=== PATIENT | male | born 1965 | race Caucasian/White ===

== ENCOUNTER 2018-03-10 12:16 | Emergency (ER) | payer BC ==
[2018-03-10 12:34] VITALS: RESP 18
[2018-03-10] MEDS ORDERED: SODIUM CHLORIDE 0.9% 1,000 ML IV STA (12:38)
[2018-03-10] MEDS ORDERED: MORPHINE SULFATE 2 MG/ML SYRINGE IVP STA ×2 (12:54→14:47)
[2018-03-10] MEDS ORDERED: BISOPROLOL-HCTZ 10-6.25 MG 1 EACH TAB PO STA (12:55)
[2018-03-10 13:14] LABS: Basophils % (A) 1 %; Eosinophils # (A) 0.2 k/uL (0-0.7); Eosinophils % (A) 3 %; HCT 45.8 % (39.0-53.0); HGB 15.9 gm/dL (13.0-17.5); Lymphocytes # (A) 1.4 k/uL (1.0-4.8); Lymphocytes % (A) 22 %; MCH 32.7 pg (25.0-35.0); MCHC 34.6 g/dL (31.0-37.0); MCV 94.3 fL (80.0-100.0); Mean Platelet Volume 6.5; Monocytes # (A) 0.3 k/uL (0-1.0); Monocytes % (A) 5 %; Neutrophils # (A) 4.3 k/uL (1.3-7.7); Neutrophils % (A) 68 %; Platelet Count 156 k/uL (150-450); RBC 4.86 m/uL (4.30-5.90); RDW 13.9 % (11.5-15.5); WBC 6.3 k/uL (3.8-10.6)
--- NOTE | 2018-03-10 13:14 | ED ---
Abdominal Pain HPI - General Chief Complaint: Abdominal Pain Stated Complaint: Back/Side Pain Time Seen by Provider: 03/10/18 12:36 Source: patient Mode of arrival: ambulatory Limitations: no limitations - History of Present Illness Initial Comments: 53-year-old male with past medical history of significant atherosclerotic disease including left-sided carotid endarterectomy status post CVA with no residual deficits, HTN and HLD presenting today for cc of left sided back pain. Pt states that 4 days ago while at work he noticed left sided back pain that felt deep and was not painful to touch, pt denied trauma/injury. Pain has constantly been increasing since that day and currently 8/10 deep aching pain. Pt denies any associated symptoms including abdominal pain, groin pain, hematuria, dysuria, urgency, frequency, chest pain, shortness of breath, dizziness, lightheadedness, dyspnea upon exertion. Pt presented for evaluation after 4 days of constant pain. Upon arrival pt hypertensive, pt states that he has not taken his Ziac in 4 days, he states he usually takes 10-6.5mg daily. Remainder of VS stable. - Related Data Home Medications Medication Instructions Recorded Confirmed Bisoprolol-Hctz 2.5-6.25 mg [Ziac 1 tab PO DAILY 12/22/13 04/11/16 2.5-6.25 MG] Previous Rx's Medication Instructions Recorded Aspirin 325 mg PO DAILY #30 tab 04/17/16 Atorvastatin [Lipitor] 40 mg PO HS #30 tab 04/17/16 HYDROcodone/APAP 5-325MG [[place] 1 each PO Q6HR PRN #30 tab 04/17/16 5-325] Nicotine 14Mg/24Hr Patch [Habitrol] 1 patch TRANSDERM DAILY #30 patch 04/17/16 Bisoprol/Hydrochlorothiazide [Ziac 1 each PO DAILY 30 Days #30 tab 03/10/18 10-6.25 MG] Ibuprofen [Motrin] 800 mg PO Q8H 7 Days #21 tab 03/10/18 Allergies Allergy/AdvReac Type Severity Reaction Status Date / Time shellfish derived [Shellfish] Allergy Severe Rash/Hives Verified 03/10/18 12:34 sulfamethoxazole AdvReac Severe Blistering Verified 03/10/18 12:34 [From Bactrim] all over body (not hives) trimethoprim [From Bactrim] AdvReac Severe Blistering Verified 03/10/18 12:34 all over body (not hives) monosodium glutamate [MSG] AdvReac Nausea & Verified 03/10/18 12:34 Vomiting Review of Systems ROS Statement: Those systems with pertinent positive or pertinent negative responses have been documented in the HPI. ROS Other: All systems not noted in ROS Statement are negative. Constitutional: Denies: fever, chills, night sweats ENT: Denies: ear pain, throat pain Respiratory: Denies: cough, dyspnea, wheezes, hemoptysis, stridor Cardiovascular: Denies: chest pain, palpitations, dyspnea on exertion, orthopnea , edema Gastrointestinal: Denies: abdominal pain, nausea, vomiting Genitourinary: Denies: urgency, dysuria, frequency, hematuria, testicular pain Musculoskeletal: Reports: back pain (left sided back/flank pain) Skin: Denies: rash, lesions Neurological: Denies: headache, weakness, numbness, paresthesias, confusion, abnormal gait Past Medical History Past Medical History: Hypertension Additional Past Medical History / Comment(s): psoriasis History of Any Multi-Drug Resistant Organisms: None Reported Past Surgical History: No Surgical Hx Reported Past Anesthesia/Blood Transfusion Reactions: No Reported Reaction Past Psychological History: No Psychological Hx Reported Smoking Status: Current every day smoker Past Alcohol Use History: Rare Past Drug Use History: None Reported - Past Family History Mother Family Medical History: Diabetes Mellitus General Exam - General Exam Comments Initial Comments: General: The patient is awake and alert, in no distress, and does not appear acutely ill. Pt appears well, pleasant. Eye: Pupils are equal, round and reactive to light, extra-ocular movements are intact. No nystagmus. There is normal conjunctiva bilaterally. No signs of icterus. Ears, nose, mouth and throat: There are moist mucous membranes and no oral lesions. Neck: The neck is supple, there is no tenderness or JVD.Right sided carotid artery bruit. Scarr left side of neck vertical. Cardiovascular: There is a regular rate and rhythm. No murmur, rub or gallop is appreciated. Respiratory: Lungs are clear to auscultation, respirations are non-labored, breath sounds are equal. No wheezes, stridor, rales, or rhonchi. Gastrointestinal: Soft, non-distended, non-tender abdomen without masses or organomegaly noted. No pulsating masses noted. There is no rebound or guarding present. No CVA tenderness. Bowel sounds are unremarkable. Musculoskeletal: Normal ROM at the lumbar spine, no tenderness. Strength 5/5 of the LE equally b/l. Sensation intact. DP pulses equal bilaterally 2+. No pain to palpation midline or paravertebral of the thoracic or lumbar spine. Neurological: A&O x 3. CN II-XII intact, There are no obvious motor or sensory deficits. Coordination appears grossly intact. Speech is normal. Skin: Skin is warm and dry and no rashes or lesions are noted. Psychiatric: Cooperative, appropriate mood & affect, normal judgment. Limitations: no limitations Course Vital Signs 03/10/18 03/10/18 03/10/18 12:32 13:25 15:22 Temperature 98.2 F Pulse Rate 72 73 Respiratory 18 18 Rate Blood Pressure 215/103 173/89 172/78 O2 Sat by Pulse 97 96 Oximetry 03/10/18 16:27 Temperature 97 F L Pulse Rate 88 Respiratory 18 Rate Blood Pressure 160/79 O2 Sat by Pulse 98 Oximetry Medical Decision Making - Medical Decision Making Pt with left sided constant flank/back pain with history of significant atherosclerotic and uncontrolled HTN concerning disease of the aorta vs renal calculi. CT prior to contrast revealed no kidney stone. CTA revealed borderline mildly enlarged upper abdominal, mesenteric, pelvic and left inguinal lymphadenopathy these are suspicious for early lymphoma. There are no evidence or findings suggestive of abdominal aneurysm. There is splenomegaly and hepatomegaly with hepatic proptosis. All findings were discussed with patient, including the fact the findings are concerning for lymphoma. CBC within normal limits. Patient stated that pain was relieved with morphine. It is unclear the exact etiology of patient's left-sided low back pain, pain may be due to compression of nerve due to lymphadenopathy. There are no lab findings , imaging or physical exam findings and concerning for acute process. Patient overall appears well, there is no signs of acute distress. Patient states that he is ready for discharge. Case discussed with Dr. Sheppard, who at this time feel pt is stable for d/c. Chest the importance of follow-up with primary care provider for possible lymph node biopsy to rule out lymphoma with patient. Patient verbalized understanding. Stating that he will make an appointment with his primary care provider on Monday. Patient blood pressure elevated upon arrival he was given his home dose of Ziac. Pt is out of Ziac and was discharged with prescription for 30 days. Repeat BP improved since admission and within acceptable limits. Pt discharged in stable condition, return parameters discussed in detail. - Lab Data Result diagrams: 03/10/18 13:04 03/10/18 13:04 Lab Results 03/10/18 03/10/18 03/10/18 Range/Units 13:04 13:04 13:30 WBC 6.3 (3.8-10.6) k/uL RBC 4.86 (4.30-5.90) m/uL Hgb 15.9 (13.0-17.5) gm/dL Hct 45.8 (39.0-53.0) % MCV 94.3 (80.0-100.0) fL MCH 32.7 (25.0-35.0) pg MCHC 34.6 (31.0-37.0) g/dL RDW 13.9 (11.5-15.5) % Plt Count 156 (150-450) k/uL Neutrophils % 68 % Lymphocytes % 22 % Monocytes % 5 % Eosinophils % 3 % Basophils % 1 % Neutrophils # 4.3 (1.3-7.7) k/uL Lymphocytes # 1.4 (1.0-4.8) k/uL Monocytes # 0.3 (0-1.0) k/uL Eosinophils # 0.2 (0-0.7) k/uL Basophils # 0.0 (0-0.2) k/uL Sodium 144 (137-145) mmol/L Potassium 4.3 (3.5-5.1) mmol/L Chloride 108 H (98-107) mmol/L Carbon Dioxide 29 (22-30) mmol/L Anion Gap 7 mmol/L BUN 21 H (9-20) mg/dL Creatinine 1.04 (0.66-1.25) mg/dL Est GFR (CKD-EPI)AfAm >90 (>60 ml/min/1.73 sqM) Est GFR (CKD-EPI)NonAf 83 (>60 ml/min/1.73 sqM) Glucose 124 H (74-99) mg/dL Calcium 9.3 (8.4-10.2) mg/dL Total Bilirubin 0.4 (0.2-1.3) mg/dL AST 28 (17-59) U/L ALT 51 (21-72) U/L Alkaline Phosphatase 38 (38-126) U/L Total Protein 6.6 (6.3-8.2) g/dL Albumin 4.3 (3.5-5.0) g/dL Amylase 62 (30-110) U/L Lipase 143 (23-300) U/L Urine Color Yellow Urine Appearance Clear (Clear) Urine pH 6.0 (5.0-8.0) Ur Specific [place] 1.021 (1.001-1.035) Urine Protein Trace H (Negative) Urine Glucose (UA) Negative (Negative) Urine Ketones Negative (Negative) Urine Blood Negative (Negative) Urine Nitrite Negative (Negative) Urine Bilirubin Negative (Negative) Urine Urobilinogen <2.0 (<2.0) mg/dL Ur Leukocyte Esterase Negative (Negative) Disposition Clinical Impression: Lymphadenopathy, Low back pain Disposition: HOME SELF-CARE Condition: Good Instructions: Lymphadenopathy (ED) Additional Instructions: Please use medication as discussed. Please follow-up with family doctor in the next 2 days for enlarged lymph nodes and BP medication, we recommend lymph node biopsy. Please return to emergency room if the symptoms increase or worsen or for any other concerns. Prescriptions: Bisoprol/Hydrochlorothiazide [Ziac 10-6.25 MG] 1 each PO DAILY 30 Days #30 tab Ibuprofen [Motrin] 800 mg PO Q8H 7 Days #21 tab Is patient prescribed a controlled substance at d/c from ED?: No Referrals: Hung Hwang MD [Primary Care Provider] - 1-2 days Time of Disposition: 16:11
[2018-03-10 13:23] LABS: ALT 51 U/L (21-72); AST 28 U/L (17-59); Albumin 4.3 g/dL (3.5-5.0); Alkaline Phosphatase 38 U/L (38-126); Amylase 62 U/L (30-110); Anion Gap 7 mmol/L; Blood Urea Nitrogen 21 mg/dL (9-20); Calcium 9.3 mg/dL (8.4-10.2); Carbon Dioxide 29 mmol/L (22-30); Chloride 108 mmol/L (98-107); Glucose 124 mg/dL (74-99); Lipase 143 U/L (23-300); Potassium 4.3 mmol/L (3.5-5.1); Sodium 144 mmol/L (137-145); Total Bilirubin 0.4 mg/dL (0.2-1.3); Total Protein 6.6 g/dL (6.3-8.2)
--- NOTE | 2018-03-10 14:18 | XR ---
EXAMINATION TYPE: XR KUB , 3 VIEWS DATE OF EXAM ORDERED: 03/10/2018 HISTORY: abdominal pain. COMPARISON: None. FINDINGS: The lung bases are clear. Within the abdomen, the abdominal gas pattern is normal. There is no evidence of obstruction or free air. No unusual calcifications are seen. IMPRESSION: NO ACUTE INTRA-ABDOMINAL ABNORMALITY.
[2018-03-10 14:38] LABS: Appearance,Urine Clear (Clear); Bilirubin,Urine Negative (Negative); Blood,Urine Negative (Negative); Color,Urine Yellow; Glucose,Urine (UA) Negative (Negative); Ketones,Urine Negative (Negative); Leukocyte Esterase,Urine Negative (Negative); Nitrite,Urine Negative (Negative); Protein,Urine Trace (Negative); Specific Gravity,Urine 1.021 (1.001-1.035); Urobilinogen,Urine <2.0 mg/dL (<2.0)
--- NOTE | 2018-03-10 15:21 | CT ---
EXAMINATION TYPE: CT angio abdomen pelvis DATE OF EXAM: 03/10/2018 COMPARISON: NONE HISTORY: 53-year-old male left flank pain TECHNIQUE: Contiguous axial scanning of the abdomen and pelvis before and after administration of 100 ml Isovue-370 IV contrast. Coronal/sagittal reconstructions performed. 3-D reconstructions generate d on a dedicated independent workstation. CT DLP: 2184.7 mGycm Automated exposure control for dose reduction was used. FINDINGS: Heart normal size without pericardial effusion. There is a tiny hiatal hernia noted. Strandy areas of atelectasis in the lower lungs and mild emphysematous change. No pleural effusion. Liver enlarged at 21.1 cm with diffuse low-attenuation. Subcentimeter hypodensity anterior mid liver to small for accurate CT characterization, probable cyst. Gallbladder, adrenal glands, kidneys, pancreas show no gross abnormality on noncontrast and early art erial phase imaging. Spleen enlarged measuring 18.0 cm. Scattered borderline to mildly enlarged upper abdominal lymph nodes. These measure up to 9 mm in the gastrohepatic ligament region, 1.3 cm jesus hepatis, and 1.7 cm aortocaval. Additional scattered prom inent right lower quadrant mesenteric lymph nodes measure up to 7 mm. Scattered nonenlarged mesenteri c lymph nodes are present elsewhere. No dilated small bowel, free fluid, or free air. Some prominent fluid. Small bowel loops in the lower abdomen, especially in the right lower quadrant. Appendix not visualized. Mild stool burden. No pericolonic inflammatory change. Tiny fatty umbilical hernia. Bladder urine distended. Enlarged 2.0 cm left inguinal lymph node and 1.2 cm left external iliac vandana n lymph node. Also, additional lymph nodes near the left pelvic sidewall also along the left external iliac chain measuring 8 mm and 7 mm. Mild atherosclerotic calcifications throughout the abdominal aorta and iliac arteries. Mild emphysema tous carotid calcifications at the origin of the celiac axis is also noted. No evidence for AAA. Bones: Mild degenerative changes of the hips. Additional facet arthropathy mid to lower lumbar spine. Focal disc herniation L5-S1 without spinal canal stenosis. Endplate spondylosis lower thoracic spine . IMPRESSION: 1. SCATTERED BORDERLINE AND MILDLY ENLARGED UPPER ABDOMINAL (1.3 CM JESUS HEPATIS), MESENTERIC (7 MM RIGHT LOWER QUADRANT), PELVIC (1.2 CM LEFT EXTERNAL ILIAC CHAIN), AND LEFT INGUINAL LYMPHADENOPATHY ( 2.0 CM). FINDINGS ARE NONSPECIFIC AND MAY BE REACTIVE/POST INFLAMMATORY. CORRELATE WITH PHYSICAL EXAM FINDINGS OF THE LEFT INGUINAL LYMPH NODE TO ASSESS FOR ANY SUSPICIOUS FEATURES. CLOSE CLINICAL SURVE ILLANCE IS RECOMMENDED. BIOPSY CAN BE PERFORMED IF THERE IS CONCERN FOR A MORE AGGRESSIVE ETIOLOGY NYE CH EARLY LYMPHOMA. OTHERWISE, THREE-MONTH FOLLOW-UP CT RECOMMENDED. 2. SPLENOMEGALY (18.0 CM). 3. HEPATOMEGALY (21.1 CM) WITH HEPATIC STEATOSIS. 4. NO EVIDENCE FOR AAA OR VISCERAL ARTERIAL OCCLUSION.
[2018-03-10 16:28] VITALS: BP 160/79; PULSE 88; TEMP 97
== END 2018-03-10 16:27 | disposition home or self-care (01) ==
LOC: EC 12:16
DX: M54.5 Low back pain (principal); R59.1 Generalized enlarged lymph nodes; R10.9 Unspecified abdominal pain; I10 Essential (primary) hypertension; F17.200 Nicotine dependence, unspecified, uncomplicated; Z79.899 Other long term (current) drug therapy; Z88.8 Allergy status to other drugs, medicaments and biological substances; Z88.2 Allergy status to sulfonamides; Z88.1 Allergy status to other antibiotic agents; Z91.013 Allergy to seafood; Z86.73 Personal history of transient ischemic attack (TIA), and cerebral infarction without residual deficits
CPT/HCPCS: 36415; 80053; 82150; 83690; 85025; 81003; 74018; 74174; 99284; 96374; 96376; 96361 ×3; J2270; Q9967

== ENCOUNTER 2018-03-22 09:22 | Emergency (ER) | payer BC ==
[2018-03-22 10:02] VITALS: RESP 18
[2018-03-22] MEDS ORDERED: MORPHINE SULFATE 2 MG/ML SYRINGE IM STA (10:12)
--- NOTE | 2018-03-22 10:54 | ED ---
Abdominal Pain HPI - General Chief Complaint: Abdominal Pain Stated Complaint: Side Abd Pain Time Seen by Provider: 03/22/18 09:59 Source: patient Mode of arrival: ambulatory Limitations: no limitations - History of Present Illness Initial Comments: 53-year-old male past medical history of hypertension, coronary artery atherosclerosis present today for chief complaint of left-sided abdominal mass painful to palpation. Patient states that he has been experiencing left flank pain for months he was seen here on February 28 as placed on antibiotics and given referral to general surgery. Patient was referred to Dr. Smyth. Patient attended an appointment on 03/19 where she was going to perform an ultrasound of the left abdomen on 03/29/2018. Pt states that his primary provider prescribed norco for the pain, however he states this makes his skin itch at night and he does not like to take it. Pt states that the pain persists and presents today for evaluation for persist pain/ultrasound. Patient denies any associated symptoms he denies nausea, vomiting, diarrhea, abdominal pain, back pain, urgency, frequency, dysuria, fever, chills, night sweats, chest pain , shortness of breath, dyspnea on exertion, headache, dizziness, visual changes , remainder of ROS (-). Upon arrival pt appears well, vital signs are stable there are no signs of acute distress. Pt ambulating without difficulty. - Related Data Home Medications Medication Instructions Recorded Confirmed Acetaminophen [Tylenol Extra 500 mg PO Q6H PRN 03/22/18 03/22/18 Strength] HYDROcodone/APAP 7.5-325MG [[place] 1 tab PO Q6HR PRN 03/22/18 03/22/18 7.5-325] Levofloxacin [Levaquin] 500 mg PO DAILY 03/22/18 03/22/18 Levothyroxine Sodium [Synthroid] 50 mcg PO DAILY 03/22/18 03/22/18 Testosterone Cypionate 50 mg IM QMONTH 03/22/18 03/22/18 [Depo-Testosterone] metroNIDAZOLE [Flagyl] 500 mg PO Q8H 03/22/18 03/22/18 Previous Rx's Medication Instructions Recorded Bisoprol/Hydrochlorothiazide [Ziac 1 each PO DAILY 30 Days #30 tab 03/10/18 10-6.25 MG] Allergies Allergy/AdvReac Type Severity Reaction Status Date / Time shellfish derived [Shellfish] Allergy Severe Rash/Hives Verified 03/22/18 10:02 sulfamethoxazole AdvReac Severe Blistering Verified 03/22/18 10:02 [From Bactrim] all over body (not hives) trimethoprim [From Bactrim] AdvReac Severe Blistering Verified 03/22/18 10:02 all over body (not hives) monosodium glutamate [MSG] AdvReac Nausea & Verified 03/22/18 10:02 Vomiting Review of Systems ROS Statement: Those systems with pertinent positive or pertinent negative responses have been documented in the HPI. ROS Other: All systems not noted in ROS Statement are negative. Constitutional: Denies: fever, chills, night sweats Eyes: Denies: vision change Respiratory: Denies: cough, dyspnea, wheezes, hemoptysis, stridor Cardiovascular: Denies: chest pain, palpitations, dyspnea on exertion Endocrine: Denies: fatigue Gastrointestinal: Reports: as per HPI (left flank pain/mass). Denies: abdominal pain, nausea, vomiting, diarrhea, constipation, hematemesis, melena Genitourinary: Denies: urgency, dysuria, frequency, hematuria Musculoskeletal: Denies: back pain Skin: Denies: rash, lesions Neurological: Denies: headache, weakness, numbness, paresthesias, confusion, abnormal gait Past Medical History Past Medical History: Hypertension Additional Past Medical History / Comment(s): carotid artery atherosclerosis. psoriasis History of Any Multi-Drug Resistant Organisms: None Reported Past Surgical History: No Surgical Hx Reported Past Anesthesia/Blood Transfusion Reactions: No Reported Reaction Past Psychological History: No Psychological Hx Reported Smoking Status: Current every day smoker Past Alcohol Use History: Rare Past Drug Use History: None Reported - Past Family History Mother Family Medical History: Diabetes Mellitus General Exam - General Exam Comments Initial Comments: General: The patient is awake and alert, in no distress, and does not appear acutely ill. Eye: Pupils are equal, round and reactive to light, extra-ocular movements are intact. No nystagmus. There is normal conjunctiva bilaterally. No signs of icterus. Ears, nose, mouth and throat: There are moist mucous membranes and no oral lesions. Neck: The neck is supple, there is no tenderness or JVD. Cardiovascular: There is a regular rate and rhythm. No murmur, rub or gallop is appreciated. Respiratory: Lungs are clear to auscultation, respirations are non-labored, breath sounds are equal. No wheezes, stridor, rales, or rhonchi. Gastrointestinal: No noted diaphoresis, jaundice, pallor, protecting postures or squirming. Symmetrical pigmentation of abdomen without signs of inflammation, scars, or striae. Umbilicus mildline, inverted without swelling. No dilated veins. Abdomen contour obese, no noted abdominal distention. No visible masses or palpable. No peristalsis, aortic pulsations, or ventral hernia. Bowel sounds audible in all 4 quadrants, unremarkable. No tenderness to light or deep palpation of the abdominal quadrants/regions or pelvic region. Pt does complain of pain to palpation of the questionable mass of the left flank. CVA testing negative. Liver edge, not palpable. Palpable spleen appears enlarged. right and left kidney not palpable. Superior bladder margin non-tender. Special Testing: Negative Stout, Rovsing, McBurney, Adryan, cutaneous hyperesthesia. Negative Heel Jar test. Digital rectal exam deferred. Negative penaloza turners or cullens sign Musculoskeletal: Normal ROM, no tenderness. Strength 5/5. Sensation intact. Pulses equal bilaterally 2+. Neurological: A&O x 3. CN II-XII intact, There are no obvious motor or sensory deficits. Coordination appears grossly intact. Speech is normal. Skin: Skin is warm and dry and no rashes or lesions are noted. Psychiatric: Cooperative, appropriate mood & affect, normal judgment. Limitations: no limitations Course Vital Signs 03/22/18 03/22/18 09:57 13:00 Temperature 98.6 F 98.3 F Pulse Rate 59 L 57 L Respiratory 18 18 Rate Blood Pressure 169/75 141/86 O2 Sat by Pulse 97 98 Oximetry Medical Decision Making - Medical Decision Making Physical exam unremarkable, benign abdominal exam. Laboratory studies unremarkable, no significant changes from 03/10/2018. Ultrasound was contacted to obtain copy of order for abdominal ultrasound as prescribed by general surgeon Dr. Smyth. Ultrasound revealed splenomegaly, other findings were non specific and have been discussed on 03/10/2018 after CTA was obtained. Patient was given Ultram for pain management upon discharge as he was having a reaction to the [place]. At this time feel patient is stable for discharge with follow-up with general surgery and his primary care provider. Patient verbalized understanding. Risks associated with use of Ultram discussed at length the patient who verbalized understanding. Case discussed in detail Dr. Ruelas at this time we feel patient has nonspecific left flank pain most likely due to his lymphadenopathy/splenomegaly. Pt is agreeable with plan, verbalized he is ready to go home. Pt discharged in stable condition, after return parameters discussed in detail. - Lab Data Result diagrams: 03/22/18 11:55 03/22/18 11:55 Lab Results 03/22/18 03/22/18 Range/Units 11:55 11:55 WBC 7.4 (3.8-10.6) k/uL RBC 5.15 (4.30-5.90) m/uL Hgb 15.8 (13.0-17.5) gm/dL Hct 48.5 (39.0-53.0) % MCV 94.1 (80.0-100.0) fL MCH 30.6 (25.0-35.0) pg MCHC 32.5 (31.0-37.0) g/dL RDW 14.2 (11.5-15.5) % Plt Count 139 L (150-450) k/uL Neutrophils % 70 % Lymphocytes % 18 % Monocytes % 7 % Eosinophils % 3 % Basophils % 1 % Neutrophils # 5.2 (1.3-7.7) k/uL Lymphocytes # 1.4 (1.0-4.8) k/uL Monocytes # 0.5 (0-1.0) k/uL Eosinophils # 0.2 (0-0.7) k/uL Basophils # 0.1 (0-0.2) k/uL Sodium 142 (137-145) mmol/L Potassium 4.4 (3.5-5.1) mmol/L Chloride 106 (98-107) mmol/L Carbon Dioxide 29 (22-30) mmol/L Anion Gap 7 mmol/L BUN 17 (9-20) mg/dL Creatinine 0.86 (0.66-1.25) mg/dL Est GFR (CKD-EPI)AfAm >90 (>60 ml/min/1.73 sqM) Est GFR (CKD-EPI)NonAf >90 (>60 ml/min/1.73 sqM) Glucose 117 H (74-99) mg/dL Calcium 9.3 (8.4-10.2) mg/dL Total Bilirubin 0.4 (0.2-1.3) mg/dL AST 29 (17-59) U/L ALT 58 (21-72) U/L Alkaline Phosphatase 34 L (38-126) U/L Total Protein 6.6 (6.3-8.2) g/dL Albumin 4.2 (3.5-5.0) g/dL Disposition Clinical Impression: Lymphadenopathy, Splenomegaly Disposition: HOME SELF-CARE Condition: Good Instructions: Lymphadenopathy (ED) Additional Instructions: Please use medication as discussed, these do not drive, operate machinery, or work under the influence of Ultram- no use of alcohol with this medication.. Please follow-up with general surgeon and primary care provider in next 1-2 days. Please return to emergency room if the symptoms increase or worsen or for any other concerns. Is patient prescribed a controlled substance at d/c from ED?: No Referrals: Hung Hwang MD [Primary Care Provider] - 1-2 days Maria Antonia Smyth MD [STAFF PHYSICIAN] - 1-2 days Time of Disposition: 13:21
[2018-03-22 12:10] LABS: Basophils # (A) 0.1 k/uL (0-0.2); Basophils % (A) 1 %; Eosinophils # (A) 0.2 k/uL (0-0.7); Eosinophils % (A) 3 %; HCT 48.5 % (39.0-53.0); HGB 15.8 gm/dL (13.0-17.5); Lymphocytes # (A) 1.4 k/uL (1.0-4.8); Lymphocytes % (A) 18 %; MCH 30.6 pg (25.0-35.0); MCHC 32.5 g/dL (31.0-37.0); MCV 94.1 fL (80.0-100.0); Monocytes # (A) 0.5 k/uL (0-1.0); Monocytes % (A) 7 %; Neutrophils # (A) 5.2 k/uL (1.3-7.7); Neutrophils % (A) 70 %; Platelet Count 139 k/uL (150-450); RBC 5.15 m/uL (4.30-5.90); RDW 14.2 % (11.5-15.5); WBC 7.4 k/uL (3.8-10.6)
[2018-03-22 12:20] LABS: ALT 58 U/L (21-72); AST 29 U/L (17-59); Albumin 4.2 g/dL (3.5-5.0); Alkaline Phosphatase 34 U/L (38-126); Anion Gap 7 mmol/L; Blood Urea Nitrogen 17 mg/dL (9-20); Calcium 9.3 mg/dL (8.4-10.2); Carbon Dioxide 29 mmol/L (22-30); Chloride 106 mmol/L (98-107); Glucose 117 mg/dL (74-99); Potassium 4.4 mmol/L (3.5-5.1); Sodium 142 mmol/L (137-145); Total Bilirubin 0.4 mg/dL (0.2-1.3); Total Protein 6.6 g/dL (6.3-8.2)
[2018-03-22 13:03] VITALS: BP 141/86; PULSE 57; TEMP 98.3
--- NOTE | 2018-03-22 13:05 | US ---
EXAMINATION TYPE: US abdomen complete DATE OF EXAM: 03/22/2018 COMPARISON:CT CLINICAL HISTORY: focus left flank. EXAM MEASUREMENTS: Liver Length: 22.9 cm Gallbladder Wall: 0.3 cm CBD: 0.4 cm Spleen: 17.1 cm Right Kidney: 9.8 x 4.8 x 4.7 cm Left Kidney: 11.8 x 5.8 x 5.7 cm Large body habitus, patient carrying most of his weight in his stomach. Extensive overlying bowel gas . Pancreas: Obscured by bowel gas Liver: decreased visualization of vessels suggestive of fatty infiltrate, increased attenuation, en larged, small cyst seen Gallbladder: No stones seen Evidence for sonographic Garibay's sign: no CBD: wnl Spleen: enlarged Right Kidney: wnl Left Kidney: wnl Upper IVC: wnl Abd Aorta: Obscured by overlying bowel gas LUQ scanned where patient feels large lump, no soft tissue mass seen. IMPRESSION: 1. The liver is increased in size and attenuation correlate for fatty infiltration or hepatitis. Simp le appearing left lobe hepatic cyst. 2. Correlate for splenomegaly.
[2018-03-22] MEDS ORDERED: traMADol 50 MG STARTER PACK 3 TAB BTL PO STA (13:19)
== END 2018-03-22 13:40 | disposition home or self-care (01) ==
LOC: EC 09:22
DX: R59.0 Localized enlarged lymph nodes (principal); R16.1 Splenomegaly, not elsewhere classified; R10.9 Unspecified abdominal pain; L40.9 Psoriasis, unspecified; F17.200 Nicotine dependence, unspecified, uncomplicated; Z88.2 Allergy status to sulfonamides; Z91.02 Food additives allergy status; Z91.013 Allergy to seafood; Z79.899 Other long term (current) drug therapy
CPT/HCPCS: 36415; 80053; 85025; 76700; 99284; 96372; J2270

== ENCOUNTER → 2018-05-01 | Outpatient (CLI) | payer BC ==
--- NOTE | 2018-05-01 14:44 | CT ---
EXAMINATION TYPE: CT chest w con DATE OF EXAM: 05/01/2018 COMPARISON: None HISTORY: Lymphadenopathy CT DLP: 936 mGycm, Automated exposure control for dose reduction was used. CONTRAST: Performed injected with 100 ml mL of Isovue 300. TECHNIQUE: Axial images were obtained at 5 mm thick sections. Reconstructed images are reviewed on [employer] computer in the coronal plane. FINDINGS: Portion of the thyroid visualized is normal. There is a 0.7 cm nodule within the lingula. Series 4 image 29. A low-density nodules in the anterior right middle lobe measuring 0.5 cm. Series 4 image 28. There is a 1.3 cm pretracheal lymph node present. The ascending aorta diameter at the level of the m ain pulmonary artery is 3.4 cm. The main pulmonary artery diameter at the bifurcation is 2.8 cm. Mil d coronary artery calcification is present. Limited CT sections are obtained through the upper abdomen. Some mild fatty infiltration is within th e liver. There may be a small cyst in the periphery of the right midlung measuring 1.0 cm. Series 3 i mage 48. IMPRESSIONS: 1. There is a 1.3 cm pretracheal lymph node. 2. Lung nodules within the bilateral lungs discussed above. One nodule is in each lung.
== END ==
LOC: RADCTMAIN 07:06
PROVIDERS: ATTEND Internal Medicine Hematology & Oncology
DX: R59.0 Localized enlarged lymph nodes (principal); R91.8 Other nonspecific abnormal finding of lung field; Z88.2 Allergy status to sulfonamides; Z91.013 Allergy to seafood
CPT/HCPCS: 82565; 84520; 71260; 36415; Q9967

== ENCOUNTER → 2018-06-27 | Outpatient (CLI) | payer BC ==
[2018-06-27 11:31] LABS: Blood Urea Nitrogen 12 mg/dL (9-20)
--- NOTE | 2018-06-27 16:10 | CT ---
EXAMINATION TYPE: CT ChestAbdPelvis w con DATE OF EXAM: 06/27/2018 INDICATION: Lymphadenopathy COMPARISON: 05/01/2018 CT DLP: 2607 mGycm CONTRAST: Performed with Oral Contrast and with IV Contrast, patient injected with 100 ml mL of Isovue 300. TECHNIQUE: Axial images at 5 mm thick sections. Reconstructed images in the coronal plane. Delayed images through the kidneys. FINDINGS: CT CHEST: Portion of the thyroid visualized is normal. There is a 0.5 cm density within the periphery of the anterior right middle lobe. Series 4 image 29 T his was present previously. A 0.9 cm nodules within the lingula. This was previously measured 0.[address] is recommended for reevaluation. Series 4 image 30 Previous 1.3 cm lymph node measures 1.4 cm which may be within measurement error. This has a fatty hi lum and appears stable in appearance. Shotty lymph nodes are present. The ascending aorta diameter at the level of the main pulmonary artery is 3.5 cm. The main pulmonary artery diameter at the bifurcation is 2.[address] ABDOMEN: Liver: There is a 0.8 cm hypodense area within the anterior right lobe of the liver. This was present previously. Fatty infiltration appears to be to the liver. Spleen: Normal Pancreas: Normal Adrenal glands: The adrenal glands are normal. Gallbladder: Normal Kidneys: No masses are evident. No hydronephrosis is present. No cysts are present. Delayed images were obtained through the kidneys, which remain unremarkable. Aorta: Vascular calcification is within the aorta. Inferior vena cava: Normal. CT PELVIS: Loops of bowel within the abdomen and pelvis are normal. There are loops of bowel which are incom pletely distended or lack oral contrast limiting their evaluation. Appendix: Not identified. Urinary bladder: Normal. Genitourinary structures: Prostate has mild prominence. Osseous structures: No suspicious lytic or sclerotic lesions. Sacroiliac joint degenerative changes a re present. Facet degenerative change with vacuum phenomenon is in the lower lumbar spine. Couple of sclerotic areas are within the lower thoracic spine vertebral bodies. IMPRESSIONS: 1. There may be some slight enlargement of a lingular nodule with possible enlargement of a right par atracheal lymph node. PET CT is recommended for additional workup.
== END | disposition home or self-care (01) ==
LOC: RADCTMAIN 10:30
PROVIDERS: ATTEND Internal Medicine Hematology & Oncology
DX: R59.0 Localized enlarged lymph nodes (principal); Z88.2 Allergy status to sulfonamides; Z91.013 Allergy to seafood
CPT/HCPCS: 82565; 84520; 71260; 74177; 36415; Q9967

== ENCOUNTER → 2018-11-07 | Outpatient (CLI) | payer BC ==
--- NOTE | 2018-11-07 09:32 | CT ---
EXAMINATION TYPE: CT chest w con DATE OF EXAM: 11/07/2018 COMPARISON: 06/27/2018 and 05/01/2018 HISTORY: 53-year-old male Localized enlarged lymph nodes TECHNIQUE: Contiguous axial scanning of the chest after the administration of 100 mL of Isovue 300. Coronal/sagittal reconstructions performed. CT DLP: 817.2mGycm. Automatic exposure control utilized for a dose reduction. FINDINGS: Heart normal size without pericardial effusion. Coronary vascular calcifications are present. Aorta normal caliber with conventional arch vessel branching anatomy. Right paratracheal lymph node measures up to 1.1 cm, unchanged from 05/01/2018. High right paratracheal lymph node measures 8 mm, unchanged. Bilateral axillary lymph nodes measure up to 2.1 cm, coronal image 57, unchanged and demonstrate larg e fatty hilum. No progressive lymphadenopathy from prior exam. Punctate 2 mm subpleural pulmonary nodule posterior left base, axial image 49 is unchanged. Strandy inferior lingular atelectasis. 7 mm lingular pulmonary nodule, axial image 34 unchanged from 05/01/2018 and a couple adjacent anterior right midlung pulmonary nodules measuring up to 5 mm, also unchanged from 05/01/2018. No consolidation or pleural effusion. Visualized upper abdomen shows splenomegaly at 18.7 cm, unchanged from 05/01/2018. Stable subcentimeter hypodensity anterior mid liver, probable cyst. Bones: Moderate degenerative disc disease mid thoracic spine. There is a large right paracentral disc protrusion redemonstrated possibly causing moderate spinal canal stenosis at T7-T8. IMPRESSION: 1. Scattered nonenlarged and a few mildly enlarged mediastinal (measuring up to 1.1 cm) and axillary lymph nodes (measuring up to 2.1 cm) are unchanged from 05/01/2018. Stability for 6 months is reassur ing. Consider additional one-year follow-up. 2. A few scattered pulmonary nodules measuring up to 7 mm are also unchanged from 05/01/2018. These c an also be reassessed at the one-year follow-up. 3. Splenomegaly (18.7 cm). 4. Degenerative disc disease with a right paracentral disc herniation redemonstrated at T7-T8.
== END | disposition home or self-care (01) ==
LOC: RADCTMAIN 07:04
PROVIDERS: ATTEND Internal Medicine Hematology & Oncology
DX: R59.0 Localized enlarged lymph nodes (principal); R91.8 Other nonspecific abnormal finding of lung field; Z88.2 Allergy status to sulfonamides; Z91.013 Allergy to seafood
CPT/HCPCS: 71260; Q9967

== ENCOUNTER 2020-03-01 12:20 | Emergency (ER) | payer BC ==
[2020-03-01] MEDS ORDERED: IPRATROPIUM-ALBUTEROL 3 ML NEB INHALATION STA (12:58)
--- NOTE | 2020-03-01 13:03 | ED ---
SOB HPI - General Chief Complaint: Shortness of Breath Stated Complaint: SOB Time Seen by Provider: 03/01/20 12:49 Source: patient, RN notes reviewed Mode of arrival: wheelchair Limitations: no limitations - History of Present Illness Initial Comments: This is a 55-year-old male with a history of sleep apnea and uses a CPAP machine who states that shortness breath or past couple weeks he did get somewhat better he did use meticulously was seen with yesterday started developing shortness of breath with chest tightness he states at its worse and tightness in 8-910 severity now it's 5-6/10. He has exertional dyspnea they've have of exertion. No fevers chills nausea vomiting sweats no cough or phlegm production no other modifying factors. He is a smoker one pack a day he just started smoking cessation 2 days ago. He states she's never been diagnosed with a lung disorder. MD Complaint: shortness of breath, chest pain - Related Data Home Medications Medication Instructions Recorded Confirmed Acetaminophen [Tylenol Extra 500 mg PO Q6H PRN 03/22/18 01/30/19 Strength] HYDROcodone/APAP 7.5-325MG [[place] 1 tab PO Q6HR PRN 03/22/18 01/30/19 7.5-325] Levofloxacin [Levaquin] 500 mg PO DAILY 03/22/18 01/30/19 Levothyroxine Sodium [Synthroid] 50 mcg PO DAILY 03/22/18 01/30/19 metFORMIN HCL [Glucophage] 500 mg PO BID 01/30/19 01/30/19 Previous Rx's Medication Instructions Recorded Bisoprol/Hydrochlorothiazide [Ziac 1 each PO DAILY 30 Days #30 tab 03/10/18 10-6.25 MG] Acetaminophen [Tylenol] 500 mg PO Q4-6H PRN 5 Days #21 tab 03/22/18 Ipratropium/Albuter 20-100Mcg 1 puff INHALATION QID PRN 30 Days 03/01/20 [Combivent Respimat 20-100Mcg #1 puff Inhaler] predniSONE [Deltasone] 20 mg PO BID #10 tab 03/01/20 Allergies Allergy/AdvReac Type Severity Reaction Status Date / Time shellfish derived [Shellfish] Allergy Severe Rash/Hives Verified 03/01/20 12:45 sulfamethoxazole AdvReac Severe Blistering Verified 03/01/20 12:45 [From Bactrim] all over body (not hives) trimethoprim [From Bactrim] AdvReac Severe Blistering Verified 03/01/20 12:45 all over body (not hives) monosodium glutamate [MSG] AdvReac Nausea & Verified 03/01/20 12:45 Vomiting Review of Systems ROS Statement: Those systems with pertinent positive or pertinent negative responses have been documented in the HPI. ROS Other: All systems not noted in ROS Statement are negative. Past Medical History Past Medical History: Diabetes Mellitus, Hyperlipidemia, Hypertension Additional Past Medical History / Comment(s): carotid artery atherosclerosis. psoriasis History of Any Multi-Drug Resistant Organisms: None Reported Past Surgical History: No Surgical Hx Reported Additional Past Surgical History / Comment(s): carotid artery plaque clean out Past Anesthesia/Blood Transfusion Reactions: No Reported Reaction Past Psychological History: No Psychological Hx Reported Smoking Status: Current every day smoker Past Alcohol Use History: Rare Past Drug Use History: None Reported - Past Family History Mother Family Medical History: Diabetes Mellitus General Exam - General Exam Comments Initial Comments: This a well-developed well-nourished awake alert oriented 3 male Limitations: no limitations General appearance: alert, in no apparent distress Head exam: Present: atraumatic, normocephalic, normal inspection Eye exam: Present: normal appearance, PERRL, EOMI. Absent: scleral icterus, conjunctival injection, periorbital swelling ENT exam: Present: normal exam, mucous membranes moist Neck exam: Present: normal inspection, full ROM, other. Absent: tenderness, meningismus, lymphadenopathy Respiratory exam: Present: wheezes, decreased breath sounds (No stridor JVD or bruits). Absent: respiratory distress, rales, rhonchi, stridor Cardiovascular Exam: Present: regular rate, normal rhythm, normal heart sounds. Absent: systolic murmur, diastolic murmur, rubs, gallop, clicks GI/Abdominal exam: Present: soft, normal bowel sounds. Absent: distended, tenderness, guarding, rebound, rigid Extremities exam: Present: normal inspection, full ROM, normal capillary refill. Absent: tenderness, pedal edema, joint swelling, calf tenderness Back exam: Present: normal inspection Neurological exam: Present: alert, oriented X3, CN II-XII intact Psychiatric exam: Present: normal affect, normal mood Skin exam: Present: warm, dry, intact, normal color. Absent: rash Course Vital Signs 03/01/20 03/01/20 03/01/20 12:43 13:10 13:14 Temperature 99 F Pulse Rate 73 71 70 Respiratory 16 29 H Rate Blood Pressure 163/93 193/84 O2 Sat by Pulse 94 L 93 L Oximetry 03/01/20 03/01/20 13:22 13:50 Temperature Pulse Rate 66 66 Respiratory 22 Rate Blood Pressure 161/68 O2 Sat by Pulse 98 Oximetry Medical Decision Making - Medical Decision Making I did review the imaging and report no acute findings. Patient is feeling markedly improved after the treatment rendered. Lung sounds are clear. Aeration good pulse oximetry. The presentation is consistent with acute bronchospasm. Patient be discharged on appropriate medication he will follow-up with his doctor. He was encouraged to continue with smoking cessation. - Lab Data Result diagrams: 03/01/20 13:05 03/01/20 13:05 Lab Results 03/01/20 03/01/20 03/01/20 Range/Units 13:05 13:05 13:05 WBC 8.7 (3.8-10.6) k/uL RBC 4.75 (4.30-5.90) m/uL Hgb 15.5 (13.0-17.5) gm/dL Hct 45.7 (39.0-53.0) % MCV 96.2 (80.0-100.0) fL MCH 32.7 (25.0-35.0) pg MCHC 34.0 (31.0-37.0) g/dL RDW 14.1 (11.5-15.5) % Plt Count 119 L (150-450) k/uL Neutrophils % 86 % Lymphocytes % 7 % Monocytes % 4 % Eosinophils % 1 % Basophils % 1 % Neutrophils # 7.5 (1.3-7.7) k/uL Lymphocytes # 0.6 L (1.0-4.8) k/uL Monocytes # 0.4 (0-1.0) k/uL Eosinophils # 0.1 (0-0.7) k/uL Basophils # 0.1 (0-0.2) k/uL PT 9.7 (9.0-12.0) sec INR 0.9 (<1.2) APTT 22.4 (22.0-30.0) sec D-Dimer 0.30 (<0.60) mg/L FEU Sodium 141 (137-145) mmol/L Potassium 4.5 (3.5-5.1) mmol/L Chloride 107 (98-107) mmol/L Carbon Dioxide 28 (22-30) mmol/L Anion Gap 6 mmol/L BUN 21 H (9-20) mg/dL Creatinine 0.98 (0.66-1.25) mg/dL Est GFR (CKD-EPI)AfAm >90 (>60 ml/min/1.73 sqM) Est GFR (CKD-EPI)NonAf 88 (>60 ml/min/1.73 sqM) Glucose 249 H (74-99) mg/dL Plasma Lactic Acid Denis (0.7-2.0) mmol/L Calcium 9.3 (8.4-10.2) mg/dL Magnesium 1.9 (1.6-2.3) mg/dL Total Bilirubin 0.5 (0.2-1.3) mg/dL AST 32 (17-59) U/L ALT 67 H (4-49) U/L Alkaline Phosphatase 40 (38-126) U/L Creatine Kinase 79 (55-170) U/L Troponin I (0.000-0.034) ng/mL NT-Pro-B Natriuret Pep pg/mL Total Protein 6.0 L (6.3-8.2) g/dL Albumin 4.1 (3.5-5.0) g/dL 03/01/20 03/01/20 03/01/20 Range/Units 13:05 13:05 13:05 WBC (3.8-10.6) k/uL RBC (4.30-5.90) m/uL Hgb (13.0-17.5) gm/dL Hct (39.0-53.0) % MCV (80.0-100.0) fL MCH (25.0-35.0) pg MCHC (31.0-37.0) g/dL RDW (11.5-15.5) % Plt Count (150-450) k/uL Neutrophils % % Lymphocytes % % Monocytes % % Eosinophils % % Basophils % % Neutrophils # (1.3-7.7) k/uL Lymphocytes # (1.0-4.8) k/uL Monocytes # (0-1.0) k/uL Eosinophils # (0-0.7) k/uL Basophils # (0-0.2) k/uL PT (9.0-12.0) sec INR (<1.2) APTT (22.0-30.0) sec D-Dimer (<0.60) mg/L FEU Sodium (137-145) mmol/L Potassium (3.5-5.1) mmol/L Chloride (98-107) mmol/L Carbon Dioxide (22-30) mmol/L Anion Gap mmol/L BUN (9-20) mg/dL Creatinine (0.66-1.25) mg/dL Est GFR (CKD-EPI)AfAm (>60 ml/min/1.73 sqM) Est GFR (CKD-EPI)NonAf (>60 ml/min/1.73 sqM) Glucose (74-99) mg/dL Plasma Lactic Acid Denis 1.8 (0.7-2.0) mmol/L Calcium (8.4-10.2) mg/dL Magnesium (1.6-2.3) mg/dL Total Bilirubin (0.2-1.3) mg/dL AST (17-59) U/L ALT (4-49) U/L Alkaline Phosphatase (38-126) U/L Creatine Kinase (55-170) U/L Troponin I 0.022 (0.000-0.034) ng/mL NT-Pro-B Natriuret Pep 811 pg/mL Total Protein (6.3-8.2) g/dL Albumin (3.5-5.0) g/dL - EKG Data -: EKG Interpreted by Me EKG shows normal: sinus rhythm EKG Comments: Sinus rhythm at 74. Interval 124 QRS duration 104 QT since QTC 374/413 LVH nonspecific inferior configuration - Radiology Data Radiology results: report reviewed (I did review the imaging and report no acute findings.), image reviewed Disposition Clinical Impression: Acute bronchospasm, Smoking Disposition: HOME SELF-CARE Condition: Good Instructions (If sedation given, give patient instructions): Bronchospasm (ED) Prescriptions: Ipratropium/Albuter 20-100Mcg [Combivent Respimat 20-100Mcg Inhaler] 1 puff INHALATION QID PRN 30 Days #1 puff PRN Reason: Dyspnea predniSONE [Deltasone] 20 mg PO BID #10 tab Is patient prescribed a controlled substance at d/c from ED?: No Referrals: Hung Hwang MD [Primary Care Provider] - 1-2 days
[2020-03-01 13:16] LABS: Basophils # (A) 0.1 k/uL (0-0.2); Basophils % (A) 1 %; Eosinophils # (A) 0.1 k/uL (0-0.7); Eosinophils % (A) 1 %; HCT 45.7 % (39.0-53.0); HGB 15.5 gm/dL (13.0-17.5); Lymphocytes # (A) 0.6 k/uL (1.0-4.8); Lymphocytes % (A) 7 %; MCH 32.7 pg (25.0-35.0); MCV 96.2 fL (80.0-100.0); Mean Platelet Volume 7.4; Monocytes # (A) 0.4 k/uL (0-1.0); Monocytes % (A) 4 %; Neutrophils # (A) 7.5 k/uL (1.3-7.7); Neutrophils % (A) 86 %; Platelet Count 119 k/uL (150-450); RBC 4.75 m/uL (4.30-5.90); RDW 14.1 % (11.5-15.5); WBC 8.7 k/uL (3.8-10.6)
[2020-03-01 13:26] LABS: ALT 67 U/L (4-49); AST 32 U/L (17-59); African American GFR (CKD) >90 (>60 ml/min/1.73 sqM); Albumin 4.1 g/dL (3.5-5.0); Alkaline Phosphatase 40 U/L (38-126); Anion Gap 6 mmol/L; Blood Urea Nitrogen 21 mg/dL (9-20); Calcium 9.3 mg/dL (8.4-10.2); Carbon Dioxide 28 mmol/L (22-30); Chloride 107 mmol/L (98-107); Creatine Kinase 79 U/L (55-170); Glucose 249 mg/dL (74-99); Magnesium 1.9 mg/dL (1.6-2.3); Non-African American GFR(CKD) 88 (>60 ml/min/1.73 sqM); Potassium 4.5 mmol/L (3.5-5.1); Sodium 141 mmol/L (137-145); Total Bilirubin 0.5 mg/dL (0.2-1.3)
[2020-03-01 13:31] LABS: D-Dimer 0.3 mg/L FEU (<0.60); INR 0.9 (<1.2); Partial Thromboplastin Time 22.4 sec (22.0-30.0); Prothrombin Time 9.7 sec (9.0-12.0)
--- NOTE | 2020-03-01 14:05 | XR ---
EXAMINATION TYPE: XR chest 2V DATE OF EXAM: 03/01/2020 COMPARISON: CT 11/07/2018. HISTORY: Shortness of breath and chest tightness. TECHNIQUE: Frontal and lateral views of the chest are obtained. FINDINGS: There is no focal air space opacity, pleural effusion, or pneumothorax seen. The cardiac silhouette size is borderline enlarged. The osseous structures are intact. IMPRESSION: No acute cardiopulmonary process.
[2020-03-01] MEDS ORDERED: methylPREDNISolone SOD SUCCI 125 MG/2 ML VIAL IV STA (14:29)
[2020-03-01 14:55] VITALS: BP 147/78; PULSE 74; RESP 16; TEMP 98
== END 2020-03-01 14:54 | disposition home or self-care (01) ==
LOC: EC 12:20
DX: J98.01 Acute bronchospasm (principal); F17.200 Nicotine dependence, unspecified, uncomplicated; E11.9 Type 2 diabetes mellitus without complications; Z79.84 Long term (current) use of oral hypoglycemic drugs; Z88.2 Allergy status to sulfonamides; Z88.8 Allergy status to other drugs, medicaments and biological substances; Z91.013 Allergy to seafood
CPT/HCPCS: 36415; 94640; 93005; 85379; 83880; 80053; 82550; 83605; 83735; 84484; 85025; 85610; 85730; 71046; 99285; 96374; J2930

== ENCOUNTER → 2020-03-17 | Outpatient (CLI) | payer BC ==
--- NOTE | 2020-03-17 18:44 | US ---
EXAMINATION TYPE: US carotid duplex BILAT DATE OF EXAM: 03/17/2020 COMPARISON: Ultrasound carotids 04/12/2016. CTA head and neck 04/12/2016. CLINICAL HISTORY: R07.9 Chest pain, I10 Hypertension. History of left endarterectomy EXAM MEASUREMENTS: RIGHT: Peak Systolic Velocity (PSV) cm/sec ----- Right CCA: 45.4 ----- Right ICA: 180. ----- Right ECA: 544. ICA/CCA ratio: 4 RIGHT: End Diastole cm/sec ----- Right CCA: 19.9 ----- Right ICA: 85.0 ----- Right ECA: 150 LEFT: Peak Systolic Velocity (PSV) cm/sec ----- Left CCA: 80.4 ----- Left ICA: 103.0 ----- Left ECA: 111.0 ICA/CCA ratio: 1.28 LEFT: End Diastole cm/sec ----- Left CCA: 21.5 ----- Left ICA: 32.5 ----- Left ECA: 24.6 VERTEBRALS (direction of flow): Right Vertebral: Antegrade Left Vertebral: Antegrade Marked atherosclerotic plaque of the right carotid bulb. IMPRESSION: 1. 50-69% stenosis of the right proximal internal carotid artery. 2. No hemodynamically significant stenosis on the left. Criteria for Assigning % of Stenosis / Diameter reduction (Estimation based on the indirect measurements of the internal carotid artery velocities (ICA PSV). 1. Normal (no stenosis)=ICA PSV < 125 cm/s: ratio < 2.0: ICA EDV<40 cm/s. 2. Less than 50% stenosis=ICA PSV < 125 cm/s: ratio < 2.0: ICA EDV<40 cm/s. 3. 50 to 69% stenosis=ICA PSV of 125 to 230 cm/s: ration 2.0 ? 4.0: ICA EDV 40-100 cm/s. 4. Greater than 70% stenosis to near occlusion= ICA PSV > 230 cm/s: ratio > 4.0: ICA EDV > 100 cm/s. 5. Near occlusion= ICA PSV velocities may be low or undetectable: variable ratio and ICA EDV. 6. Total occlusion=unable to detect flow.
== END | disposition home or self-care (01) ==
LOC: RADNMMAIN 11:17
PROVIDERS: ATTEND Family Medicine
DX: I65.21 Occlusion and stenosis of right carotid artery (principal)
CPT/HCPCS: 93880

== ENCOUNTER → 2020-03-23 | Outpatient (CLI) | payer BC ==
[~2020-03-23] MED LIST: ATROPINE SULFATE 0.1 MG/ML 10ML SYRINGE ONE; DOBUTamine DRIP for NUC MED 500 MG in DEXTROSE/WATER 1 250ML.BAG IV ONE
--- NOTE | 2020-03-23 12:50 | ECHOS ---
STRESS ECHOCARDIOGRAM INDICATIONS: Shortness of breath/palpitations. MEDICATIONS: Ziac, Metformin. BASELINE HEART RATE: 61 BASELINE BLOOD PRESSURE: 183/99 MAXIMUM HEART RATE: 92 MMODL / IJN: [id number] /
== END | disposition home or self-care (01) ==
LOC: RADNMMAIN 09:43
PROVIDERS: ATTEND Family Medicine
DX: R07.9 Chest pain, unspecified (principal)
CPT/HCPCS: 93351; J1250; J0461; Q9950

== ENCOUNTER 2020-04-13 10:26 | Observation (INO) | payer BC ==
--- NOTE | 2020-04-13 11:30 | CT ---
EXAMINATION TYPE: CT brain wo con DATE OF EXAM: 04/11/2016 COMPARISON: None HISTORY: Coordination and Balance issues CT DLP: 1099.[address] of the brain was performed. The ventricles, basal cisterns and sulci overlying the cerebral convexities demonstrate mild enlargem ent. There is no evidence for intracranial hemorrhage or sulcal effacement. There is decreased attenuation about the periventricular white matter and deep white matter of both c erebral hemispheres, compatible with chronic small vessel ischemia. Differential diagnosis does inclu de demyelination. No mass effects are seen.No midline shift. Osseous calvarium is intact. If symptoms persist consider MRI. IMPRESSION: 1. Age related atrophic and chronic small vessel ischemic change without acute intracranial process s een at this time.
--- NOTE | 2020-04-13 11:40 | XR ---
EXAMINATION TYPE: XR chest 2V DATE OF EXAM: 04/13/2020 COMPARISON: 03/01/2020 HISTORY: Shortness of breath TECHNIQUE: Frontal and lateral views of the chest are obtained. FINDINGS: Scattered senescent parenchymal changes noted. Hyperinflation compatible with COPD. No evidence for infiltrate. No evidence for atelectasis. Heart size is stable. Mediastinal structures are stable and grossly unremarkable. No evidence for hilar prominence. Degenerative changes dorsal spine. IMPRESSION: 1. No evidence for acute pulmonary disease.
[2020-04-13 11:43] LABS: INR 0.9 (<1.2); Partial Thromboplastin Time 22.8 sec (22.0-30.0); Prothrombin Time 9.6 sec (9.0-12.0)
[2020-04-13 12:02] LABS: Basophils % (A) 0 %; Eosinophils % (A) 0 %; HCT 47.3 % (39.0-53.0); HGB 15.9 gm/dL (13.0-17.5); Lymphocytes # (A) 0.5 k/uL (1.0-4.8); Lymphocytes % (A) 5 %; MCH 32.5 pg (25.0-35.0); MCHC 33.7 g/dL (31.0-37.0); MCV 96.5 fL (80.0-100.0); Mean Platelet Volume 7.6; Monocytes # (A) 0.3 k/uL (0-1.0); Monocytes % (A) 3 %; Neutrophils # (A) 7.9 k/uL (1.3-7.7); Neutrophils % (A) 91 %; Platelet Count 120 k/uL (150-450); RDW 13.3 % (11.5-15.5); WBC 8.7 k/uL (3.8-10.6)
[2020-04-13 12:03] LABS: ALT 33 U/L (4-49); AST 18 U/L (17-59); African American GFR (CKD) >90 (>60 ml/min/1.73 sqM); Albumin 4.1 g/dL (3.5-5.0); Alkaline Phosphatase 37 U/L (38-126); Anion Gap 5 mmol/L; Blood Urea Nitrogen 22 mg/dL (9-20); Calcium 9.1 mg/dL (8.4-10.2); Carbon Dioxide 26 mmol/L (22-30); Chloride 105 mmol/L (98-107); Glucose 345 mg/dL (74-99); Non-African American GFR(CKD) >90 (>60 ml/min/1.73 sqM); Potassium 4.6 mmol/L (3.5-5.1); Sodium 136 mmol/L (137-145); Total Bilirubin 0.5 mg/dL (0.2-1.3)
[2020-04-13] MEDS ORDERED: INSULIN REGULAR 100 UNIT/ML VIAL SQ ONE (12:19)
[2020-04-13] MEDS ORDERED: SODIUM CHLORIDE 0.9% 500 ML 500 ML IV ONE (12:19)
--- NOTE | 2020-04-13 13:23 | ED ---
Neuro HPI - General Chief Complaint: Neuro Symptoms/Deficit Stated Complaint: Cornation Diff/Eye sight issues Time Seen by Provider: 04/13/20 10:50 Source: patient Mode of arrival: wheelchair Limitations: no limitations - History of Present Illness Is the patient presenting with stroke symptoms?: No Onset/Timin -: hour(s) Initial Comments: 55-year-old male with uncontrolled diabetes presenting to the emergency department today for chief complaint of vision changes x 16 hours began 7PM while watching TV. Patient states this vision appears pixelated, slightly blurred, he denies double vision/vision loss. He states that he also has felt slightly dizzy, like the room spins at time. patient denies headaches, nausea, vomiting, fevers, neck pain, SOB, weakness of extremities. He admits to both legs feeling heavy. He denies weakness. Denies sensation deficits. Denies facial asymmetry. Pateitn has had previous CVA without deficits. Patient has no additional complaints. Pt is supposed to have eye exam due to his DM in May. Pt very pleasant on arrival no distress. - Related Data Home Medications: Home Medications Medication Instructions Recorded Confirmed metFORMIN HCL [Glucophage] 500 mg PO BID 01/30/19 04/13/20 Albuterol Sulfate [Albuterol 1 - 2 puff PO RT-Q4H PRN 04/13/20 04/13/20 Sulfate Hfa] Atorvastatin Calcium [Lipitor] 40 mg PO HS 04/13/20 04/13/20 amLODIPine [Norvasc] 5 mg PO DAILY 04/13/20 04/13/20 lisinopriL [Zestril] 10 mg PO DAILY 04/13/20 04/13/20 Allergies/Adverse Reactions: Allergies Allergy/AdvReac Type Severity Reaction Status Date / Time shellfish derived [Shellfish] Allergy Severe Rash/Hives Verified 04/13/20 12:31 sulfamethoxazole AdvReac Severe Blistering Verified 04/13/20 12:31 [From Bactrim] all over body (not hives) trimethoprim [From Bactrim] AdvReac Severe Blistering Verified 04/13/20 12:31 all over body (not hives) monosodium glutamate [MSG] AdvReac Nausea & Verified 04/13/20 12:31 Vomiting Review of Systems ROS Statement: Those systems with pertinent positive or pertinent negative responses have been documented in the HPI. ROS Other: All systems not noted in ROS Statement are negative. General Exam - General Exam Comments Initial Comments: General: The patient is awake and alert, in no distress Eye: +3mm pupils are equal, round and reactive to light, extra-ocular movements are intact. No nystagmus. VF intact to confrontation b/l There is normal conjunctiva bilaterally. No signs of icterus. Ears, nose, mouth and throat: There are moist mucous membranes and no oral lesi ons. Neck: The neck is supple, there is no tenderness or JVD. Cardiovascular: There is a regular rate and rhythm. No murmur, rub or gallop is appreciated. Respiratory: Lungs are clear to auscultation, respirations are non-labored, breath sounds are equal. No wheezes, stridor, rales, or rhonchi. Gastrointestinal: Soft, non-distended, non-tender abdomen without masses or organomegaly noted. There is no rebound or guarding present. Musculoskeletal: Normal ROM, no tenderness. Strength 5/5. Sensation intact. radial and DP pulses equal bilaterally 2+. Neurological: A&O x 3. CN II-XII intact,memory intact to immediately, intermediate and oil heaterman recall. Able to follow simple verbal. Able to name a common object (pen). High quality, labial (pa) and lingual (la) speech. Low quality posterior pharynx/larynx (ga) voice sounds. Able to express general knowledge. No hemineglect or inattention noted. Finger agnosia (-) and spatially oriented (identified L index finger touched R shoulder with L index finger).Light touch sensation present over the face, chest, abdomen, back, UE bilaterally, and LE bilaterally. Able to localize point during point localization b/l and extinction. No visible bulk atrophy, hypertrophy, fasciculations, or myoclonus of the UE or LE b/l. Full PROM in UE and LE b/l. Bilateral muscle strength 5/5 for the following muscles: deltoid, biceps, triceps, brachioradialis, wrist extensors/flexor, hip flexor, hip abductors/adductors, hamstrings, quadriceps, feet dorsiflexors/plantar flexors. Finger to nose, finger to the examiners finger, and heel to moore coordinated and accurate b/l. Coordinated and even demonstration of hand flip, finger to thumb, and toe tap b/l. Gait is coordinated and even in stride.(-) pronator drift. No nuchal rigidity. Skin: Skin is warm and dry and no rashes or lesions are noted. No leg swelling Psychiatric: Cooperative, appropriate mood & affect, normal judgment. Limitations: no limitations Stroke MDM - Lab Data Result diagrams: 04/13/20 11:04/13/20 11: Lab Results 04/13/20 04/13/20 04/13/20 Range/Units 11: 11: 11: WBC 8.7 (3.8-10.6) k/uL RBC 4.90 (4.30-5.90) m/uL Hgb 15.9 (13.0-17.5) gm/dL Hct 47.3 (39.0-53.0) % MCV 96.5 (80.0-100.0) fL MCH 32.5 (25.0-35.0) pg MCHC 33.7 (31.0-37.0) g/dL RDW 13.3 (11.5-15.5) % Plt Count 120 L (150-450) k/uL MPV 7.6 Neutrophils % 91 % Lymphocytes % 5 % Monocytes % 3 % Eosinophils % 0 % Basophils % 0 % Neutrophils # 7.9 H (1.3-7.7) k/uL Lymphocytes # 0.5 L (1.0-4.8) k/uL Monocytes # 0.3 (0-1.0) k/uL Eosinophils # 0.0 (0-0.7) k/uL Basophils # 0.0 (0-0.2) k/uL PT 9.6 (9.0-12.0) sec INR 0.9 (<1.2) APTT 22.8 (22.0-30.0) sec Sodium 136 L (137-145) mmol/L Potassium 4.6 (3.5-5.1) mmol/L Chloride 105 (98-107) mmol/L Carbon Dioxide 26 (22-30) mmol/L Anion Gap 5 mmol/L BUN 22 H (9-20) mg/dL Creatinine 0.88 (0.66-1.25) mg/dL Est GFR (CKD-EPI)AfAm >90 (>60 ml/min/1.73 sqM) Est GFR (CKD-EPI)NonAf >90 (>60 ml/min/1.73 sqM) Glucose 345 H (74-99) mg/dL Calcium 9.1 (8.4-10.2) mg/dL Total Bilirubin 0.5 (0.2-1.3) mg/dL AST 18 (17-59) U/L ALT 33 (4-49) U/L Alkaline Phosphatase 37 L (38-126) U/L Troponin I (0.000-0.034) ng/mL Total Protein 6.0 L (6.3-8.2) g/dL Albumin 4.1 (3.5-5.0) g/dL 04/13/20 Range/Units 11:05 WBC (3.8-10.6) k/uL RBC (4.30-5.90) m/uL Hgb (13.0-17.5) gm/dL Hct (39.0-53.0) % MCV (80.0-100.0) fL MCH (25.0-35.0) pg MCHC (31.0-37.0) g/dL RDW (11.5-15.5) % Plt Count (150-450) k/uL MPV Neutrophils % % Lymphocytes % % Monocytes % % Eosinophils % % Basophils % % Neutrophils # (1.3-7.7) k/uL Lymphocytes # (1.0-4.8) k/uL Monocytes # (0-1.0) k/uL Eosinophils # (0-0.7) k/uL Basophils # (0-0.2) k/uL PT (9.0-12.0) sec INR (<1.2) APTT (22.0-30.0) sec Sodium (137-145) mmol/L Potassium (3.5-5.1) mmol/L Chloride (98-107) mmol/L Carbon Dioxide (22-30) mmol/L Anion Gap mmol/L BUN (9-20) mg/dL Creatinine (0.66-1.25) mg/dL Est GFR (CKD-EPI)AfAm (>60 ml/min/1.73 sqM) Est GFR (CKD-EPI)NonAf (>60 ml/min/1.73 sqM) Glucose (74-99) mg/dL Calcium (8.4-10.2) mg/dL Total Bilirubin (0.2-1.3) mg/dL AST (17-59) U/L ALT (4-49) U/L Alkaline Phosphatase (38-126) U/L Troponin I 0.021 (0.000-0.034) ng/mL Total Protein (6.3-8.2) g/dL Albumin (3.5-5.0) g/dL - NIH Stroke Scale 1a. Level of Consciousness: (0) alert 1b. LOC Questions: (0) answers correctly 1c. LOC Commands: (0) performs tasks correctly 2. Best Gaze: (0) normal 3. Visual: (0) no visual loss 4. Facial Palsy: (0) normal symmetrical movement 5a. Motor Arm Left: (0) no drift 5b. Motor Arm Right: (0) no drift 6a. Motor Leg Left: (0) no drift 6b. Motor Leg Right: (0) no drift 7. Limb Ataxia: (0) absent 8. Sensory: (0) normal 9. Best Language: (0) no aphasia 10. Dysarthria: (0) normal 11. Extinction/Inattention: (0) no abnormality - Thrombolytic Inclusion/Exclusion Thrombolytic Exclusion Criteria: Symptom Onset > 4.5 Hours - Medical Decision Making No focal deficits. Patient NIH 0. VF intact. Vision intact grossly IOP 22 OD, OS OU. Patient has normal pupil responses. CT (-). EKG no acute changes. CXR clear. pt will be admitted for MRI/ophthalmology consultation. Dr Calhoun is agreeable to care plan and admission. Past Medical History Past Medical History: CVA/TIA, Diabetes Mellitus, Hyperlipidemia, Hypertension Additional Past Medical History / Comment(s): carotid artery atherosclerosis. psoriasis History of Any Multi-Drug Resistant Organisms: None Reported Past Surgical History: No Surgical Hx Reported Additional Past Surgical History / Comment(s): carotid artery plaque clean out Past Anesthesia/Blood Transfusion Reactions: No Reported Reaction Past Psychological History: No Psychological Hx Reported Smoking Status: Current every day smoker Past Alcohol Use History: Rare Past Drug Use History: None Reported - Past Family History Mother Family Medical History: Diabetes Mellitus Course Vital Signs 04/13/20 04/13/20 04/13/20 10:30 12:41 13:35 Temperature 99.5 F 97.9 F 97.4 F L Pulse Rate 89 70 67 Respiratory 18 14 18 Rate Blood Pressure 156/72 147/64 159/74 O2 Sat by Pulse 97 95 94 L Oximetry Disposition Clinical Impression: Vision changes, Dizziness Disposition: ADMITTED IP TO THIS HOSP Condition: Stable Additional Instructions: s. Is patient prescribed a controlled substance at d/c from ED?: No Referrals: Hung Hwang MD [Primary Care Provider] - 1-2 days Time of Disposition: 13:26 Decision to Admit Reason: Admit from EC Decision Date: 04/13/20 Decision Time: 13:26
[2020-04-13] MEDS ORDERED: NALOXONE 0.4 MG/ML 1 ML VIAL IV PRN (13:26)
[2020-04-13] MEDS: SODIUM CHLORIDE 0.9% 1,000 ML IV SCH (13:58)
[2020-04-13] MEDS ORDERED: ALBUTEROL NEBULIZED 2.5 MG/3 ML INHALATION PRN (14:55)
[2020-04-13] MEDS ORDERED: ASPIRIN 81 MG PO STA (14:57)
[2020-04-13 17:47] VITALS: RESP 16
[2020-04-13] MEDS: INSULIN ASPART (NovoLOG) 100 UNIT/ML VIAL SQ SCH (18:03)
[2020-04-13] MEDS: metFORMIN 500 MG TAB PO SCH (18:08)
--- NOTE | 2020-04-13 18:27 | P.HPIM ---
History of Present Illness this is a pleasant 55 years old male with past medical history of diabetes mellitus, hypertension, hyperlipidemia.He is a patient of Dr. Hwang. He presents because of dizziness and blurred vision of one-day duration. Patient describes his dizziness as disequilibrium and nonspecific. However he denies double vision, normocephalic this patient, no weakness or numbness. No diarrhea, no change in urine or bowel habits. No fever or vomiting. Patient was recently diagnosed with diabetes mellitus by his PCP and was started on metformin 500 mg twice daily, he has a glucometer checks his sugar at home. He smokes 5-6 cigarettes a day, patient is counseled and he agrees to quit however he declines nicotine patch. He denies alcohol or illicit drugs. vitals are unremarkable and looks stable. labs including CBC, INR, BMP, liver e nzymes are unremarkable except for elevated glucose of 345, troponin is negative with 0.021 carotid duplex on 03/17/20 showing 50-69% stenosis of the right internal carotid artery with no stenosis on the left also CT of the brain showing no acute process. EKG showing normal sinus rhythm at [address]-T changes and QTC 444 chest x-ray: No acute process per Radiologist in the emergency room he received 500 mL of normal sling bolus and continued on normal sinus 75 mL/h Neurology and ophthalmology consult were placed and emergency room Review of Systems CONSTITUTIONAL: No fever, no malaise, no fatigue. HEENT: No recent visual problems or hearing problems. Denied any sore throat. CARDIOVASCULAR: No orthopnea, PND, no palpitations, no syncope. PULMONARY: No shortness of breath, no cough, no hemoptysis. GASTROINTESTINAL: No diarrhea, no nausea, no vomiting, no abdominal pain. Normoactive bowel sounds. NEUROLOGICAL: No headaches, no weakness, no numbness. HEMATOLOGICAL: Denies any bleeding or petechiae. GENITOURINARY: Denies any burning micturition, frequency, or urgency. MUSCULOSKELETAL/RHEUMATOLOGICAL: Denies any joint pain, swelling, or any muscle pain. ENDOCRINE: Denies any polyuria or polydipsia. Past Medical History Past Medical History: CVA/TIA, Diabetes Mellitus, Hyperlipidemia, Hypertension Additional Past Medical History / Comment(s): carotid artery atherosclerosis. psoriasis History of Any Multi-Drug Resistant Organisms: None Reported Past Surgical History: No Surgical Hx Reported Additional Past Surgical History / Comment(s): carotid artery plaque clean out Past Anesthesia/Blood Transfusion Reactions: No Reported Reaction Past Psychological History: No Psychological Hx Reported Smoking Status: Current every day smoker Past Alcohol Use History: Rare Past Drug Use History: None Reported - Past Family History Mother Family Medical History: Diabetes Mellitus Medications and Allergies Home Medications Medication Instructions Recorded Confirmed Type metFORMIN HCL [Glucophage] 500 mg PO BID 01/30/19 04/13/20 History Albuterol Sulfate [Albuterol 1 - 2 puff PO RT-Q4H PRN 04/13/20 04/13/20 History Sulfate Hfa] Atorvastatin Calcium [Lipitor] 40 mg PO HS 04/13/20 04/13/20 History amLODIPine [Norvasc] 5 mg PO DAILY 04/13/20 04/13/20 History lisinopriL [Zestril] 10 mg PO DAILY 04/13/20 04/13/20 History Allergies Allergy/AdvReac Type Severity Reaction Status Date / Time shellfish derived [Shellfish] Allergy Severe Rash/Hives Verified 04/13/20 12:31 sulfamethoxazole AdvReac Severe Blistering Verified 04/13/20 12:31 [From Bactrim] all over body (not hives) trimethoprim [From Bactrim] AdvReac Severe Blistering Verified 04/13/20 12:31 all over body (not hives) monosodium glutamate [MSG] AdvReac Nausea & Verified 04/13/20 12:31 Vomiting Physical Exam Vitals: Vital Signs Temp Pulse Resp BP Pulse Ox 04/13/20 13:35 97.4 F L 67 18 159/74 94 L 04/13/20 12:41 97.9 F 70 14 147/64 95 04/13/20 10:30 99.5 F 89 18 156/72 97 Intake and Output 04/12/20 04/13/20 04/13/20 22:59 06:59 14:59 Other: Weight 117.934 kg -GENERAL: The patient is alert and oriented x3, not in any acute distress. Obese HEENT: Pupils are round and equally reacting to light. EOMI. No scleral icterus. No conjunctival pallor. Normocephalic, atraumatic. No pharyngeal erythema. No thyromegaly. CARDIOVASCULAR: S1 and S2 present. No murmurs, rubs, or gallops. PULMONARY: Chest is clear to auscultation, no wheezing or crackles. ABDOMEN: Soft, nontender, nondistended, normoactive bowel sounds. No palpable organomegaly. MUSCULOSKELETAL: No joint swelling or deformity. EXTREMITIES: No cyanosis, clubbing, or pedal edema. NEUROLOGICAL: Gross neurological examination did not reveal any focal deficits. SKIN: No rashes. No petechiae Results CBC & Chem 7: 04/13/20 11:05 04/13/20 11:05 Labs: Abnormal Lab Results - Last 24 Hours (Table) 04/13/20 04/13/20 Range/Units 11: 11:05 Plt Count 120 L (150-450) k/uL Neutrophils # 7.9 H (1.3-7.7) k/uL Lymphocytes # 0.5 L (1.0-4.8) k/uL Sodium 136 L (137-145) mmol/L BUN 22 H (9-20) mg/dL Glucose 345 H (74-99) mg/dL Alkaline Phosphatase 37 L (38-126) U/L Total Protein 6.0 L (6.3-8.2) g/dL Assessment and Plan Assessment: dizziness, most likely due to uncontrolled diabetes. rule out neurological disease, stroke felt less likely Blurred vision, most likely due to uncontrolled diabetes, rule out ophthalmological disease Right internal carotid artery stenosis of 50-69% diabetes mellitus with hyperglycemia Hypertension Hyperlipidemia Morbid obesity with BMI of 37.3 Plan: this is a pleasant 55 years old male who presents with dizziness and blurred vision, most likely secondary to uncontrolled diabetes.we will continue with his metformin and increased the dose to 1000 mg twice daily from home dose of 500 mg twice daily. Check hemoglobin A1c. Continue with antihypertensive. Continue withIV fluids. Also will give 1 dose of aspirin, and continue with insulin sliding scale Follow-up recommendation by neurologist, associate editor. Consult vascular surgery Labs and medication were reviewed.. Continue same treatment. Continue with symptomatic treatment. Resume home medication. Monitor lytes and vitals. DVT and GI prophylaxis. Further recommendations depends on the clinical course of the patient DVT prophylaxis: Subcutaneous heparin GI Prophylaxis: Pepcid
[2020-04-13] MEDS ORDERED: metFORMIN 500 MG TAB PO SCH (21:00)
[2020-04-13] MEDS ORDERED: ATORVASTATIN 40 MG TAB PO SCH (21:00)
[2020-04-14] MEDS: SODIUM CHLORIDE 0.9% 1,000 ML IV SCH (03:12)
[2020-04-14 06:34] LABS: Glucose,Whole Blood 118 mg/dL (75-99)
[2020-04-14] MEDS: INSULIN ASPART (NovoLOG) 100 UNIT/ML VIAL SQ SCH ×2 (06:34→12:28)
[2020-04-14 08:14] VITALS: BP 156/74; PULSE 156; TEMP 97.5
[2020-04-14] MEDS ORDERED: amLODIPine 5 MG TAB PO SCH (09:00)
[2020-04-14] MEDS ORDERED: lisinopriL 10 MG TAB PO SCH (09:00)
--- NOTE | 2020-04-14 10:30 | P.GSCN ---
History of Present Illness Consult date: 04/14/20 Reason for Consult: Carotid stenosis Requesting physician: Albert E Sheet History of present illness: This is a pleasant 55 years old male with past medical history of hypertension, hyperlipidemia, and a recent diagnosis of diabetes mellitus approximately 6 months ago, who is a patient of Dr. Hwang. He presented to the emergency department because of dizziness and blurred vision that started Monday around 7 PM. Patient describes his dizziness as feeling off balanced, he did not fall. He denies feeling any upper or lower extremity weakness, numbness, slurred speech, or difficulty swallowing. No diarrhea, no change in urine or bowel habits. No fever or vomiting. The patient is denying any current symptoms at this time. He denies feeling dizzy or off balance, visual changes, weakness, shortness of breath or chest pain. Patient was recently diagnosed with diabetes mellitus by his PCP approximately 6 months ago and was started on metformin 500 mg twice daily, he has a glucometer checks his sugar at home he states right around 170s. He is a current smoker and admits to smoking 5-6 cigarettes a day. He denies alcohol or illicit drugs. He is currently using Chantix to help with smoking cessation. His vitals are unremarkable and looks stable. Labs including CBC, INR, BMP, liver enzymes are unremarkable except for elevated glucose of 345, troponin is negative with 0.021 He had an outpatient carotid duplex on 03/17/20 showing 50-69% stenosis of the right internal carotid artery with no stenosis on the left as a regular screening. He has a history of a left carotid endarterectomy with patch angio plasty that was [place] [address] Nash. The patient states at that time he did suffer a stroke prior to the carotid endarterectomy. He underwent a CT of the brain showing no acute process. EKG showing normal sinus rhythm at [address]-T changes and QTC 444 chest x-ray: No acute process per Radiologist Neurology and ophthalmology consult were placed Review of Systems A 14 point review of systems was completed all pertinent positives and negatives as stated in the HPI Past Medical History Past Medical History: CVA/TIA, Diabetes Mellitus, Hyperlipidemia, Hypertension Additional Past Medical History / Comment(s): carotid artery atherosclerosis. psoriasis History of Any Multi-Drug Resistant Organisms: None Reported Past Surgical History: No Surgical Hx Reported Additional Past Surgical History / Comment(s): carotid artery plaque clean out Past Anesthesia/Blood Transfusion Reactions: No Reported Reaction Past Psychological History: No Psychological Hx Reported Smoking Status: Current every day smoker Past Alcohol Use History: Rare Past Drug Use History: None Reported - Past Family History Mother Family Medical History: Diabetes Mellitus Medications and Allergies Home Medications Medication Instructions Recorded Confirmed Type metFORMIN HCL [Glucophage] 500 mg PO BID 01/30/19 04/13/20 History Albuterol Sulfate [Albuterol 1 - 2 puff PO RT-Q4H PRN 04/13/20 04/13/20 History Sulfate Hfa] Atorvastatin Calcium [Lipitor] 40 mg PO HS 04/13/20 04/13/20 History amLODIPine [Norvasc] 5 mg PO DAILY 04/13/20 04/13/20 History lisinopriL [Zestril] 10 mg PO DAILY 04/13/20 04/13/20 History Allergies Allergy/AdvReac Type Severity Reaction Status Date / Time shellfish derived [Shellfish] Allergy Severe Rash/Hives Verified 04/13/20 12:31 sulfamethoxazole AdvReac Severe Blistering Verified 04/13/20 12:31 [From Bactrim] all over body (not hives) trimethoprim [From Bactrim] AdvReac Severe Blistering Verified 04/13/20 12:31 all over body (not hives) monosodium glutamate [MSG] AdvReac Nausea & Verified 04/13/20 12:31 Vomiting Surgical - Exam Vital Signs Temp Pulse Resp BP Pulse Ox 99.5 F 89 18 156/72 97 04/13/20 10:30 04/13/20 10:30 04/13/20 10:30 04/13/20 10:30 04/13/20 10:30 General appearance: The patient is alert, oriented, in no acute distress. Obese. HET: Head is normocephalic and atraumatic. Pupils are equal and reactive. EOM intact. Oropharynx is clear without lesions. Neck: Supple without lymphadenopathy. Trachea midline. Carotid bruit noted on the right, no bruit heard on the left side of neck. Heart: S1 S2. Regular rate and rhythm. Lungs: Equal air entry clear to auscultation with mild bilateral expiratory wheezes. Abdomen: Soft, obese, nontender, nondistended with bowel sounds. No peritoneal signs. No palpable organomegaly or masses. Extremities: Normal skin color and turgor. No cyanosis, rash, ulceration, clubbing, or edema. Radial and pedal pulses are 2/4 bilaterally. Neurological: No focal deficits. Strength and sensation are grossly intact. He is alert and oriented 3. Patient has facial symmetry, speech is fluent, and tongue protrudes midline. Results CAT scan of the brain shows age-related atrophic and small vessel ischemic changes without any acute process Carotid ultrasound done on 03/17/2020 shows 50-69% stenosis of the right internal carotid artery with no significant stenosis in the left internal carotid artery - Labs 04/13/20 11:05 04/13/20 11:05 Abnormal Lab Results - Last 24 Hours (Table) 04/13/20 04/13/20 04/14/20 Range/Units 11:05 11:05 06:33 Plt Count 120 L (150-450) k/uL Neutrophils # 7.9 H (1.3-7.7) k/uL Lymphocytes # 0.5 L (1.0-4.8) k/uL Sodium 136 L (137-145) mmol/L BUN 22 H (9-20) mg/dL Glucose 345 H (74-99) mg/dL POC Glucose (mg/dL) 118 H (75-99) mg/dL Alkaline Phosphatase 37 L (38-126) U/L Total Protein 6.0 L (6.3-8.2) g/dL Diabetes panel 04/13/20 Range/Units 11:05 Sodium 136 L (137-145) mmol/L Potassium 4.6 (3.5-5.1) mmol/L Chloride 105 (98-107) mmol/L Carbon Dioxide 26 (22-30) mmol/L BUN 22 H (9-20) mg/dL Creatinine 0.88 (0.66-1.25) mg/dL Glucose 345 H (74-99) mg/dL Calcium 9.1 (8.4-10.2) mg/dL AST 18 (17-59) U/L ALT 33 (4-49) U/L Alkaline Phosphatase 37 L (38-126) U/L Total Protein 6.0 L (6.3-8.2) g/dL Albumin 4.1 (3.5-5.0) g/dL Calcium panel 11/23/20 Range/Units 11:05 Calcium 9.1 (8.4-10.2) mg/dL Albumin 4.1 (3.5-5.0) g/dL Pituitary panel 04/13/20 Range/Units 11:05 Sodium 136 L (137-145) mmol/L Potassium 4.6 (3.5-5.1) mmol/L Chloride 105 (98-107) mmol/L Carbon Dioxide 26 (22-30) mmol/L BUN 22 H (9-20) mg/dL Creatinine 0.88 (0.66-1.25) mg/dL Glucose 345 H (74-99) mg/dL Calcium 9.1 (8.4-10.2) mg/dL Adrenal panel 04/13/20 Range/Units 11:05 Sodium 136 L (137-145) mmol/L Potassium 4.6 (3.5-5.1) mmol/L Chloride 105 (98-107) mmol/L Carbon Dioxide 26 (22-30) mmol/L BUN 22 H (9-20) mg/dL Creatinine 0.88 (0.66-1.25) mg/dL Glucose 345 H (74-99) mg/dL Calcium 9.1 (8.4-10.2) mg/dL Total Bilirubin 0.5 (0.2-1.3) mg/dL AST 18 (17-59) U/L ALT 33 (4-49) U/L Alkaline Phosphatase 37 L (38-126) U/L Total Protein 6.0 L (6.3-8.2) g/dL Albumin 4.1 (3.5-5.0) g/dL Assessment and Plan Assessment: 1. Carotid stenosis, 50-69% right ICA stenosis based on carotid ultrasound 2. Dizziness 3. Visual changes 4. Diabetes mellitus 5. Hypertension 6. Hyperlipidemia Plan: Agree with neurology and ophthalmology consult. At this time there is no indication for acute vascular surgical intervention. Continue with a atorvastatin 40 mg daily, will discuss adding aspirin and/or Plavix. Recommend follow-up as an outpatient with repeat carotid ultrasound. Further recommendations to follow. Thank you for this consultation allowing us take part in the plan of care of your patient during his hospital stay. The impression and plan of care has been dictated as directed. I performed a history and examination of this patient, discussed the same with the dictator. I agree with the dictator's note ,documented as a scribe. Any additional findings or plans will be noted.
[2020-04-14] MEDS: metFORMIN 500 MG TAB PO SCH (11:00)
[2020-04-14] MEDS ORDERED: ASPIRIN 81 MG PO SCH (11:15)
[2020-04-14 12:10] LABS: Glucose,Whole Blood 135 mg/dL (75-99)
--- NOTE | 2020-04-14 12:28 | P.CNNES ---
History of Present Illness Consult date: 04/14/20 Requesting physician: Vilma Hodge Reason for Consult: dizziness and vision change History of Present Illness: This is a 55-year-old gentleman with medical history of stroke (6 years ago per patient, which had right sided weakness that resolved about coupled day) without residual, symptomatic left carotid (80% in 2016 per CTA) s/p endarectomy by Dr. Nash 04/11/2016, asysmptomatic right carotid artery stenosis, psoriasis diabetes, hypertension, hyperlipidemia presented emergency department on 04/13/2020 for vision change at 7pm this past Monday (04/12/20) while watching TV. The vision appeared pixated and slightly blurred bilaterally. Denies any diplopia. Patient feels like she is dizzy. Patient denies nausea or vomiting. Denies any focal weakness. He also felt his gait was unsteady. He denies any sensory loss. On presentation to the hospital his blood sugar was 345 serum. He said after he received Insulin his symptoms resolved within 4 hours after being in the hospital. He denies any further episodes of his symptoms. At home he is on the Lipitor 40 mg daily and Aspirin 81mg daily. He does not follow-up with a neurologist. He smokes 1 pack per day for years but stated recently he has cut down to 5 cigarettes daily. He is on Chantix. Work-up in the hospital consisted of: CT of the head was reported as age-related atrophic and chronic small vessel ischemic change without acute intracranial process seen at this time. EKG is reported as normal sinus rhythm. Left ventricular hypertrophy with repolarization abnormality. Abnormal EKG. On presentation the patient's glucose was 345. Vascular surgery evaluated the patient and no intervention and follow-up as outpatient. Note: The patient had a carotid duplex on 03/17/2020 and is reported that 50-69% stenosis of the right proximal internal carotid artery. No hemodynamically significant stenosis on the left. Last lipid profile was in 2016 and it shows LDL of 129. Patient had MRI of the brain on 04/13/2016 and it was reported as there are scattered hyperintensity at the level of the left frontal and parietal gyri on inversion recovery and T2 weighted sequence, corresponding the restricted diffusion is noted that. There is a large amount of motion on that the exam. No hydrocephalus or hemorrhage is evident. There is no midline shift. And in the impression was reported as finding compatible with the patient history, may be due to embolic phenomena within the distribution of the left internal carotid artery. There is motion on the exam. Review of Systems Review of system: The 12 point system was reviewed and apparent positive and negative per HPI. Past Medical History Past Medical History: CVA/TIA, Diabetes Mellitus, Hyperlipidemia, Hypertension Additional Past Medical History / Comment(s): carotid artery atherosclerosis. psoriasis History of Any Multi-Drug Resistant Organisms: None Reported Past Surgical History: No Surgical Hx Reported Additional Past Surgical History / Comment(s): carotid artery plaque clean out Past Anesthesia/Blood Transfusion Reactions: No Reported Reaction Past Psychological History: No Psychological Hx Reported Smoking Status: Current every day smoker Past Alcohol Use History: Rare Past Drug Use History: None Reported - Past Family History Mother Family Medical History: Diabetes Mellitus Medications and Allergies Home Medications Medication Instructions Recorded Confirmed Type Albuterol Sulfate [Albuterol 1 - 2 puff PO RT-Q4H PRN 04/13/20 04/13/20 History Sulfate Hfa] amLODIPine [Norvasc] 5 mg PO DAILY 04/13/20 04/13/20 History lisinopriL [Zestril] 10 mg PO DAILY 04/13/20 04/13/20 History Aspirin 81 mg PO DAILY #30 chew 04/14/20 Rx Atorvastatin [Lipitor] 80 mg PO DAILY #30 tab 04/14/20 Rx Clopidogrel [Plavix] 75 mg PO DAILY #30 tab 04/14/20 Rx metFORMIN HCL [Glucophage] 850 mg PO BID #60 tab 04/14/20 Rx Allergies Allergy/AdvReac Type Severity Reaction Status Date / Time shellfish derived [Shellfish] Allergy Severe Rash/Hives Verified 04/13/20 12:31 sulfamethoxazole AdvReac Severe Blistering Verified 04/13/20 12:31 [From Bactrim] all over body (not hives) trimethoprim [From Bactrim] AdvReac Severe Blistering Verified 04/13/20 12:31 all over body (not hives) monosodium glutamate [MSG] AdvReac Nausea & Verified 04/13/20 12:31 Vomiting Physical Examination - Vital Signs Vital Signs: Vital Signs Temp Pulse Pulse Pulse Pulse Pulse Resp 04/14/20 08:00 97.5 F L 156 H 16 04/14/20 04:00 97.7 F 66 04/13/20 19:30 97.1 F L 69 04/13/20 18:42 70 75 65 04/13/20 17:35 98 F 69 16 04/13/20 17:26 97.4 F L 67 18 04/13/20 13:35 97.4 F L 67 18 04/13/20 12:41 97.9 F 70 14 BP BP BP BP BP Pulse Ox 04/14/20 08:00 156/74 96 04/14/20 04:00 181/103 94 L 04/13/20 19:30 170/80 94 L 04/13/20 18:42 183/77 191/81 181/72 04/13/20 17:35 165/76 95 04/13/20 17:26 159/74 94 L 04/13/20 13:35 159/74 94 L 04/13/20 12:41 147/64 95 Intake and Output 04/13/20 04/14/20 04/14/20 22:59 06:59 14:59 Output Total 300 600 Balance -300 -600 Output: Urine 300 600 Other: Voiding Method Toilet Toilet Toilet # Voids 1 0 Weight 117.934 kg 119.54 kg GENERAL: The patient is lying in bed and is not in acute distress. CHEST: The heart rate is regular rate rhythm. No murmurs to auscultation. Positive carotid bruit over the right otherwise no bruit over the left. LUNG: Clear to auscultation bilaterally no wheezing noted throughout. Not labored breathing. ABDOMEN/GI: Bowel sounds present in all 4 quadrants. No tenderness to palpation throughout. NEUROLOGICAL: Higher mental function: The patient is awake, alert, oriented to self, place and time. Patient is following commands. No aphasia and no neglect. Cranial nerves: The pupils are round, equal and reactive to light and accommodation. Visual barcenas are full to confrontation throughout. Extraocular movement is intact no nystagmus is noted. Facial sensation is normal to touch throughout. The facial strength is normal throughout. Hearing is normal bilaterally to hand rub. Tongue is midline and moved [id number] without any difficulty. No dysarthria is noted. Shoulder shrug is normal bilaterally. Motor: Gait is normal with normal arm swings. The strength is 5 over 5 th roughout. Normal tone and bulk. Cerebellum: Normal finger to nose bilaterally. Sensation: Sensation is normal to touch throughout. Reflexes (right/left): 2+ throughout. Plantars are downgoing bilaterally. Results Ablation study: PT of 9.6, INR 0.9, PTT of 22.8. Rotavirus PCR is nondetected. - Laboratory Findings CBC and BMP: 04/13/20 11:05 04/13/20 11:05 Abnormal Lab Findings: Abnormal Labs 04/13/20 04/13/20 04/14/20 11:05 11:05 06:33 Plt Count 120 L Neutrophils # 7.9 H Lymphocytes # 0.5 L Sodium 136 L BUN 22 H Glucose 345 H POC Glucose (mg/dL) 118 H Alkaline Phosphatase 37 L Total Protein 6.0 L Assessment and Plan Assessment: This is a 55-year-old gentleman with multiple medical problems resented emergency department on 04/13/2020 for vision change out of both eyes the last 1 6 hours prior to presentation. Her glucose serum on presentation was in 300's. Transient episode of Visual disturbance and feeling unsteady walking: Seems due to uncontrolled diabetes. Cannot rule out TIA. Hx of stroke of right sided weakness (6 years ago) without residual per patient. Hx of symptomatic left carotid stenosis s/p endarectomy s/p endarectomy by Dr. Nash 04/11/2016. Asymptomatic right carotid artery stenosis Uncontrolled Diabetes mellitus Hypertension Hyperlipidemia Tobacco use Plan: Ophthalmology was consulted. I notified the patient to add that the cannot exclude a transient ischemic attack in that I want to get the a stroke workup, he stated that he wanted to get the workup as an outpatient especially that he wanted to be with his family. I notified that I would like to get MRI of the brain, lipid profile, 2-D echo, TSH. I will restart the patient on his home dose of aspirin and I will place him also on Plavix in addition and firm to be on dual antiplatelets because of the carotid stenosis. Patient is on the home dose of Lipitor 40 mg all increase said that to 80 mg daily especially with the carotid stenosis. HbA1c is ordered by the primary team and it's pending. She was notified the that he is to follow-up with a neurologist as an outpatient within 1-2 weeks. He was notified if he has any further episodes he needs come back to the hospital emergently. He also needs to follow-up with the vascular surgery team regarding his right asymptomatic carotid stenosis. Thank you for the consultation. Jordan Rock M.D. Neuro-hospitalist Time with Patient: Greater than 30
[2020-04-14] MEDS ORDERED: CLOPIDOGREL 75 MG TAB PO SCH (12:45)
[2020-04-14] MEDS ORDERED: ATORVASTATIN 80 MG TAB PO SCH (12:45)
[2020-04-14 15:13] LABS: Hemoglobin A1C 7.2 % (4.0-6.0)
--- NOTE | 2020-04-14 23:26 | P.DS ---
Providers Date of admission: 04/13/20 14:36 Attending physician: Sun Kamara Consults: 04/13/20 13:26 Consult Physician Routine Consulting Provider: Peter Wallis Consult Reason/Comments: vision changes, diabetic Do you want consulting provider notified?: Yes 04/13/20 13:27 Consult Physician Routine Consulting Provider: Jordan Rock Consult Reason/Comments: vision changes, dizziness hx of CVA Do you want consulting provider notified?: Yes 04/13/20 14:50 Consult Physician Urgent Consulting Provider: Jordyn Cagle Consult Reason/Comments: right ICA stensis Do you want consulting provider notified?: Yes Primary care physician: Hung Hwang Hospital Course: Diagnoses: dizziness, most likely due to uncontrolled diabetes. Completely resolved upon discharge Blurred vision, most likely due to uncontrolled diabetes, completely resolved upon discharge Right internal carotid artery stenosis of 50-69%. Follow-up as an outpatient per vascular surgery diabetes mellitus with hyperglycemia Hypertension Hyperlipidemia Morbid obesity with BMI of 37.3 Hospital course: this is a pleasant 55 years old male with past medical history of diabetes mellitus, hypertension, hyperlipidemia.He is a patient of Dr. Hwang. He presents because of dizziness and blurred vision of one-day duration. Patient describes his dizziness as disequilibrium and nonspecific. However he denies double vision, but his vision was blurry. No weakness or numbness. On admission he had high glucose of 345. Labs were unremarkable. Orthostatic changes were negative. Patient was recently diagnosed with diabetes and he was started on metformin 500 mg twice daily. His hemoglobin A1c is elevated at 7.2%. Patient initially was admitted with IV fluids with normal saline and his metformin was increased to 1000 mg twice daily, his sugar this morning was 118, because of concerns for future hypoglycemia with lower the dose upon discharge to 850 mg twice daily and patient agrees, patient was counseled extensively about the signs and symptoms of hypoglycemia and how to manage it, also he was instructed to monitor his sugar 4 times a day before each meal and at bedtime and to call 911 on come to emergency room if he develops symptoms or if his sugar drops less than 90 or more than 400 and he verbalized understanding and acceptance. Patient has glucometer at home Because of concerns for stroke, neurology evaluation was obtained. CT of the brain was negative. MRI of the brain is recommended by the neurologist but since the patient's symptoms improved he declined to do MRI and he wants to follow up as an outpatient and distended. Because of that the neurologist started him on aspirin and Plavix and increase his Lipitor from 40 to 80 mg. Risks with bleeding is explained extensively to the patient with aspirin and Plavix and he verbalized understanding and acceptance and also patient declined to wait for perinatal tech to see him in house and he wants to follow up with him as an outpatient. At the same time the perinatal tech was hesitant to come and see the patient in the hospital because of covid pandemic and he wants to see him in the office and appointment is made for the patient in 1 week and he agrees Vascular surgeon evaluated the patient for right ICA stenosis with recommendation for outpatient follow-up. Patient informed and he agrees. On the day of discharge patient remains asymptomatic, no chest pain or dyspnea, no weakness or numbness. Dizziness and blurred vision or completely resolved and patient confirms that he can't read discussed on the TV easily as before. No other symptoms, no change in urine or bowel habits. No fever. Patient states that he is back to normal sounds and he wants to go home Patient was cleared for discharge by neurology and vascular surgery services team patient will be discharged on aspirin, Plavix, 80 mg of Lipitor Problems and management plan were discussed with the patient and he verbalized understanding and acceptance Patient was found stable and can be discharged home however he needs follow-up as an outpatient. Patient was instructed to follow up with PCP within one week and patient agrees Patient agrees with appointment made for him with Dr. Hwang on 04/17, neurologist Dr. Chu on 04/22, perinatal tech Dr. Wallis on 04/[address] kay on 05/26/2020 and states he will follow-up Gen: patient is a AAOx3, no distress CVS: S1-S2, RRR, no murmur Lungs: B/L CTA, no wheezing Abdomen: soft, no distention, no tenderness, positive bowel sounds Extremity: no leg edema or induration Neuro: Cranial nerves are grossly intact. Strength is 5/5 in all extremity. Sensation is intact Time spent more than 35 minutes Patient Condition at Discharge: Stable Plan - Discharge Summary Discharge Rx Participant: No New Discharge Prescriptions: New Aspirin 81 mg PO DAILY #30 chew metFORMIN HCL [Glucophage] 850 mg PO BID #60 tab Atorvastatin [Lipitor] 80 mg PO DAILY #30 tab Clopidogrel [Plavix] 75 mg PO DAILY #30 tab Continue lisinopriL [Zestril] 10 mg PO DAILY amLODIPine [Norvasc] 5 mg PO DAILY Albuterol Sulfate [Albuterol Sulfate Hfa] 1 - 2 puff PO RT-Q4H PRN PRN Reason: Shortness Of Breath Discontinued metFORMIN HCL [Glucophage] 500 mg PO BID Atorvastatin Calcium [Lipitor] 40 mg PO HS Discharge Medication List Albuterol Sulfate [Albuterol Sulfate Hfa] 1 - 2 puff PO RT-Q4H PRN 04/13/20 [History] amLODIPine [Norvasc] 5 mg PO DAILY 04/13/20 [History] lisinopriL [Zestril] 10 mg PO DAILY 04/13/20 [History] Aspirin 81 mg PO DAILY #30 chew 04/14/20 [Rx] Atorvastatin [Lipitor] 80 mg PO DAILY #30 tab 04/14/20 [Rx] Clopidogrel [Plavix] 75 mg PO DAILY #30 tab 04/14/20 [Rx] metFORMIN HCL [Glucophage] 850 mg PO BID #60 tab 04/14/20 [Rx] Follow up Appointment(s)/Referral(s): Hung Hwang MD [Primary Care Provider] - 04/17/20 2:00 pm (Appt with Berny JOHNSON) Mamta Chu MD [REFERRING] - 04/22/20 11:30 am (neurologist ) Peter Wallis MD [STAFF PHYSICIAN] - 04/20/20 10:30 am Sourav Kay DO [STAFF PHYSICIAN] - 05/26/20 2:00 pm Patient Instructions/Handouts: Transient Ischemic Attack (DC), Hypoglycemia in a Person with Diabetes (DC), How to Check your Blood Sugar (DC), Type 2 Diabetes Management for Adults (DC) Activity/Diet/Wound Care/Special Instructions: Low carbohydrate diet, 1800 kcal per day Activity is restricted till you see your doctor. Discharge Disposition: HOME SELF-CARE
== END 2020-04-14 13:49 | disposition home or self-care (01) ==
LOC: EC 10:26 → 3SCARD 14:36 → 1SOBS 16:58
PROVIDERS: ADMIT Hospitalist; ATTEND Hospitalist
DX: H53.8 Other visual disturbances (principal); R42 Dizziness and giddiness; E11.65 Type 2 diabetes mellitus with hyperglycemia; I65.21 Occlusion and stenosis of right carotid artery; E78.5 Hyperlipidemia, unspecified; E66.01 Morbid (severe) obesity due to excess calories; R26.81 Unsteadiness on feet; L40.9 Psoriasis, unspecified; G31.9 Degenerative disease of nervous system, unspecified; F02.80 Dementia in other diseases classified elsewhere, unspecified severity, without behavioral disturbance, psychotic disturbance, mood disturbance, and anxiety; I67.82 Cerebral ischemia; I11.9 Hypertensive heart disease without heart failure; R94.31 Abnormal electrocardiogram [ECG] [EKG]; F17.210 Nicotine dependence, cigarettes, uncomplicated; Z20.828 Contact with and (suspected) exposure to other viral communicable diseases; Z86.73 Personal history of transient ischemic attack (TIA), and cerebral infarction without residual deficits; Z79.84 Long term (current) use of oral hypoglycemic drugs; Z79.899 Other long term (current) drug therapy; Z91.013 Allergy to seafood; Z88.2 Allergy status to sulfonamides; Z98.62 Peripheral vascular angioplasty status; Z91.02 Food additives allergy status; Z68.37 Body mass index [BMI] 37.0-37.9, adult; Z71.6 Tobacco abuse counseling; Z83.3 Family history of diabetes mellitus
CPT/HCPCS: 96360; 96361; 99285; 36415; 93005; 80053; 84484; 85025; 85610; 85730; 83036; 87635; 71046; 70450; G0378 ×3

== ENCOUNTER 2020-04-15 15:37 | Inpatient (IN) | payer BC ==
[2020-04-15] MEDS ORDERED: SODIUM CHLORIDE 0.9% 1,000 ML IV STA (15:44)
[2020-04-15 15:48] LABS: Glucose,Whole Blood 181 mg/dL (75-99)
[2020-04-15] MEDS: SODIUM CHLORIDE 0.9% 1,000 ML IV STA ×2 (16:17→19:05)
--- NOTE | 2020-04-15 16:20 | ED ---
Neuro HPI - General Chief Complaint: Neuro Symptoms/Deficit Stated Complaint: poss stroke Time Seen by Provider: 04/15/20 15:43 Source: patient, RN notes reviewed, old records reviewed Mode of arrival: ambulatory Limitations: no limitations - History of Present Illness Is the patient presenting with stroke symptoms?: No -: hour(s) Initial Comments: This is a 55-year-old male who presents to the emergency department for evaluation of recurrent neurological complaints symptoms weakness and malaise recent diagnosis of TIA patient presents with left-sided weakness and numbness. And numbness patient does not feel well feels weak but no headaches Location: left arm, left leg Place: home Severity: mild Quality: weak, tingling Improves With: none Worsens With: none On Anticoagulants: No Associated Symptoms: malaise, weakness Treatments Prior to Arrival: none - Related Data Home Medications: Home Medications Medication Instructions Recorded Confirmed Albuterol Sulfate [Albuterol 1 - 2 puff PO RT-Q4H PRN 04/13/20 04/15/20 Sulfate Hfa] amLODIPine [Norvasc] 5 mg PO DAILY 04/13/20 04/15/20 lisinopriL [Zestril] 10 mg PO DAILY 04/13/20 04/15/20 predniSONE [Deltasone] 20 mg PO DAILY 04/15/20 04/15/20 Previous Rx's Medication Instructions Recorded Aspirin 81 mg PO DAILY #30 chew 04/14/20 Atorvastatin [Lipitor] 80 mg PO DAILY #30 tab 04/14/20 Clopidogrel [Plavix] 75 mg PO DAILY #30 tab 04/14/20 metFORMIN HCL [Glucophage] 850 mg PO BID #60 tab 04/14/20 Allergies/Adverse Reactions: Allergies Allergy/AdvReac Type Severity Reaction Status Date / Time shellfish derived [Shellfish] Allergy Severe Rash/Hives Verified 04/15/20 17:10 sulfamethoxazole AdvReac Severe Blistering Verified 04/15/20 17:10 [From Bactrim] all over body (not hives) trimethoprim [From Bactrim] AdvReac Severe Blistering Verified 04/15/20 17:10 all over body (not hives) monosodium glutamate [MSG] AdvReac Nausea & Verified 04/15/20 17:10 Vomiting Review of Systems ROS Statement: Those systems with pertinent positive or pertinent negative responses have been documented in the HPI. ROS Other: All systems not noted in ROS Statement are negative. General Exam Limitations: no limitations General appearance: alert, in no apparent distress Head exam: Present: atraumatic, normocephalic, normal inspection Eye exam: Present: normal appearance, PERRL, EOMI. Absent: scleral icterus, conjunctival injection, periorbital swelling ENT exam: Present: normal exam, mucous membranes moist Neck exam: Present: normal inspection. Absent: tenderness, meningismus, lymphadenopathy Respiratory exam: Present: normal lung sounds bilaterally. Absent: respiratory distress, wheezes, rales, rhonchi, stridor Cardiovascular Exam: Present: regular rate, normal rhythm, normal heart sounds. Absent: systolic murmur, diastolic murmur, rubs, gallop, clicks GI/Abdominal exam: Present: soft, normal bowel sounds. Absent: distended, tenderness, guarding, rebound, rigid Extremities exam: Present: normal inspection, full ROM, normal capillary refill. Absent: tenderness, pedal edema, joint swelling, calf tenderness Back exam: Present: normal inspection Neurological exam: Present: alert, oriented X3, CN II-XII intact Psychiatric exam: Present: normal affect, normal mood Skin exam: Present: warm, dry, intact, normal color. Absent: rash Stroke MDM - Lab Data Result diagrams: 04/15/20 15:44 04/15/20 15:44 Lab Results 04/15/20 04/15/20 04/15/20 Range/Units 15:44 15:44 15:44 WBC 7.9 (3.8-10.6) k/uL RBC 5.30 (4.30-5.90) m/uL Hgb 17.4 (13.0-17.5) gm/dL Hct 49.5 (39.0-53.0) % MCV 93.5 (80.0-100.0) fL MCH 32.8 (25.0-35.0) pg MCHC 35.1 (31.0-37.0) g/dL RDW 13.2 (11.5-15.5) % Plt Count 124 L (150-450) k/uL MPV 7.3 Neutrophils % 75 % Lymphocytes % 15 % Monocytes % 6 % Eosinophils % 1 % Basophils % 1 % Neutrophils # 5.9 (1.3-7.7) k/uL Lymphocytes # 1.2 (1.0-4.8) k/uL Monocytes # 0.5 (0-1.0) k/uL Eosinophils # 0.1 (0-0.7) k/uL Basophils # 0.1 (0-0.2) k/uL PT 9.6 (9.0-12.0) sec INR 0.9 (<1.2) APTT 22.3 (22.0-30.0) sec Sodium 136 L (137-145) mmol/L Potassium 4.4 (3.5-5.1) mmol/L Chloride 103 (98-107) mmol/L Carbon Dioxide 27 (22-30) mmol/L Anion Gap 6 mmol/L BUN 15 (9-20) mg/dL Creatinine 0.70 (0.66-1.25) mg/dL Est GFR (CKD-EPI)AfAm >90 (>60 ml/min/1.73 sqM) Est GFR (CKD-EPI)NonAf >90 (>60 ml/min/1.73 sqM) Glucose 195 H (74-99) mg/dL POC Glucose (mg/dL) (75-99) mg/dL POC Glu Stock Clipper ID Calcium 9.5 (8.4-10.2) mg/dL Total Bilirubin 0.6 (0.2-1.3) mg/dL AST 23 (17-59) U/L ALT 37 (4-49) U/L Alkaline Phosphatase 34 L (38-126) U/L Troponin I (0.000-0.034) ng/mL Total Protein 6.6 (6.3-8.2) g/dL Albumin 4.4 (3.5-5.0) g/dL 04/15/20 04/15/20 Range/Units 15:44 15:47 WBC (3.8-10.6) k/uL RBC (4.30-5.90) m/uL Hgb (13.0-17.5) gm/dL Hct (39.0-53.0) % MCV (80.0-100.0) fL MCH (25.0-35.0) pg MCHC (31.0-37.0) g/dL RDW (11.5-15.5) % Plt Count (150-450) k/uL MPV Neutrophils % % Lymphocytes % % Monocytes % % Eosinophils % % Basophils % % Neutrophils # (1.3-7.7) k/uL Lymphocytes # (1.0-4.8) k/uL Monocytes # (0-1.0) k/uL Eosinophils # (0-0.7) k/uL Basophils # (0-0.2) k/uL PT (9.0-12.0) sec INR (<1.2) APTT (22.0-30.0) sec Sodium (137-145) mmol/L Potassium (3.5-5.1) mmol/L Chloride (98-107) mmol/L Carbon Dioxide (22-30) mmol/L Anion Gap mmol/L BUN (9-20) mg/dL Creatinine (0.66-1.25) mg/dL Est GFR (CKD-EPI)AfAm (>60 ml/min/1.73 sqM) Est GFR (CKD-EPI)NonAf (>60 ml/min/1.73 sqM) Glucose (74-99) mg/dL POC Glucose (mg/dL) 181 H (75-99) mg/dL POC Glu Stock Clipper Greta Self Calcium (8.4-10.2) mg/dL Total Bilirubin (0.2-1.3) mg/dL AST (17-59) U/L ALT (4-49) U/L Alkaline Phosphatase (38-126) U/L Troponin I 0.023 (0.000-0.034) ng/mL Total Protein (6.3-8.2) g/dL Albumin (3.5-5.0) g/dL - NIH Stroke Scale 1a. Level of Consciousness: (0) alert 1b. LOC Questions: (0) answers correctly 1c. LOC Commands: (0) performs tasks correctly 2. Best Gaze: (0) normal 3. Visual: (0) no visual loss 4. Facial Palsy: (0) normal symmetrical movement 5a. Motor Arm Left: (1) drift 5b. Motor Arm Right: (0) no drift 6a. Motor Leg Left: (1) drift 6b. Motor Leg Right: (0) no drift 7. Limb Ataxia: (0) absent 8. Sensory: (0) normal 9. Best Language: (0) no aphasia 10. Dysarthria: (0) normal 11. Extinction/Inattention: (0) no abnormality - Thrombolytic Inclusion/Exclusion Thrombolytic Inclusion Criteria: Symptom Onset < 4.5 h - Medical Decision Making 55-year-old male to the ER for evaluation patient presents today for evaluation of CVA symptoms left-sided weakness 90% ICA stenosis positive CVA will admit for neurology to reevaluate - Radiology Data Radiology results: report reviewed (CT brain and CTA shows 90% stenosis of the Right ICA), image reviewed - EKG Data -: EKG Interpreted by Me (EKG shows normal sinus rhythm 85 [place] 06/20/1928 QRS 104 QTc 440) Past Medical History Past Medical History: CVA/TIA, Diabetes Mellitus, Hyperlipidemia, Hypertension Additional Past Medical History / Comment(s): carotid artery atherosclerosis. psoriasis History of Any Multi-Drug Resistant Organisms: None Reported Past Surgical History: No Surgical Hx Reported Additional Past Surgical History / Comment(s): carotid artery plaque clean out Past Anesthesia/Blood Transfusion Reactions: No Reported Reaction Past Psychological History: No Psychological Hx Reported Smoking Status: Current every day smoker Past Alcohol Use History: Rare Past Drug Use History: None Reported - Past Family History Mother Family Medical History: Diabetes Mellitus Course Vital Signs 04/15/20 15:39 Temperature 98.9 F Pulse Rate 92 Respiratory 18 Rate Blood Pressure 166/88 O2 Sat by Pulse 98 Oximetry - Reevaluation(s) Reevaluation #1: 04/15/20 18:32 medical record Is reviewed Reevaluation #2: 04/15/20 18:36 Patient and family regarding findings, questions answered Critical Care Time Critical Care Time: Yes Total Critical Care Time: 31 Disposition Clinical Impression: Acute CVA (cerebrovascular accident) Disposition: ADMITTED IP TO THIS [facility] Condition: Fair Is patient prescribed a controlled substance at d/c from ED?: No Referrals: Hung Hwang MD [Primary Care Provider] - 1-2 days
[2020-04-15 16:30] LABS: Basophils # (A) 0.1 k/uL (0-0.2); Basophils % (A) 1 %; Eosinophils # (A) 0.1 k/uL (0-0.7); Eosinophils % (A) 1 %; HCT 49.5 % (39.0-53.0); HGB 17.4 gm/dL (13.0-17.5); Lymphocytes # (A) 1.2 k/uL (1.0-4.8); Lymphocytes % (A) 15 %; MCH 32.8 pg (25.0-35.0); MCHC 35.1 g/dL (31.0-37.0); MCV 93.5 fL (80.0-100.0); Mean Platelet Volume 7.3; Monocytes # (A) 0.5 k/uL (0-1.0); Monocytes % (A) 6 %; Neutrophils # (A) 5.9 k/uL (1.3-7.7); Neutrophils % (A) 75 %; Platelet Count 124 k/uL (150-450); RDW 13.2 % (11.5-15.5); WBC 7.9 k/uL (3.8-10.6)
[2020-04-15 16:39] LABS: INR 0.9 (<1.2); Partial Thromboplastin Time 22.3 sec (22.0-30.0); Prothrombin Time 9.6 sec (9.0-12.0)
[2020-04-15 16:40] LABS: ALT 37 U/L (4-49); AST 23 U/L (17-59); African American GFR (CKD) >90 (>60 ml/min/1.73 sqM); Albumin 4.4 g/dL (3.5-5.0); Alkaline Phosphatase 34 U/L (38-126); Anion Gap 6 mmol/L; Blood Urea Nitrogen 15 mg/dL (9-20); Calcium 9.5 mg/dL (8.4-10.2); Carbon Dioxide 27 mmol/L (22-30); Chloride 103 mmol/L (98-107); Glucose 195 mg/dL (74-99); Non-African American GFR(CKD) >90 (>60 ml/min/1.73 sqM); Potassium 4.4 mmol/L (3.5-5.1); Sodium 136 mmol/L (137-145); Total Bilirubin 0.6 mg/dL (0.2-1.3); Total Protein 6.6 g/dL (6.3-8.2)
--- NOTE | 2020-04-15 16:56 | CT ---
EXAMINATION TYPE: CT brain wo con for TPA DATE OF EXAM: 04/15/2020 COMPARISON: 04/13/2020 HISTORY: Weakness and uncoordination. CT DLP: 1136.8 mGycm Automated exposure control for dose reduction was used. There are poorly marginated 1.5 cm areas of white matter decreased density in the posterior frontal l obe bilaterally. There is no mass effect nor midline shift. There is no sign of intracranial hemorrha ge. There is also 1 cm hypodense area anterior left internal capsule. Ventricles have normal size. Ca lvarium is intact. IMPRESSION: White matter hypodensity in the posterior frontal lobes suggestive of acute infarcts. Small lacunar infarct anterior left internal capsule unchanged. No hemorrhage.
--- NOTE | 2020-04-15 17:33 | CT ---
EXAMINATION TYPE: CT angio head neck DATE OF EXAM: 04/15/2020 COMPARISON: None HISTORY: Weakness and uncoordination. CT DLP: 757.1 mGycm Automated exposure control for dose reduction was used. CONTRAST: Performed with IV Contrast, patient injected with 65 mL of Isovue 370. Images were obtained from the aortic arch to the vertex of the brain with IV contrast and 3-D post pr ocessed images. There is normal branching pattern of the great vessels on the aortic arch. There is bilateral arteria l flow in the subclavian arteries. There is arterial flow in both vertebral arteries. Left vertebral artery is larger than the right. There is arterial flow in the vertebrobasilar artery system. There i s arterial flow in the common internal and external carotid arteries bilaterally. There is significan t plaque formation at the right carotid artery bifurcation. There is subtotal occlusion of the origin of the right internal carotid artery. There is less than 25% stenosis at the origin of the left inte rnal carotid artery. There is no evidence of dissection. There is arterial flow in the anterior middle and posterior cerebral arteries bilaterally. There is n o mass effect. There is no evidence of intracranial aneurysm or neovascularity. I see no intracranial hemodynamic stenosis. IMPRESSION: No intracranial angiographic abnormality. There is more than 90% stenosis at the origin of the right internal carotid artery. There is less viktoriya n 25% stenosis origin of the left internal carotid artery.
[2020-04-15] MEDS ORDERED: ASPIRIN 325 MG TAB PO STA (18:29)
[2020-04-15] MEDS ORDERED: ATORVASTATIN 80 MG TAB PO STA (18:56)
[2020-04-15] MEDS: SODIUM CHLORIDE 0.9% 1,000 ML IV SCH (19:05)
[2020-04-15] MEDS ORDERED: HYDROcodone/APAP 5-325MG 1 EACH TAB PO PRN (19:29)
[2020-04-15] MEDS ORDERED: ALPRAZolam 0.25 MG TAB PO PRN (19:29)
[2020-04-15] MEDS ORDERED: LORazepam 2 MG/ML INJ IV STA (19:57)
[2020-04-15 21:13] LABS: Glucose,Whole Blood 150 mg/dL (75-99)
--- NOTE | 2020-04-15 21:19 | MR ---
EXAMINATION TYPE: MR brain wo/w con DATE OF EXAM: 04/15/2020 COMPARISON: HISTORY: Left sided weakness, acute stroke CONTRAST: Standard multiplanar, multisequence MRI departmental protocol utilizing 12 mL intravenous Gadavist ga dolinium contrast. On the diffusion images there are multiple punctate foci of increased signal in the white matter of t he left parietal lobe. Total number is approximately 10 and these measure up to 5 mm. These foci also involve to a lesser extent the cortex of the left parietal lobe. There is no mass effect nor midline shift. On the FLAIR images there are numerous abnormal foci of in creased signal in the white matter of both cerebral hemispheres. These are seen mostly around the lat eral ventricles and centrum semiovale. Lesions measure up to 10 mm. Total number is approximately 25. There is cortical 11 mm focus of increased signal right posterior temporal lobe on the FLAIR images. The brainstem is intact. Corpus callosum is intact. Sella turcica appears normal. IMPRESSION: Numerous white matter high signal foci which could relate to chronic small vessel ischemia or demyeli nating disease. Multiple punctate white and sánchez matter high signal foci on the diffusion images on the left cerebral hemisphere could be foci of multiple acute lacunar infarcts.
[2020-04-15] MEDS: INSULIN ASPART (NovoLOG) 100 UNIT/ML VIAL SQ SCH (22:30)
[2020-04-15] MEDS: HEPARIN SODIUM,PORCINE 5,000 UNIT/ML 1 ML VIAL SQ SCH (22:30)
--- NOTE | 2020-04-15 22:51 | HP ---
HISTORY AND PHYSICAL DATE OF SERVICE: 04/15/2020 CHIEF COMPLAINT: Weakness of the left side. HISTORY OF PRESENT ILLNESS: This 55-year-old gentleman with a past medical history of CVA, TIA, diabetes mellitus, hypertension, hyperlipidemia, history of carotid artery stenosis, being followed by Dr. Hung Hwang in the outpatient setting, was recently admitted with generalized weakness. Currently the patient is complaining of some weakness on the left upper limb. His reports there is not a full range of motion. The patient came to [facility] and was admitted for further evaluation and treatment. The CT scan of the brain showed a small lacunar infarct in the anterior left internal capsule as well as white matter hypodensity in the posterior frontal lobe suggestive of acute infarcts also. The CT angio showed 80% stenosis in the right carotid artery and 25% stenosis of the left internal carotid artery. The patient previously had a left internal carotid endarterectomy apparently. There is no history of any fever, rigor or chills. No history of headache, loss of consciousness, seizures at this time. PAST MEDICAL HISTORY: CVA, TIA, diabetes mellitus, hypertension, hyperlipidemia, carotid artery sclerosis, psoriasis. HOME MEDICATIONS: Deltasone, Glucophage, Zestril, Plavix, Lipitor, Norvasc, aspirin, Albuterol. ALLERGIES: SHELLFISH, BACTRIM, MSG. FAMILY HISTORY: History of diabetes mellitus in the family. SOCIAL HISTORY: History of smoking, ongoing. REVIEW OF SYSTEMS: ENT: No diminished hearing. No diminished vision. CARDIOVASCULAR SYSTEM: No angina, palpitations. RESPIRATORY SYSTEM: No cough, hemoptysis. GI: No nausea, vomiting. : No dysuria or retention. NERVOUS SYSTEM: As mentioned earlier. ALLERGY/IMMUNOLOGY: No asthma, hayfever. MUSCULOSKELETAL: As mentioned earlier. HEMATOLOGY/ONCOLOGY: No history of anemia. ENDOCRINE: History of diabetes mellitus. CONSTITUTIONAL: As mentioned earlier. DERMATOLOGY: Negative. RHEUMATOLOGY: Negative. PSYCHIATRY: As mentioned earlier. PHYSICAL EXAMINATION: Patient is alert and oriented x3. Pulse is 71, blood pressure 147/96, respiration 18, temperature 98.9, pulse ox 98% on room air. HEENT: Conjunctivae normal. Oral mucosa moist. NECK: No jugular venous distention. No carotid bruit. No lymph node enlargement. CARDIOVASCULAR SYSTEM: S1, S2 muffled. No S3. No S4. RESPIRATORY SYSTEM: Breath sounds diminished at the bases. No rhonchi. No crackles. ABDOMEN: Soft, obese, non-tender. No mass palpable. LEGS: No edema. No swelling. NERVOUS SYSTEM: Higher functions as mentioned earlier. Cranial nerves 2 through 12 grossly intact. Some minimal weakness of the left upper grade 4 power. Otherwise, grade 4+ on the left side. Reflexes are diminished. Gait not tested. No sensory abnormalities. No signs of cerebellar dysfunction. SKIN: No ulcer, rash, bleeding. JOINTS: No active deforming arthropathy. LYMPHATICS: No lymph node palpable in neck, axillae or groin. LABS/IMAGING: CT scan reviewed. WBC 7.9, platelets 124. Sodium 136. Glucose 195. ASSESSMENT: 1. Acute stroke of the right hemisphere causing left-sided weakness. 2. Right internal carotid artery stenosis, about 80%. 3. History of left internal carotid endarterectomy. 4. Thrombocytopenia. 5. Hyponatremia. 6. Diabetes mellitus, type 2. 7. Continued ongoing nicotine dependence. 8. History of cerebrovascular accident, transient ischemic attack. 9. Hypertension. 10.Hyperlipidemia. 11.History of psoriasis. 12.Obesity with a body mass index of 37.3. 13.FULL CODE. RECOMMENDATIONS AND DISCUSSION: In this 55-year-old gentleman who presented with multiple complex medical issues, we will monitor the patient closely, continue the current medications. I recommend antiplatelet agents. Consult Neurology. Neurovascular workup. Neuro checks. Vascular surgery consultation by Dr. Nash. Otherwise, I would also recommend MRI of the brain and permissive hypertension. Overall prognosis is extremely guarded because of multiple complex medical issues. Further recommendations to follow. Discussed with the patient and family at length, who understand and agree. A copy of this dictation is being forwarded to Dr. Hawng, who is the primary physician. MMODL / IJN: [id number] / MTDD
[2020-04-15] MEDS: metFORMIN 850 MG TAB PO SCH (23:55)
[2020-04-16] MEDS: SODIUM CHLORIDE 0.9% 1,000 ML IV SCH ×2 (04:48→23:41)
[2020-04-16 06:25] LABS: Glucose,Whole Blood 153 mg/dL (75-99)
[2020-04-16] MEDS: metFORMIN 850 MG TAB PO SCH ×2 (06:37→19:00)
[2020-04-16] MEDS: PANTOPRAZOLE 40 MG TABLET PO SCH (06:37)
[2020-04-16] MEDS: INSULIN ASPART (NovoLOG) 100 UNIT/ML VIAL SQ SCH ×4 (06:39→20:42)
[2020-04-16] MEDS: ALBUTEROL NEBULIZED 2.5 MG/3 ML INHALATION PRN (09:06)
[2020-04-16 09:30] LABS: Basophils % (A) 1 %; Eosinophils # (A) 0.1 k/uL (0-0.7); Eosinophils % (A) 2 %; HCT 50.5 % (39.0-53.0); HGB 17.1 gm/dL (13.0-17.5); Lymphocytes # (A) 1.1 k/uL (1.0-4.8); Lymphocytes % (A) 14 %; MCH 31.9 pg (25.0-35.0); MCHC 33.8 g/dL (31.0-37.0); MCV 94.3 fL (80.0-100.0); Mean Platelet Volume 7.3; Monocytes # (A) 0.4 k/uL (0-1.0); Monocytes % (A) 5 %; Neutrophils # (A) 5.9 k/uL (1.3-7.7); Neutrophils % (A) 78 %; Platelet Count 130 k/uL (150-450); RBC 5.35 m/uL (4.30-5.90); RDW 13.7 % (11.5-15.5); WBC 7.5 k/uL (3.8-10.6)
[2020-04-16 09:41] LABS: African American GFR (CKD) >90 (>60 ml/min/1.73 sqM); Anion Gap 5 mmol/L; Blood Urea Nitrogen 11 mg/dL (9-20); Calcium 9.2 mg/dL (8.4-10.2); Carbon Dioxide 26 mmol/L (22-30); Chloride 106 mmol/L (98-107); Cholesterol 143 mg/dL (<200); Glucose 134 mg/dL (74-99); HDL Cholesterol 53 mg/dL (40-60); LDL Cholesterol,Calculated 57 mg/dL (0-99); Non-African American GFR(CKD) >90 (>60 ml/min/1.73 sqM); Potassium 4.4 mmol/L (3.5-5.1); Sodium 137 mmol/L (137-145); Triglycerides 165 mg/dL (<150)
[2020-04-16] MEDS: ATORVASTATIN 80 MG TAB PO SCH (09:55)
[2020-04-16] MEDS: CLOPIDOGREL 75 MG TAB PO SCH (09:55)
[2020-04-16] MEDS: predniSONE 20 MG TAB PO SCH (09:55)
[2020-04-16] MEDS: amLODIPine 5 MG TAB PO SCH (09:55)
[2020-04-16] MEDS: HEPARIN SODIUM,PORCINE 5,000 UNIT/ML 1 ML VIAL SQ SCH ×2 (09:55→20:42)
[2020-04-16] MEDS: lisinopriL 10 MG TAB PO SCH (09:55)
[2020-04-16 12:05] LABS: Glucose,Whole Blood 150 mg/dL (75-99)
--- NOTE | 2020-04-16 12:28 | CONS ---
CONSULTATION This is a 55 gentleman who is known to me from the past. The patient had a left carotid endarterectomy about 4 years ago. He lost followup post surgery. He came with a history of generalized weakness and some weakness on the left side of his leg. The patient was admitted and had MRI and he went home and he has been readmitted with similar symptoms. Some weakness on the left side and affecting the arm and leg. The patient had a complete stroke workup. CT scan of the brain shows no intracranial abnormality. There is a 90% stenosis of the origin of the right internal carotid artery and there is less than 25% stenosis of the left internal carotid artery. The patient also had MRI of the brain. The impression is numerous white matter high signal foci which could be related to the chronic small vessel ischemia or demyelination disease and multiple punctate white and sánchez matter high signal foci on the left cerebellar hemisphere could be foci of multiple acute lacunar infarct. PAST MEDICAL HISTORY: Patient has history of diabetes, obesity, and hypertension. PAST SURGERY HISTORY: Patient had a left carotid endarterectomy done about 4 years ago. PERSONAL HISTORY: Patient is a smoker. Continues to smoke daily. PHYSICAL EXAMINATION: Patient was seen in his room. The patient is quite tired and lethargic. NECK: Supple. No bruit appreciated. CHEST: Clear to auscultation. ABDOMEN: Soft. Femoral pulses are present. Patient has a normal motor function on the right side, left side slightly decreased. The patient is on antiplatelet therapy and neuro consult. We will follow with you. Since MRI and brain scan shows most likely lacunar infarct, I will have a 2nd opinion for this intervention. At this point, we will continue with control of blood pressure, antiplatelet therapy. Thank you for this consultation. MMODL / IJN: [id number] /
--- NOTE | 2020-04-16 12:48 | P.CRDCN ---
History of Present Illness Consult date: 04/16/20 History of present illness: CHIEF COMPLAINT: CVA HISTORY OF PRESENT ILLNESS: This is a 55-year old male with a past medical h istory significant for TIA, diabetes mellitus, hypertension, hyperlipidemia, and carotid stenosis. 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 We have been asked to see the patient in consultation for CVA. Patient examined this morning at the bedside. Patient states he came to the hospital secondary to left-sided weakness and problems with coordination. He denies chest pain or pressure. Denies shortness of breath. Patient had a CT angios head and neck performed which reveals more than 90% stenosis of the right internal carotid artery. There is less than 25% stenosis of the left internal carotid artery. Vascular surgery has been consulted for evaluation. DIAGNOSTICS: EKG reveals sinus rhythm. Heart rate 85. Laboratory data: WBC 7.5. Hemoglobin 17.1. Platelet count 1:30. Sodium 137. Potassium 4.4. BUN 11. Creatinine 0.73. Cholesterol 143. Current home cardiac medications include lisinopril 10 mg daily, Plavix 75 mg daily, Lipitor 80 mg daily, Norvasc 5 mg daily, aspirin 81 mg daily REVIEW OF SYSTEMS: At the time of my exam: CONSTITUTIONAL: Denies fever or chills. HEENT: Denies blurred vision, vision changes, or eye pain. Denies hemoptysis CARDIOVASCULAR: Denies chest pain, orthopnea, PND or palpitations RESPIRATORY: No shortness of breath. GASTROINTESTINAL: Denies abdominal pain. Denies nausea or vomiting. HEMATOLOGIC: Denies bleeding disorders. GENITOURINARY: Denies any blood in urine. SKIN: Denies pruitis. Denies rash. PHYSICAL EXAM: VITAL SIGNS: Reviewed. GENERAL: Well-developed in no acute distress. HEENT: Head is normocephalic. Pupils are equal, round. Sclerae anicteric. Mucous membranes of the mouth are moist. Neck supple. No JVD or thyromegaly LUNGS: Respirations even and unlabored. Lungs essentially clear to auscultation bilaterally. HEART: Regular rate and rhythm. S1 and S2 heard. ABDOMEN: Soft. Nondistended. Nontender. EXTREMITIES: Normal range of motion. No clubbing or cyanosis. Peripheral pulses intact. No lower extremity edema NEUROLOGIC: Awake and alert. Oriented x 3. ASSESSMENT: Acute CVA History of TIA Hypertension Hyperlipidemia Right internal carotid artery stenosis, 90% History of left carotid endarterectomy Nicotine dependence PLAN: Vascular surgery consulted. Await recommendations Continue telemetry monitoring Obtain 2-D echo to assess cardiac structure and function Further recommendations pending patient's course Nurse practitioner note has been reviewed by physician. Signing provider agrees with the documented findings, assessment, and plan of care. Past Medical History Past Medical History: CVA/TIA, Diabetes Mellitus, Hyperlipidemia, Hypertension Additional Past Medical History / Comment(s): carotid artery atherosclerosis. psoriasis History of Any Multi-Drug Resistant Organisms: None Reported Past Surgical History: No Surgical Hx Reported Additional Past Surgical History / Comment(s): carotid artery plaque clean out Past Anesthesia/Blood Transfusion Reactions: No Reported Reaction Past Psychological History: No Psychological Hx Reported Smoking Status: Current every day smoker Past Alcohol Use History: Rare Past Drug Use History: None Reported - Past Family History Mother Family Medical History: Diabetes Mellitus Medications and Allergies Home Medications Medication Instructions Recorded Confirmed Type Albuterol Sulfate [Albuterol 1 - 2 puff PO RT-Q4H PRN 04/13/20 04/15/20 History Sulfate Hfa] amLODIPine [Norvasc] 5 mg PO DAILY 04/13/20 04/15/20 History lisinopriL [Zestril] 10 mg PO DAILY 04/13/20 04/15/20 History Aspirin 81 mg PO DAILY #30 chew 04/14/20 04/15/20 Rx Atorvastatin [Lipitor] 80 mg PO DAILY #30 tab 04/14/20 04/15/20 Rx Clopidogrel [Plavix] 75 mg PO DAILY #30 tab 04/14/20 04/15/20 Rx metFORMIN HCL [Glucophage] 850 mg PO BID #60 tab 04/14/20 04/15/20 Rx predniSONE [Deltasone] 20 mg PO DAILY 04/15/20 04/15/20 History Allergies Allergy/AdvReac Type Severity Reaction Status Date / Time shellfish derived [Shellfish] Allergy Severe Rash/Hives Verified 04/15/20 17:10 sulfamethoxazole AdvReac Severe Blistering Verified 04/15/20 17:10 [From Bactrim] all over body (not hives) trimethoprim [From Bactrim] AdvReac Severe Blistering Verified 04/15/20 17:10 all over body (not hives) monosodium glutamate [MSG] AdvReac Nausea & Verified 04/15/20 17:10 Vomiting Physical Exam Vitals: Vital Signs Temp Pulse Pulse Resp BP BP Pulse Ox 04/16/20 09:17 76 04/16/20 09:05 80 04/16/20 08:00 98.0 F 93 171/67 93 L 04/16/20 04:00 98.1 F 83 18 166/110 93 L 04/16/20 02:00 76 18 04/16/20 00:00 97.5 F L 76 18 155/76 94 L 04/15/20 19:12 71 18 147/96 98 04/15/20 18:47 65 18 149/87 04/15/20 17:30 71 16 146/69 98 04/15/20 15:39 98.9 F 92 18 166/88 98 Intake and Output 04/15/20 04/16/20 04/16/20 22:59 06:59 14:59 Intake Total 118 Output Total 0 Balance 0 118 Intake: Oral 118 Output: Urine 0 Other: Voiding Method Toilet Toilet Urinal Urinal # Voids 0 1 Weight 117.934 kg 114.4 kg Results 04/16/20 08:53 04/16/20 08:53 Cardiac Enzymes 04/15/20 04/15/20 Range/Units 15:44 15:44 AST 23 (17-59) U/L Troponin I 0.023 (0.000-0.034) ng/mL Coagulation 04/15/20 Range/Units 15:44 PT 9.6 (9.0-12.0) sec APTT 22.3 (22.0-30.0) sec Lipids 04/16/20 Range/Units 08:53 Triglycerides 165 H (<150) mg/dL Cholesterol 143 (<200) mg/dL HDL Cholesterol 53 (40-60) mg/dL CBC 04/15/20 04/16/20 Range/Units 15:44 08:53 WBC 7.9 7.5 (3.8-10.6) k/uL RBC 5.30 5.35 (4.30-5.90) m/uL Hgb 17.4 17.1 (13.0-17.5) gm/dL Hct 49.5 50.5 (39.0-53.0) % Plt Count 124 L 130 L (150-450) k/uL Comprehensive Metabolic Panel 04/15/20 04/16/20 Range/Units 15:44 08:53 Sodium 136 L 137 (137-145) mmol/L Potassium 4.4 4.4 (3.5-5.1) mmol/L Chloride 103 106 (98-107) mmol/L Carbon Dioxide 27 26 (22-30) mmol/L BUN 15 11 (9-20) mg/dL Creatinine 0.70 0.73 (0.66-1.25) mg/dL Glucose 195 H 134 H (74-99) mg/dL Calcium 9.5 9.2 (8.4-10.2) mg/dL AST 23 (17-59) U/L ALT 37 (4-49) U/L Alkaline Phosphatase 34 L (38-126) U/L Total Protein 6.6 (6.3-8.2) g/dL Albumin 4.4 (3.5-5.0) g/dL Current Medications Generic Name Dose Route Start Last Admin Trade Name Freq PRN Reason Stop Dose Admin Hydrocodone Bitart/Acetaminophen 1 each 04/15/20 19:29 Hydrocodone/Apap 5-325mg 1 Each Tab PO Q6HR PRN Pain Albuterol Sulfate 2.5 mg 04/15/20 19:29 04/16/20 09:06 Albuterol Nebulized 2.5 Mg/3 Ml INHALATION 2.5 mg RT-Q4H PRN Administration Shortness Of Breath Alprazolam 0.25 mg 04/15/20 19:29 Alprazolam 0.25 Mg Tab PO TID PRN Anxiety Amlodipine Besylate 5 mg 04/16/20 09:00 04/16/20 09:55 Amlodipine 5 Mg Tab PO 5 mg DAILY LUCIO Administration Aspirin 325 mg 04/16/20 12:00 Aspirin 325 Mg Tab PO DAILY LUCIO Atorvastatin Calcium 80 mg 04/16/20 09:00 04/16/20 09:55 Atorvastatin 80 Mg Tab PO 80 mg DAILY LUCIO Administration Clopidogrel Bisulfate 75 mg 04/16/20 09:00 04/16/20 09:55 Clopidogrel 75 Mg Tab PO 75 mg DAILY LUCIO Administration Heparin Sodium (Porcine) 5,000 unit 04/15/20 21:00 04/16/20 09:55 Heparin Sodium,Porcine 5,000 Unit/Ml 1 Ml Vial SQ 5,000 unit Q12HR LUCIO Administration Sodium Chloride 1,000 mls @ 50 mls/hr 04/15/20 18:30 04/16/20 04:48 Saline 0.9% IV 50 mls/hr .Q20H LUCIO Administration Insulin Aspart 0 unit 04/15/20 21:00 04/16/20 06:39 Insulin Aspart (Novolog) 100 Unit/Ml Vial SQ 2 unit ACHS LUCIO Administration Protocol Lisinopril 10 mg 04/16/20 09:00 04/16/20 09:55 Lisinopril 10 Mg Tab PO 10 mg DAILY LUCIO Administration Metformin HCl 850 mg 04/15/20 21:00 04/16/20 06:37 Metformin 850 Mg Tab PO 850 mg AC-BID LUCIO Administration Pantoprazole Sodium 40 mg 04/16/20 07:30 04/16/20 06:37 Pantoprazole 40 Mg Tablet PO 40 mg [id number] LUCIO Administration Prednisone 20 mg 04/16/20 09:00 04/16/20 09:55 Prednisone 20 Mg Tab PO 20 mg DAILY LUCIO Administration Intake and Output 04/15/20 04/16/20 04/16/20 22:59 06:59 14:59 Intake Total 118 Output Total 0 Balance 0 118 Intake: Oral 118 Output: Urine 0 Other: Voiding Method Toilet Toilet Urinal Urinal # Voids 0 1 Weight 117.934 kg 114.4 kg 04/16/20 08:53 04/16/20 08:53
--- NOTE | 2020-04-16 12:51 | P.CNNES ---
History of Present Illness Consult date: 04/15/20 Requesting physician: Ifeanyi Sheppard Reason for Consult: Stroke: for left sided weakness and numbness History of Present Illness: This is a 55-year-old right-handed gentleman with medical history of stroke (around 6 years ago according with right-sided weakness and that lasted 6 days according to patient), symptomatic left carotid stenosis around 80% in 2016 per CTA status post neurectomy by Dr. Nash on 04/11/2016, right carotid artery stenosis, , psoriasis, diabetes, hypertension, hyperlipidemia who presented emergency department on 04/15/2020 at 15:37 for left-sided weakness and numbness. He said that his symptom onset was on the 04 14 2020 after being discharged from the hospital hehaving left-sided weakness numbness any felt unsteady walk-in. He said that he refused to come to the hospital because she wanted to be a home. As a result his symptoms didn't improve and that he came the next day to the hospital. Patient denies any slurring the speech or any word finding difficulties. Denies any visual disturbance. He feels his symptoms are somewhat better today compared to the initial presentation. Denies of any nausea any vomiting. Workup in the hospital consisted of: CT of the head was reported as white matter hypodensity in the posterior frontal lobe suggestive of acute infarct. Small lacunar infarct anterior left internal capsule on changes. No hemorrhage. CT angiography of the head and neck was reported as there is more than 90% stenosis at the origin of the right internal carotid artery. There is less than 925 stenosis over the left internal carotid artery. No intracranial angiographic abnormality. MRI of the brain was reported as numerous white matter high signal foci which could relate to chronic small vessel ischemia or demyelinating disease. Multiple punctate white and sánchez matter high signal foci on diffusion image on the left cerebral hemisphere could be foci of the multiple acute lacunar infarct. I personally reviewed the image MRI and the multiple foci is not over the left hemispheres over the right hemisphere. EKG was reported normal sinus rhythm. Nonspecific ST abnormality. Abnormal EKG. I personally saw the patient on 04/14/2020 for dizziness and the vision change. He felt the that he had the blurry vision, felt dizzy and unsteady gait on the 04/12/2020 at nighttime. As a result he presented to the hospital sugar was 345. And he said that he felt better after receiving insulin and the sugar was corrected. He had a carotid duplex on 03/17/2020 was reported as 50-60% over the right proximal internal carotid artery. And no hemodynamically significant stenosis over the left. I notified them that I could not rule out a TIA and that I wanted that to get the an MRI of the brain. I also notified him that I would like to get the rest of stroke workup such as lipid profile and 2-D echo TSH. He was reluctant and he stated that the he believes his symptoms were likely due to his diabetes and that the he'll follow up with a neurologist as an outpatient. As a result I placed him on aspirin his home dose and the Plavix in addition because of the carotid stenosis. I also increased Lipitor from 40 mg to 80 mg because of the carotid stenosis. He said that he'll follow up with a neurologist within 1-2 weeks and I notified him that if the he has any recurrent symptoms he needs come back to that hospital emergently. Patient continues to smoke cigarettes a pack last him one half a days and he's been smoking for years but in the last couple weeks he has cut down to 5 cigars a day. Review of Systems Review of system: The 12 point system was reviewed and apparent positive and negative per HPI. Past Medical History Past Medical History: CVA/TIA, Diabetes Mellitus, Hyperlipidemia, Hypertension Additional Past Medical History / Comment(s): carotid artery atherosclerosis. psoriasis History of Any Multi-Drug Resistant Organisms: None Reported Past Surgical History: No Surgical Hx Reported Additional Past Surgical History / Comment(s): carotid artery plaque clean out Past Anesthesia/Blood Transfusion Reactions: No Reported Reaction Past Psychological History: No Psychological Hx Reported Smoking Status: Current every day smoker Past Alcohol Use History: Rare Past Drug Use History: None Reported - Past Family History Mother Family Medical History: Diabetes Mellitus Medications and Allergies Home Medications Medication Instructions Recorded Confirmed Type Albuterol Sulfate [Albuterol 1 - 2 puff PO RT-Q4H PRN 04/13/20 04/15/20 History Sulfate Hfa] amLODIPine [Norvasc] 5 mg PO DAILY 04/13/20 04/15/20 History lisinopriL [Zestril] 10 mg PO DAILY 04/13/20 04/15/20 History Aspirin 81 mg PO DAILY #30 chew 04/14/20 04/15/20 Rx Atorvastatin [Lipitor] 80 mg PO DAILY #30 tab 04/14/20 04/15/20 Rx Clopidogrel [Plavix] 75 mg PO DAILY #30 tab 04/14/20 04/15/20 Rx metFORMIN HCL [Glucophage] 850 mg PO BID #60 tab 04/14/20 04/15/20 Rx predniSONE [Deltasone] 20 mg PO DAILY 04/15/20 04/15/20 History Allergies Allergy/AdvReac Type Severity Reaction Status Date / Time shellfish derived [Shellfish] Allergy Severe Rash/Hives Verified 04/15/20 17:10 sulfamethoxazole AdvReac Severe Blistering Verified 04/15/20 17:10 [From Bactrim] all over body (not hives) trimethoprim [From Bactrim] AdvReac Severe Blistering Verified 04/15/20 17:10 all over body (not hives) monosodium glutamate [MSG] AdvReac Nausea & Verified 04/15/20 17:10 Vomiting Physical Examination - Vital Signs Vital Signs: Vital Signs Temp Pulse Pulse Resp BP BP Pulse Ox 04/16/20 09:17 76 04/16/20 09:05 80 04/16/20 04:00 98.1 F 83 18 166/110 93 L 04/16/20 02:00 76 18 04/16/20 00:00 97.5 F L 76 18 155/76 94 L 04/15/20 19:12 71 18 147/96 98 04/15/20 18:47 65 18 149/87 04/15/20 17:30 71 16 146/69 98 04/15/20 15:39 98.9 F 92 18 166/88 98 Intake and Output 04/15/20 04/16/20 04/16/20 22:59 06:59 14:59 Intake Total 118 Output Total 0 Balance 0 118 Intake: Oral 118 Output: Urine 0 Other: Voiding Method Toilet Toilet Urinal Urinal # Voids 0 1 Weight 117.934 kg 114.4 kg GENERAL: The patient is lying in bed and is not in acute distress. CHEST: The heart rate is regular rate rhythm. No murmurs to auscultation. Positive carotid bruit over the right. LUNG: Clear to auscultation bilaterally no wheezing noted throughout. Not labored breathing. ABDOMEN/GI: Bowel sounds present in all 4 quadrants. No tenderness to palpation throughout. NEUROLOGICAL: Higher mental function: The patient is awake, alert, oriented to self, place and time. Patient is slow to respond. Patient is following simple commands. No aphasia and no neglect. Cranial nerves: The pupils are round, equal and reactive to light and accommodation. Visual barcenas are full to confrontation throughout. Extraocular movement is intact no nystagmus is noted. Facial sensation is normal to touch throughout. The facial strength is normal throughout. Hearing is normal bilaterally to hand rub. Tongue is midline and moved [id number] without any difficulty. No dysarthria is noted. Shoulder shrug is normal bilaterally. Motor: Gait is normal with normal arm swings.The strength is 5- over the left upper extremity. Otherwise 5/5 throughout. Normal tone and bulk. Cerebellum: Normal finger to nose bilaterally. Sensation: Sensation is normal to touch throughout. Reflexes (right/left): 2+ throughout. Plantars are downgoing bilaterally. Results Serum glucose at presentation is 195 the. Lipid profile is triglycerides 165, cholesterol of 143, LDLs 57, HDL is 53. TSH is 4.46 which is within normal limits. - Laboratory Findings CBC and BMP: 04/16/20 08:53 04/16/20 08:53 Abnormal Lab Findings: Abnormal Labs 04/15/20 04/15/20 04/15/20 15:44 15:44 15:47 Plt Count 124 L Sodium 136 L Glucose 195 H POC Glucose (mg/dL) 181 H Alkaline Phosphatase 34 L Triglycerides 04/15/20 04/16/20 04/16/20 21:10 06:18 08:53 Plt Count Sodium Glucose 134 H POC Glucose (mg/dL) 150 H 153 H Alkaline Phosphatase Triglycerides 165 H 04/16/20 08:53 Plt Count 130 L Sodium Glucose POC Glucose (mg/dL) Alkaline Phosphatase Triglycerides Assessment and Plan Assessment: This is a 55-year-old right-handed gentleman with multiple medical problems that presented to the emergency department on 04/15/2020 for left-sided weakness numbness and unsteady walking. Patient's symptoms started on 04/14/2020 after being discharged from the hospital and he refused to come back to the hospital because he wanted to be with the his family. No IV TPA since the outside the window. Patient had similar presentation per him on 04/12/2020 and I personally and his previous recent ED visit but the patient refused to get any stroke workup and wanted to be with his family. Left-sided weakness and numbness due to subacute stroke (has multiple foci over the right hemisphere per MRI Brain). Embolic (seems artery to artery emboli from Right Internal carotid artery). Symptomatic right internal carotid artery (Per CTA 90% stenosis) History of symptomatic left internal carotid artery s/p endarterectomy by Dr. Marcano on 04/11/2016 Diabetes mellitus Hypertension Hyperlipidemia Tobacco use Plan: Patient is currently on aspirin 325 mg as well as Plavix 75 mg we'll continue dual antiplatelets because of the symptomatic right internal carotid artery. Also continue Lipitor 80 mg daily which also helps out with stabilizing plaque of the carotid stenosis. Dr. Nash vascular surgeon is consulted for the symptomatic right internal carotid artery. I recommend the patient to have intervention especially with acute stroke he had. I spoke with the general technician regarding getting in touch with MRI radiologist in order to correct the note that it's a right hemispheric that's affected and not the left. Ordered 2-D echo. Consulted cardiology and requested that bubble study as well to rule out cardioembolic. PT/OT and INSTRUCTIONAL PARAPROFESSIONAL are consulted. We'll defer the medical management such as diabetes, hypertension to the primary team. He was counseled on tobacco cessation Thank you for the consultation. Jordan Rock M.D. Neuro-hospitalist Time with Patient: Greater than 30
[2020-04-16] MEDS: ASPIRIN 325 MG TAB PO SCH (13:04)
[2020-04-16 17:11] LABS: Glucose,Whole Blood 187 mg/dL (75-99)
[2020-04-16 20:20] LABS: Glucose,Whole Blood 160 mg/dL (75-99)
[2020-04-17 06:19] LABS: Glucose,Whole Blood 111 mg/dL (75-99)
[2020-04-17] MEDS: INSULIN ASPART (NovoLOG) 100 UNIT/ML VIAL SQ SCH ×4 (06:21→20:27)
[2020-04-17] MEDS: PANTOPRAZOLE 40 MG TABLET PO SCH (06:31)
[2020-04-17] MEDS: metFORMIN 850 MG TAB PO SCH ×2 (06:31→18:32)
[2020-04-17] MEDS: ATORVASTATIN 80 MG TAB PO SCH (08:57)
[2020-04-17] MEDS: ASPIRIN 325 MG TAB PO SCH (08:57)
[2020-04-17] MEDS: predniSONE 20 MG TAB PO SCH (08:57)
[2020-04-17] MEDS: lisinopriL 10 MG TAB PO SCH (08:58)
[2020-04-17] MEDS: CLOPIDOGREL 75 MG TAB PO SCH (08:58)
[2020-04-17] MEDS: amLODIPine 5 MG TAB PO SCH (08:58)
[2020-04-17] MEDS: HEPARIN SODIUM,PORCINE 5,000 UNIT/ML 1 ML VIAL SQ SCH ×2 (08:58→20:27)
--- NOTE | 2020-04-17 10:47 | P.PN ---
Subjective Progress Note Date: 04/17/20 Patient was seen at bedside and he stated that he feels about the same as yesterday. He denies any further weakness, numbness, any slurring the speech or any data difficulty getting his words out. He said that he is walking around and the without any difficulty. I spoke with Dr. Nash regarding the MRI of the brain findings and I notified him that should be the read as a right hemispheric multifocal infarct in that the right internal carotid artery is symptomatic. Objective - Vital Signs Vital signs: Vital Signs Temp 97.8 F 04/16/20 23:46 Pulse 72 04/17/20 03:21 Resp 18 04/17/20 03:21 BP 188/89 04/17/20 03:21 Pulse Ox 94 L 04/17/20 03:21 Intake & Output 04/16/20 04/17/20 04/17/20 18:59 06:59 18:59 Intake Total 958 240 Output Total 425 200 Balance 533 -200 240 Weight 116.2 kg Intake: Oral 598 240 Tube Feeding 360 Output: Urine 425 200 Other: Voiding Method Toilet # Voids 1 - Exam GENERAL: The patient is lying in bed and is not in acute distress. NEUROLOGICAL: Higher mental function: The patient is awake, alert, oriented to self, place and time. Patient is slow to respond. Patient is following simple commands. No aphasia and no neglect. Cranial nerves: The pupils are round, equal and reactive to light and accommodation. Visual barcenas are full to confrontation throughout. Extraocular movement is intact no nystagmus is noted. Facial sensation is normal to touch throughout. The facial strength is normal throughout. Hearing is normal bilaterally to hand rub. Tongue is midline and moved [id number] without any difficulty. No dysarthria is noted. Shoulder shrug is normal bilaterally. Motor: Gait is normal with normal arm swings.The strength is 5- over the left upper extremity. Otherwise 5/5 throughout. Normal tone and bulk. Cerebellum: Normal finger to nose bilaterally. Sensation: Sensation is normal to touch throughout. Reflexes (right/left): 2+ throughout. Plantars are downgoing bilaterally. - Labs CBC & Chem 7: 04/17/20 11:42 04/17/20 11:42 Labs: Abnormal Lab Results - Last 24 Hours (Table) 04/16/20 04/16/20 04/16/20 Range/Units 11:58 17:05 20:18 POC Glucose (mg/dL) 150 H 187 H 160 H (75-99) mg/dL 04/17/20 Range/Units 06:15 POC Glucose (mg/dL) 111 H (75-99) mg/dL Assessment and Plan Assessment: This is a 55-year-old right-handed gentleman with multiple medical problems that presented to the emergency department on 04/15/2020 for left-sided weakness numbness and unsteady walking. Patient's symptoms started on 04/14/2020 after being discharged from the hospital and he refused to come back to the hospital because he wanted to be with the his family. No IV TPA since the outside the window. Patient had similar presentation per him on 04/12/2020 and I personally and his previous recent ED visit but the patient refused to get any stroke workup and wanted to be with his family. Left-sided weakness and numbness due to subacute stroke over the right hemisphere (has multiple foci over the right hemisphere per MRI Brain). Embolic (seems artery to artery emboli from Right Internal carotid artery). Symptomatic right internal carotid artery (Per CTA 90% stenosis) History of symptomatic left internal carotid artery s/p endarterectomy by Dr. Marcano on 04/11/2016 Diabetes mellitus Hypertension Hyperlipidemia Tobacco use Plan: Patient is currently on aspirin 325 mg as well as Plavix 75 mg we'll continue dual antiplatelets because of the symptomatic right internal carotid artery. Also continue Lipitor 80 mg daily which also helps out with stabilizing plaque of the carotid stenosis. Dr. Nash vascular surgeon is consulted for the symptomatic right internal carotid artery. I recommend the patient to have intervention especially with acute stroke he had. I personally spoke with Dr. Marcano regarding that the symptomatic right ICA and he stated that the the patient likely will have the surgery as an inpatient. I spoke with the food technician regarding getting in touch with MRI radiologist in order to correct the note that it's a right hemispheric that's affected and not the left. 2-D echo: pending Consulted cardiology and requested that bubble study as well to rule out cardioembolic. PT/OT and HEAVY DUTY DIESEL MECHANIC are consulted. We'll defer the medical management such as diabetes, hypertension to the primary team. He was counseled on tobacco cessation The plan was discussed with the patient as well as the patient's nurse and Dr. Nash. There is no neurology service over the weekend. Please Perfect serve me if needed. Jordan Rock M.D. Neuro-hospitalist Time with Patient: Less than 30
--- NOTE | 2020-04-17 11:41 | P.PN ---
Progress Note - Text 55 a gentleman known to me from the past patient had a left carotid endarterectomy 4 years ago patient came with some TIA symptoms and he had a computed tomography scan and MRI CTA showed right-sided 90% stenosis left side is 25% stenosis. No recent TIA or murmurs feebleness no motor function are normal on both sides. Discussed with the neurology and patient is having had cardiac clearance for surgical intervention I will discuss with the follow with you
[2020-04-17 12:12] LABS: Glucose,Whole Blood 130 mg/dL (75-99)
[2020-04-17 12:37] LABS: Basophils # (A) 0.1 k/uL (0-0.2); Basophils % (A) 1 %; Eosinophils # (A) 0.1 k/uL (0-0.7); Eosinophils % (A) 1 %; HCT 51.2 % (39.0-53.0); HGB 16.5 gm/dL (13.0-17.5); Lymphocytes % (A) 13 %; MCH 30.8 pg (25.0-35.0); MCHC 32.2 g/dL (31.0-37.0); MCV 95.6 fL (80.0-100.0); Mean Platelet Volume 7.2; Monocytes # (A) 0.5 k/uL (0-1.0); Monocytes % (A) 6 %; Neutrophils # (A) 6.3 k/uL (1.3-7.7); Neutrophils % (A) 77 %; Platelet Count 121 k/uL (150-450); RBC 5.35 m/uL (4.30-5.90); RDW 13.9 % (11.5-15.5); WBC 8.2 k/uL (3.8-10.6)
[2020-04-17 12:46] LABS: African American GFR (CKD) >90 (>60 ml/min/1.73 sqM); Anion Gap 7 mmol/L; Blood Urea Nitrogen 17 mg/dL (9-20); Calcium 9.2 mg/dL (8.4-10.2); Carbon Dioxide 24 mmol/L (22-30); Chloride 106 mmol/L (98-107); Glucose 134 mg/dL (74-99); Non-African American GFR(CKD) >90 (>60 ml/min/1.73 sqM); Potassium 4.4 mmol/L (3.5-5.1); Sodium 137 mmol/L (137-145)
--- NOTE | 2020-04-17 13:12 | ECHOF ---
Referral Reason:stroke. Also do bubble study MEASUREMENTS -------- HEIGHT: 177.8 cm WEIGHT: 116.1 kg BP: 188/89 IVSd: 1.6 cm (0.6 - 1.1) LVIDd: 5.6 cm (3.9 - 5.3) LVPWd: 1.9 cm (0.6 - 1.1) EDV(Teich): 154 ml IVSs: 2.0 cm LVIDs: 4.6 cm LVPWs: 2.2 cm %IVS Thck: 28 % ESV(Teich): 97 ml EF(Teich): 37 % %FS: 18 % SV(Teich): 57 ml RVIDd: 3.1 cm (< 3.3) LALs A4C: 5.1 cm LAAs A4C: 13.4 cm LAESV A-L A4C: 30 ml LAESV MOD A4C: 28 ml LALs A2C: 5.1 cm LAAs A2C: 16.6 cm LAESV A-L A2C: 46 ml LAESV MOD A2C: 44 ml LAESV(A-L): 37 ml LAESV Index (A-L): 16.00 ml/m Ao Diam: 3.0 cm (2.0 - 3.7) AV Cusp: 1.8 cm (1.5 - 2.6) EPSS: 0.9 cm MV E Hayder: 0.57 m/s MV DecT: 239 ms MV Dec Hopkins: 2.4 m/s MV A Hayder: 0.86 m/s MV E/A Ratio: 0.66 MV PHT: 69 ms LVOT Vmax: 0.88 m/s LVOT maxP.09 mmHg AV Vmax: 2.11 m/s AV maxP.85 mmHg AV Vmax: 2.17 m/s AV Vmean: 1.58 m/s AV maxP.77 mmHg AV meanP.11 mmHg AV Env.Ti: 278 ms AV VTI: 43.8 cm TR Vmax: 1.84 m/s TR maxP.56 mmHg RAP: 5.00 mmHg RVSP: 18.56 mmHg MV EF SLOPE: 122.33 mm/s (70 - 150) MV EXCURSION: 20.52 mm (> 18.000) FINDINGS -------- Sinus rhythm. This was a technically difficult study with suboptimal views. The left ventricular size is normal. There is moderate concentric left ventricular hypertrophy. O verall left ventricular systolic function is mildly impaired with, an EF between 45 - 50 %. The right ventricle is normal in size. Normal LA size by volume 22+/-6 ml/m2. The right atrium was not well visualized. Contrast study was performed with 2 iv injections of 8 ccs of agitated normal saline, at rest, and wi th cough. 5.0mg of Lumason was utilized for enhancement of images Negative saline study for PFO There is no evidence of aortic regurgitation. There is mild aortic stenosis present. Peak/mean gr adient across the Aortic Valve is 18.77mmHg / 11.11mmHg. The mitral valve is normal. No mitral regurgitation. Mild tricuspid regurgitation present. Right ventricular systolic pressure is normal at < 35 mmHg. The right ventricular systolic pressure, as measured by Doppler, is 18.56mmHg. The pulmonic valve was not well visualized. There is no pulmonic regurgitation present. The aortic root size is normal. Normal inferior vena cava with normal inspiratory collapse consistent with estimated right atrial pre ssure of 5 mmHg. There is no pericardial effusion. CONCLUSIONS -------- 1. There is moderate concentric left ventricular hypertrophy. 2. Overall left ventricular systolic function is mildly impaired with, an EF between 45 - 50 %. 3. Normal LA size by volume 22+/-6 ml/m2. 4. Negative saline study for PFO 5. There is mild aortic stenosis present. 6. Peak/mean gradient across the Aortic Valve is 18.77mmHg / 11.11mmHg. 7. Mild tricuspid regurgitation present. 8. There is no pericardial effusion. DIRECTOR DIGITAL ANALYTICS: Ai Lee RDCS
--- NOTE | 2020-04-17 14:23 | P.PN ---
Subjective Progress Note Date: 04/17/20 CHIEF COMPLAINT: CVA HISTORY OF PRESENT ILLNESS: Patient examined this morning at the bedside. He denies chest pain or pressure. Denies shortness of breath. Echocardiogram reveals EF 45-50%, mild aortic stenosis and mild tricuspid regurgitation. Negative saline study for PFO PHYSICAL EXAM: VITAL SIGNS: Reviewed. GENERAL: Well-developed in no acute distress. HEENT: Head is normocephalic. Pupils are equal, round. Sclerae anicteric. Mucous membranes of the mouth are moist. Neck supple. No JVD or thyromegaly LUNGS: Respirations even and unlabored. Lungs essentially clear to auscultation bilaterally. HEART: Regular rate and rhythm. S1 and S2 heard. ABDOMEN: Soft. Nondistended. Nontender. EXTREMITIES: Normal range of motion. No clubbing or cyanosis. Peripheral pulses intact. No lower extremity edema NEUROLOGIC: Awake and alert. Oriented x 3. ASSESSMENT: Acute CVA History of TIA Hypertension Hyperlipidemia Right internal carotid artery stenosis, 90% History of left carotid endarterectomy Nicotine dependence PLAN: Vascular surgery consulted. Possible second opinion to be obtained per vascular surgery dictation Patient is currently stable from a cardiac perspective Further recommendations pending patient's course Nurse practitioner note has been reviewed by physician. Signing provider agrees with the documented findings, assessment, and plan of care. Objective - Vital Signs Vital signs: Vital Signs Temp 98.5 F 04/17/20 08:40 Pulse 69 04/17/20 08:40 Resp 18 04/17/20 08:40 BP 138/80 04/17/20 08:40 Pulse Ox 95 04/17/20 08:40 Intake & Output 04/16/20 04/17/20 04/17/20 18:59 06:59 18:59 Intake Total 958 240 Output Total 425 200 Balance 533 -200 240 Weight 116.2 kg Intake: Oral 598 240 Tube Feeding 360 Output: Urine 425 200 Other: Voiding Method Toilet # Voids 1 - Labs CBC & Chem 7: 04/17/20 11:42 04/17/20 11:42 Labs: Abnormal Lab Results - Last 24 Hours (Table) 04/16/20 04/16/20 04/17/20 Range/Units 17:05 20:18 06:15 Plt Count (150-450) k/uL Glucose (74-99) mg/dL POC Glucose (mg/dL) 187 H 160 H 111 H (75-99) mg/dL 04/17/20 04/17/20 04/17/20 Range/Units 11:42 11:42 11:59 Plt Count 121 L (150-450) k/uL Glucose 134 H (74-99) mg/dL POC Glucose (mg/dL) 130 H (75-99) mg/dL
--- NOTE | 2020-04-17 15:58 | PN ---
PROGRESS NOTE DATE OF SERVICE: 04/17/2020 This 55-year-old gentleman who was admitted with acute stroke and TIA on the left side also had right internal carotid artery stenosis. The patient was seen by Dr. Nash and a second opinion was also sought. Dr. Nash is planning surgery. Cardiology preoperative evaluation is in progress. Past medical history reviewed. REVIEW OF SYSTEMS: CARDIOVASCULAR SYSTEM: As mentioned earlier. RESPIRATORY SYSTEM: As mentioned earlier. GI: As mentioned earlier. : No dysuria or retention. NERVOUS SYSTEM: No numbness, weakness. CURRENT MEDICATIONS: Reviewed. They include Esbon 5 mg, Ventolin, Lipitor, Plavix, Glucophage, Zestril, Protonix, prednisone. PHYSICAL EXAMINATION: Patient is alert, oriented x3. Pulse 69, blood pressure 160/93, respiration 18, temperature 98.1, pulse ox 96% on room air. HEENT: Conjunctivae normal. NECK: No jugular venous distention. CARDIOVASCULAR SYSTEM: S1, S2 muffled. RESPIRATORY SYSTEM: Breath sounds diminished at the bases. No rhonchi. No crackles. ABDOMEN: Soft, non-tender. LEGS: No edema. No swelling. NERVOUS SYSTEM: Minimal weakness on the left upper limb present. LABS: Labs at this time show WBC 8.2, platelets 121. Glucose noted. ASSESSMENT: 1. Acute stroke over the right hemisphere causing left-sided weakness. 2. Right internal carotid artery stenosis of about 80%. 3. History of left internal carotid endarterectomy. 4. Thrombocytopenia. 5. Hyponatremia. 6. Diabetes mellitus, type 2. 7. Continued ongoing nicotine dependence. 8. History of cerebrovascular accident, transient ischemic attack. 9. Hypertension. 10.Hyperlipidemia. 11.History of psoriasis. 12.Obesity with a body mass index of 37.6. 13.FULL CODE. RECOMMENDATIONS AND DISCUSSION: I recommend to continue current medications, continue with the monitoring, symptomatic treatment. Continue with antiplatelet agents. Otherwise PT/OT evaluation. Vascular surgery consultation appreciated. Cardiology evaluation. Possible endovascular surgery by Dr. Nash. Prognosis is guarded. Further recommendations to follow. MMODL / IJN: [id number] /
--- NOTE | 2020-04-17 16:04 | PN ---
PROGRESS NOTE DATE OF SERVICE: 04/16/2020 This 55-year-old gentleman was admitted with significant weakness of the side also had carotid artery stenosis on the right side which is significant. Patient had previous left-sided carotid artery surgery. Dr. Nash is following the patient closely. Second opinion has been sought. PT/OT is also following the patient closely. Past medical history reviewed. REVIEW OF SYSTEMS: CARDIOVASCULAR SYSTEM: No angina, palpitations. RESPIRATORY SYSTEM: As mentioned earlier. GI: As mentioned earlier. : No dysuria or retention. NERVOUS SYSTEM: ntd CURRENT MEDICATIONS: Reviewed. They include Plavix, heparin, NovoLog, Zestril, Glucophage, prednisone. Doses are reviewed. PHYSICAL EXAMINATION: Patient is alert, oriented x3. Pulse 80, blood pressure 180/70, respiration 18, temperature 97.8, pulse ox 94% on room air. HEENT: Conjunctivae normal. NECK: No jugular venous distention. CARDIOVASCULAR SYSTEM: S1, S2 muffled. RESPIRATORY SYSTEM: Breath sounds diminished at the bases. No rhonchi. ABDOMEN: Soft, non-tender. LEGS: Minimal weakness on the left side. NERVOUS SYSTEM: No focal deficit. LABS: Glucose 111, 134, 130. ASSESSMENT: 1. Acute stroke over the right hemisphere causing left-sided weakness. 2. Right internal carotid artery stenosis about 80%. 3. History of left internal carotid endarterectomy. 4. Thrombocytopenia. 5. Hyponatremia. 6. Diabetes mellitus, type 2. 7. Continued ongoing nicotine dependence. 8. History of cerebrovascular accident, transient ischemic attack. 9. Hypertension. 10.Hyperlipidemia. 11.History of psoriasis. 12.Obesity with a body mass index of 37.3. 13.FULL CODE. RECOMMENDATIONS AND DISCUSSION: I recommend to continue current medications, continue symptomatic treatment. Continue with antiplatelet agents. Otherwise, possible surgery per Vascular Surgery because the patient's symptoms correspond to the site of the stenosis. Overall prognosis is guarded because of multiple complex medical issues. Discussed with the patient, who understands and agrees. Further recommendations to follow. Cardiology consultation preoperatively. Monitor platelets closely. MMCELESTINAL / JORGEN: [id number] / ADRIANNE
[2020-04-17 17:21] LABS: Glucose,Whole Blood 166 mg/dL (75-99)
[2020-04-17 20:05] LABS: Glucose,Whole Blood 186 mg/dL (75-99)
[2020-04-18] MEDS: SODIUM CHLORIDE 0.9% 1,000 ML IV SCH (00:26)
[2020-04-18] MEDS: metFORMIN 850 MG TAB PO SCH ×2 (06:20→17:18)
[2020-04-18] MEDS: PANTOPRAZOLE 40 MG TABLET PO SCH (06:20)
[2020-04-18 06:22] LABS: Glucose,Whole Blood 112 mg/dL (75-99)
[2020-04-18] MEDS: INSULIN ASPART (NovoLOG) 100 UNIT/ML VIAL SQ SCH ×4 (06:28→20:55)
[2020-04-18] MEDS: ASPIRIN 325 MG TAB PO SCH (08:23)
[2020-04-18] MEDS: CLOPIDOGREL 75 MG TAB PO SCH (08:24)
[2020-04-18] MEDS: lisinopriL 10 MG TAB PO SCH (08:24)
[2020-04-18] MEDS: HEPARIN SODIUM,PORCINE 5,000 UNIT/ML 1 ML VIAL SQ SCH ×2 (08:24→21:01)
[2020-04-18] MEDS: ATORVASTATIN 80 MG TAB PO SCH (08:24)
[2020-04-18] MEDS: predniSONE 20 MG TAB PO SCH (08:24)
[2020-04-18] MEDS: amLODIPine 5 MG TAB PO SCH (08:24)
--- NOTE | 2020-04-18 08:52 | P.PN ---
Progress Note - Text 55-year-old gentleman known to me from the past patient had a left carotid and direct me in the past by me he came with the CVA affecting left side patient had a CTA done which shows 90% stenosis of the right carotid artery. Patient has history of smoking hypertension coronary artery disease patient is scheduled to have a stress test on Monday patient scheduled for surgery next week
[2020-04-18 10:35] LABS: Basophils % (A) 0 %; Eosinophils # (A) 0.1 k/uL (0-0.7); Eosinophils % (A) 2 %; HCT 49.8 % (39.0-53.0); HGB 16.5 gm/dL (13.0-17.5); Lymphocytes # (A) 1.2 k/uL (1.0-4.8); Lymphocytes % (A) 16 %; MCH 31.7 pg (25.0-35.0); MCHC 33.2 g/dL (31.0-37.0); MCV 95.4 fL (80.0-100.0); Mean Platelet Volume 7.6; Monocytes # (A) 0.5 k/uL (0-1.0); Monocytes % (A) 6 %; Neutrophils # (A) 5.5 k/uL (1.3-7.7); Neutrophils % (A) 74 %; Platelet Count 140 k/uL (150-450); RBC 5.22 m/uL (4.30-5.90); RDW 13.7 % (11.5-15.5); WBC 7.4 k/uL (3.8-10.6)
[2020-04-18 10:51] LABS: African American GFR (CKD) >90 (>60 ml/min/1.73 sqM); Anion Gap 7 mmol/L; Blood Urea Nitrogen 20 mg/dL (9-20); Calcium 9.2 mg/dL (8.4-10.2); Carbon Dioxide 26 mmol/L (22-30); Chloride 106 mmol/L (98-107); Glucose 188 mg/dL (74-99); Non-African American GFR(CKD) >90 (>60 ml/min/1.73 sqM); Potassium 4.3 mmol/L (3.5-5.1); Sodium 139 mmol/L (137-145)
[2020-04-18 11:48] LABS: Glucose,Whole Blood 153 mg/dL (75-99)
--- NOTE | 2020-04-18 14:23 | P.PN ---
Subjective Progress Note Date: 04/18/20 CHIEF COMPLAINT: CVA HISTORY OF PRESENT ILLNESS: Patient examined this morning at the bedside. He denies chest pain or pressure. Denies shortness of breath. Vital signs are stable. He is scheduled for surgery with Dr. Nash on Monday. PHYSICAL EXAM: VITAL SIGNS: Reviewed. GENERAL: Well-developed in no acute distress. HEENT: Head is normocephalic. Pupils are equal, round. Sclerae anicteric. Mucous membranes of the mouth are moist. Neck supple. No JVD or thyromegaly LUNGS: Respirations even and unlabored. Lungs essentially clear to auscultation bilaterally. HEART: Regular rate and rhythm. S1 and S2 heard. EXTREMITIES: Normal range of motion. No clubbing or cyanosis. Peripheral pulses intact. No lower extremity edema NEUROLOGIC: Awake and alert. Oriented x 3. ASSESSMENT: Acute CVA History of TIA Hypertension Hyperlipidemia Right internal carotid artery stenosis, 90% History of left carotid endarterectomy Nicotine dependence PLAN: Patient is scheduled for surgery with Dr. Nash on Monday Will obtain Lexiscan stress test on Monday Further recommendations pending patient's course Nurse practitioner note has been reviewed by physician. Signing provider agrees with the documented findings, assessment, and plan of care. Objective - Vital Signs Vital signs: Vital Signs Temp 96.2 F L 04/18/20 08:00 Pulse 67 04/18/20 08:00 Resp 16 04/18/20 08:00 BP 179/84 04/18/20 08:00 Pulse Ox 92 L 04/18/20 08:00 Intake & Output 04/17/20 04/18/20 04/18/20 18:59 06:59 18:59 Intake Total 480 236 Output Total 350 Balance 130 236 Weight 120 kg Intake: Oral 480 236 Output: Urine 350 Other: Voiding Method Toilet Toilet # Voids 1 1 - Labs CBC & Chem 7: 04/18/20 10:04 04/18/20 10:04 Labs: Abnormal Lab Results - Last 24 Hours (Table) 04/17/20 04/17/20 04/18/20 Range/Units 17:19 20:03 06:17 Plt Count (150-450) k/uL Glucose (74-99) mg/dL POC Glucose (mg/dL) 166 H 186 H 112 H (75-99) mg/dL 04/18/20 04/18/20 04/18/20 Range/Units 10:04 10:04 11:47 Plt Count 140 L (150-450) k/uL Glucose 188 H (74-99) mg/dL POC Glucose (mg/dL) 153 H (75-99) mg/dL
[2020-04-18 16:47] LABS: Glucose,Whole Blood 208 mg/dL (75-99)
[2020-04-18] MEDS: ALBUTEROL NEBULIZED 2.5 MG/3 ML INHALATION PRN (19:07)
[2020-04-18 20:40] LABS: Glucose,Whole Blood 83 mg/dL (75-99)
--- NOTE | 2020-04-18 22:07 | PN ---
PROGRESS NOTE DATE OF SERVICE: 04/18/2020 This is a 55-year-old gentleman who was admitted with significant weakness of the left side also was evaluated for right internal carotid stenosis. The patient was scheduled to have an endarterectomy next week preceded by a stress test. No chest pain. No palpitations. No fever. PHYSICAL EXAMINATION: Alert and oriented. Pulse 76, blood pressure 161/82, respiration 16, temperature normal, pulse ox 98% on room air HEENT: Conjunctivae normal. Oral mucosa moist. NECK: No jugular venous distention. No lymph node enlargement. CARDIOVASCULAR: S1, S2, muffled. No S3, no S4, RESPIRATORY: Diminished breath sounds at the bases. No rhonchi and no crackles. ABDOMEN: Soft, nontender. LEGS: No edema, no swelling. NERVOUS SYSTEM: No focal motor or sensory deficits. LABS: WBC 7, platelets 140. Accu-Cheks noted. ASSESSMENT: 1. Acute stroke of the right hemisphere causing left-sided weakness. 2. Right internal carotid artery stenosis with about 90%. 3. History of left internal carotid endarterectomy. 4. Thrombocytopenia, mild. 5. Hyponatremia. 6. Diabetes mellitus type 2. 7. Continued ongoing nicotine dependence. 8. History of CVA, TIA. 9. Hypertension. 10.Hyperlipidemia. 11.History of psoriasis. 12.Obesity with body mass index of 37.6. 13.FULL CODE. RECOMMENDATIONS AND DISCUSSION: I recommend to continue current management and symptomatic treatment. Continue with antiplatelet agents. Continue the labs. Otherwise, stress test followed with endarterectomy. Guarded prognosis because of multiple complex medical issues. Further recommendations to follow. MMODL / IJN: [id number] /
[2020-04-19 06:18] LABS: Glucose,Whole Blood 109 mg/dL (75-99)
[2020-04-19] MEDS: metFORMIN 850 MG TAB PO SCH ×2 (06:22→17:18)
[2020-04-19] MEDS: PANTOPRAZOLE 40 MG TABLET PO SCH (06:22)
[2020-04-19] MEDS: INSULIN ASPART (NovoLOG) 100 UNIT/ML VIAL SQ SCH ×4 (07:53→21:54)
[2020-04-19] MEDS: ASPIRIN 325 MG TAB PO SCH (08:26)
[2020-04-19] MEDS: lisinopriL 10 MG TAB PO SCH ×2 (08:26→20:47)
[2020-04-19] MEDS: CLOPIDOGREL 75 MG TAB PO SCH (08:26)
[2020-04-19] MEDS: ATORVASTATIN 80 MG TAB PO SCH (08:26)
[2020-04-19] MEDS: HEPARIN SODIUM,PORCINE 5,000 UNIT/ML 1 ML VIAL SQ SCH ×2 (08:26→20:47)
[2020-04-19] MEDS: predniSONE 20 MG TAB PO SCH (08:26)
[2020-04-19] MEDS: amLODIPine 5 MG TAB PO SCH (08:26)
[2020-04-19 11:59] LABS: Glucose,Whole Blood 148 mg/dL (75-99)
[2020-04-19] MEDS ORDERED: amLODIPine 5 MG TAB PO STA (13:12)
--- NOTE | 2020-04-19 15:01 | P.PN ---
Subjective Progress Note Date: 04/19/20 CHIEF COMPLAINT: CVA HISTORY OF PRESENT ILLNESS: Patient examined this morning at the bedside. He denies chest pain or pressure. Denies shortness of breath. Vital signs are stable. He is scheduled for surgery with Dr. Nash on Monday. PHYSICAL EXAM: VITAL SIGNS: Reviewed. GENERAL: Well-developed in no acute distress. HEENT: Head is normocephalic. Pupils are equal, round. Sclerae anicteric. Mucous membranes of the mouth are moist. Neck supple. No JVD or thyromegaly LUNGS: Respirations even and unlabored. Lungs essentially clear to auscultation bilaterally. HEART: Regular rate and rhythm. S1 and S2 heard. EXTREMITIES: Normal range of motion. No clubbing or cyanosis. Peripheral pulses intact. No lower extremity edema NEUROLOGIC: Awake and alert. Oriented x 3. ASSESSMENT: Acute CVA History of TIA Hypertension Hyperlipidemia Right internal carotid artery stenosis, 90% History of left carotid endarterectomy Nicotine dependence PLAN: Patient is scheduled for surgery with Dr. Nash on Monday Will obtain Lexiscan stress test on Monday Further recommendations pending patient's course Nurse practitioner note has been reviewed by physician. Signing provider agrees with the documented findings, assessment, and plan of care. Objective - Vital Signs Vital signs: Vital Signs Temp 97.8 F 04/19/20 08:00 Pulse 79 04/19/20 12:00 Resp 16 04/19/20 14:00 BP 184/106 04/19/20 12:00 Pulse Ox 96 04/19/20 12:00 Intake & Output 04/18/20 04/19/20 04/19/20 18:59 06:59 18:59 Intake Total 916 444 Balance 916 444 Weight 115.5 kg Intake: Oral 916 444 Other: Voiding Method Toilet Toilet Toilet # Voids 2 1 - Labs CBC & Chem 7: 04/18/20 10:04 04/18/20 10:04 Labs: Abnormal Lab Results - Last 24 Hours (Table) 04/18/20 04/19/20 04/19/20 Range/Units 16:46 06:16 11:58 POC Glucose (mg/dL) 208 H 109 H 148 H (75-99) mg/dL
--- NOTE | 2020-04-19 17:02 | PN ---
PROGRESS NOTE DATE OF SERVICE: 04/19/2020 This 55-year-old gentleman who was admitted with acute stroke also had significant right internal carotid stenosis. Cardiology performing a cardiac stress test tomorrow and subsequently Dr. Nash is planning surgery on Monday. No chest pain. No palpitations. No fever. Blood pressure elevated. PHYSICAL EXAMINATION: On exam, alert and oriented x3. Pulse 79. Blood pressure 108/86, respirations 16, temperature normal, pulse ox 98% on room air. HEENT: Conjunctivae normal. NECK: No jugular venous distention. CARDIOVASCULAR SYSTEM: S1, S2 muffled. RESPIRATORY SYSTEM: Breath sounds diminished at the bases. No rhonchi. No crackles. ABDOMEN: Soft. Nontender. Legs are no edema. No swelling. NERVOUS SYSTEM: No focal deficits. LABS: Glucose 108, platelets are 140. ASSESSMENT: 1. Acute stroke of the right hemisphere causing left-sided weakness. 2. Right internal carotid stenosis about 90%. 3. History of left internal carotid artery endarterectomy. 4. Hypertension. 5. Mild thrombocytopenia. 6. Hyponatremia. 7. Diabetes mellitus type 2. 8. History of ongoing nicotine dependence. 9. History of cerebrovascular accident, transient ischemic attack. 10.Hyperlipidemia. 11.History of psoriasis. 12.Obesity with body mass of 37.6. 13.FULL CODE. RECOMMENDATIONS AND DISCUSSION: Recommend to continue current medications, management and symptomatic treatment. Otherwise at this time I would recommend continue with current medications. Increase the dose of Norvasc and lisinopril. Monitor closely. Repeat labs. Cardiology evaluation. Otherwise, stress test followed by carotid endarterectomy. Guarded prognosis. Further recommendations to follow. MMODL / IJN: [id number] /
[2020-04-19 17:06] LABS: Glucose,Whole Blood 190 mg/dL (75-99)
[2020-04-19 20:48] LABS: Glucose,Whole Blood 82 mg/dL (75-99)
[2020-04-20] MEDS ORDERED: AMINOPHYLLINE 500 MG/20 ML VIAL IV PRN (06:00)
[2020-04-20] MEDS ORDERED: CAFFEINE CITRATE 60 MG/3 ML VIAL IV PRN (06:00)
[2020-04-20] MEDS: INSULIN ASPART (NovoLOG) 100 UNIT/ML VIAL SQ SCH ×4 (06:22→22:03)
[2020-04-20] MEDS: PANTOPRAZOLE 40 MG TABLET PO SCH ×2 (06:22→12:20)
[2020-04-20] MEDS: metFORMIN 850 MG TAB PO SCH ×2 (06:22→17:47)
[2020-04-20] MEDS: SODIUM CHLORIDE 0.9% 1,000 ML IV SCH ×3 (06:22→22:45)
[2020-04-20 06:48] LABS: Glucose,Whole Blood 110 mg/dL (75-99)
[2020-04-20] MEDS ORDERED: REGADENOSON 0.4 MG/5 ML SYRINGE IV ONE (07:00)
[2020-04-20] MEDS: ASPIRIN 325 MG TAB PO SCH (09:00)
[2020-04-20] MEDS: ATORVASTATIN 80 MG TAB PO SCH (09:00)
[2020-04-20 10:01] LABS: Basophils # (A) 0.1 k/uL (0-0.2); Basophils % (A) 1 %; Eosinophils # (A) 0.1 k/uL (0-0.7); Eosinophils % (A) 1 %; HCT 46.4 % (39.0-53.0); HGB 16.2 gm/dL (13.0-17.5); Lymphocytes # (A) 1.4 k/uL (1.0-4.8); Lymphocytes % (A) 20 %; MCH 32.7 pg (25.0-35.0); MCHC 34.8 g/dL (31.0-37.0); MCV 93.9 fL (80.0-100.0); Mean Platelet Volume 7.4; Monocytes # (A) 0.5 k/uL (0-1.0); Monocytes % (A) 8 %; Neutrophils # (A) 4.7 k/uL (1.3-7.7); Neutrophils % (A) 68 %; Platelet Count 128 k/uL (150-450); RBC 4.94 m/uL (4.30-5.90); RDW 13.1 % (11.5-15.5)
[2020-04-20 10:13] LABS: African American GFR (CKD) >90 (>60 ml/min/1.73 sqM); Anion Gap 5 mmol/L; Blood Urea Nitrogen 21 mg/dL (9-20); Calcium 9.3 mg/dL (8.4-10.2); Carbon Dioxide 30 mmol/L (22-30); Chloride 105 mmol/L (98-107); Glucose 110 mg/dL (74-99); Non-African American GFR(CKD) >90 (>60 ml/min/1.73 sqM); Potassium 4.6 mmol/L (3.5-5.1); Sodium 140 mmol/L (137-145)
--- NOTE | 2020-04-20 11:06 | NM ---
EXAMINATION TYPE: NM stress lexiscan cardiolite DATE OF EXAM: 04/20/2020 COMPARISON: NONE HISTORY: Chest pain TECHNIQUE: After the intravenous administration of 10.0 mCi Tc 99m Sestamibi - Cardiolite resting SP ECT images acquired 45 minutes post injection. The patient received 0.4mg Lexiscan, 24.8 mCi Tc 99m Sestamibi - Stress images obtained [address] injection FINDINGS: Review of stress and rest SPECT images demonstrates stress-induced reversible ischemia involving the apical lateral and apical inferior myocardium. There is regional hypokinesis and ejection fraction of only 24%. IMPRESSION: 1. Ejection fraction of only 24% with findings compatible with stress-induced reversible ischemia inv olving the apical lateral and inferior myocardium. Report called to the patient's nurse.
--- NOTE | 2020-04-20 11:07 | P.PN ---
Subjective Progress Note Date: 04/20/20 This is a pleasant 55-year-old gentleman with past medical history of TIA, diabetes, hypertension, hyperlipidemia, carotid stenosis, who presented to the hospital with a CVA. Patient was found to have significant right carotid stenosis for which she is scheduled to undergo surgery tomorrow. He is schedul ed today to undergo a Lexiscan stress test. Patient denies any chest discomfort. Blood pressure 124/70 with a heart rate in the 60s, 94% on room air. Blood cell count 7.0, hemoglobin 16.2, platelet count 128. Sodium 140, potassium 4.6, BUN 21, creatinine 0.9. Objective - Vital Signs Vital signs: Vital Signs Temp 97.6 F 04/20/20 03:05 Pulse 65 04/20/20 08:00 Resp 16 04/20/20 08:00 BP 124/71 04/20/20 08:00 Pulse Ox 94 L 04/20/20 08:00 Intake & Output 04/19/20 04/20/20 04/20/20 18:59 06:59 18:59 Intake Total 1110 240 Balance 1110 240 Weight 115.5 kg Intake: Oral 1110 240 Other: Voiding Method Toilet Toilet Toilet # Voids 4 - Exam PHYSICAL EXAMINATION: GENERAL: 45-year-old gentleman in no acute distress at the time of my examination HEENT: Head is atraumatic, normocephalic. Pupils equal, round. Sclera anicteric. Conjunctiva are clear. Mucous membranes of the mouth are moist. Neck is supple. There is no elevated jugular venous pressure. HEART EXAMINATION: Heart S1, S2 normal. No murmur or gallop heard. CHEST EXAMINATION: Lungs are clear to auscultation and precussion. No chest wall tenderness is noted on palpation or with deep breathing. ABDOMEN: Soft, nontender. Bowel sounds are heard. No organomegaly noted. EXTREMITIES: 2+ peripheral pulses with no evidence of peripheral edema and no calf tenderness noted. NEUROLOGIC patient is awake, alert and oriented 3 . - Labs CBC & Chem 7: 04/20/20 08:41 04/20/20 08:41 Labs: Abnormal Lab Results - Last 24 Hours (Table) 04/19/20 04/19/20 04/20/20 Range/Units 11:58 17:04 06:11 Plt Count (150-450) k/uL BUN (9-20) mg/dL Glucose (74-99) mg/dL POC Glucose (mg/dL) 148 H 190 H 110 H (75-99) mg/dL 04/20/20 04/20/20 Range/Units 08:41 08:41 Plt Count 128 L (150-450) k/uL BUN 21 H (9-20) mg/dL Glucose 110 H (74-99) mg/dL POC Glucose (mg/dL) (75-99) mg/dL Assessment and Plan Plan: Assessment and plan #1 acute CVA #2 history of TIA #3 hypertension #4 hyperlipidemia #5 90% right internal carotid artery stenosis #10 history of left carotid endarterectomy #11 nicotine dependence Plan Patient had an echocardiogram with Doppler study performed which revealed an eje ction fraction of 45-50%. He is scheduled today to undergo a Lexiscan stress test today, scheduled for carotid surgery tomorrow with Dr. Nash. DNP note has been reviewed, I agree with a documented findings and plan of care. Patient was seen and examined.
[2020-04-20 12:07] LABS: Glucose,Whole Blood 128 mg/dL (75-99)
[2020-04-20] MEDS ORDERED: ALPRAZolam 0.25 MG TAB PO PRN (12:10)
[2020-04-20] MEDS ORDERED: SODIUM CHLORIDE 0.9% 1,000 ML in EMPTY BAG 1 BAG IV ONE (12:10)
[2020-04-20] MEDS ORDERED: NITROGLYCERIN SL TABS 0.4 MG TAB SUBLINGUAL PRN (12:10)
[2020-04-20] MEDS ORDERED: ASPIRIN 325 MG TAB PO STA (12:10)
[2020-04-20] MEDS ORDERED: ATORVASTATIN 80 MG TAB PO STA (12:10)
[2020-04-20] MEDS ORDERED: ALPRAZolam 0.5 MG TAB PO PRN (12:10)
[2020-04-20] MEDS: lisinopriL 10 MG TAB PO SCH ×2 (12:21→22:02)
[2020-04-20] MEDS: amLODIPine 10 MG TAB PO SCH (12:21)
[2020-04-20] MEDS: predniSONE 20 MG TAB PO SCH (12:21)
[2020-04-20] MEDS: CLOPIDOGREL 75 MG TAB PO SCH (12:21)
[2020-04-20] MEDS: HEPARIN SODIUM,PORCINE 5,000 UNIT/ML 1 ML VIAL SQ SCH ×2 (12:22→22:03)
--- NOTE | 2020-04-20 12:29 | P.GSCN ---
History of Present Illness Consult date: 04/20/20 Reason for Consult: symptomatic right ICA stenosis Requesting physician: Steve Nash History of present illness: This is a pleasant 55 years old male with past medical history of hypertension, hyperlipidemia, and a recent diagnosis of diabetes mellitus approximately 6 months ago, who is a patient of Dr. Hwang. He presented to the emergency department on 04/15/2020 because of dizziness and feeling off balance. He also states he had some left upper and lower extremity weakness. This patient was just admitted and evaluated for similar symptoms the day before. He is currently denying any visual changes, slurred speech, or difficulty swallowing. Denies any right upper extremity or lower extremity weakness, he is right hand dominant. He states he still has some minimal residual weakness in the left upper extremity, however the left lower extremity is improved and is walking without difficulty. He denies any chest pain or shortness of breath. No diarrhea, no change in urine or bowel habits. No fever or vomiting. Patient was recently diagnosed with diabetes mellitus by his PCP approximately 6 months ago and was started on metformin 500 mg twice daily, he has a glucometer checks his sugar at home he states right around 170s. He is a current smoker and admits to smoking 5-6 cigarettes a day. He denies alcohol or illicit drugs. He is currently using Chantix to help with smoking cessation. He has a past history of a left carotid endarterectomy with patch angioplasty that was completed in [address] Nash. The patient states at that time he did suffer a stroke prior to the carotid endarterectomy. In February he underwent a carotid ultrasound as a follow-up, which showed 50-69% stenosis of the right ICA with no significant stenosis in the left ICA. He Underwent a CT angiogram of the head and neck which revealed or the 90% stenosis at the origin of the right internal carotid artery. There is less than 25% stenosis origin of the left internal carotid artery. MRI of the brain showed there were multiple high signal foci on the diffusion images that are predominantly in the right cerebral hemisphere be foci of multiple acute lacunar infarcts. Had numerous white matter high signal foci which could relate to chronic small vessel ischemia or demyelinating disease. He underwent an echocardiogram which showed moderate concentric left ventricular hypertrophy, an EF between 45-50% and negative saline study for PFO, mild aortic stenosis present, mild tricuspid regurgitation present no pericardial effusion. Morning he underwent a Lexiscan stress test revealed an ejection fraction of only 24% with findings compatible with stress-induced reversible ischemia involving the apical lateral and inferior myocardium. Review of Systems A 14 point review systems was completed and all pertinent positives and negatives as stated in the HPI. Past Medical History Past Medical History: CVA/TIA, Diabetes Mellitus, Hyperlipidemia, Hypertension Additional Past Medical History / Comment(s): carotid artery atherosclerosis. psoriasis History of Any Multi-Drug Resistant Organisms: None Reported Past Surgical History: No Surgical Hx Reported Additional Past Surgical History / Comment(s): carotid artery plaque clean out Past Anesthesia/Blood Transfusion Reactions: No Reported Reaction Past Psychological History: No Psychological Hx Reported Smoking Status: Current every day smoker Past Alcohol Use History: Rare Past Drug Use History: None Reported - Past Family History Mother Family Medical History: Diabetes Mellitus Medications and Allergies Home Medications Medication Instructions Recorded Confirmed Type Albuterol Sulfate [Albuterol 1 - 2 puff PO RT-Q4H PRN 04/13/20 04/15/20 History Sulfate Hfa] amLODIPine [Norvasc] 5 mg PO DAILY 04/13/20 04/15/20 History lisinopriL [Zestril] 10 mg PO DAILY 04/13/20 04/15/20 History Aspirin 81 mg PO DAILY #30 chew 04/14/20 04/15/20 Rx Atorvastatin [Lipitor] 80 mg PO DAILY #30 tab 04/14/20 04/15/20 Rx Clopidogrel [Plavix] 75 mg PO DAILY #30 tab 04/14/20 04/15/20 Rx metFORMIN HCL [Glucophage] 850 mg PO BID #60 tab 04/14/20 04/15/20 Rx predniSONE [Deltasone] 20 mg PO DAILY 04/15/20 04/15/20 History Allergies Allergy/AdvReac Type Severity Reaction Status Date / Time shellfish derived [Shellfish] Allergy Severe Rash/Hives Verified 04/15/20 17:10 sulfamethoxazole AdvReac Severe Blistering Verified 04/15/20 17:10 [From Bactrim] all over body (not hives) trimethoprim [From Bactrim] AdvReac Severe Blistering Verified 04/15/20 17:10 all over body (not hives) monosodium glutamate [MSG] AdvReac Nausea & Verified 04/15/20 17:10 Vomiting Surgical - Exam Vital Signs Temp Pulse Resp BP Pulse Ox 98.9 F 92 18 166/88 98 04/15/20 15:39 04/15/20 15:39 04/15/20 15:39 04/15/20 15:39 04/15/20 15:39 General appearance: The patient is alert, oriented, in no acute distress. HET: Head is normocephalic and atraumatic. Pupils are equal and reactive. Oropharynx is clear without lesions. Neck: Supple without lymphadenopathy. Trachea midline. Right carotid bruit noted. Heart: S1 S2. Regular rate and rhythm. Lungs: No crackles or wheezes are heard. Abdomen: Soft, nontender, nondistended. Extremities: Normal skin color and turgor. No cyanosis, rash, ulceration, clubbing, or edema. Radial and pedal pulses are 2/4 bilaterally. Neurological: Left upper and lower extremity with mild weakness. Right upper and lower extremity with good strength and tone. Patient has facial symmetry, tongue protrudes midline, speech is fluent. Patient is alert and oriented [address] angiogram head and neck reviewed CT brain reviewed Echocardiogram reviewed Lexiscan stress test reviewed - Labs 04/20/20 08:41 04/20/20 08:41 Abnormal Lab Results - Last 24 Hours (Table) 04/19/20 04/19/20 04/20/20 Range/Units 11:58 17:04 06:11 Plt Count (150-450) k/uL BUN (9-20) mg/dL Glucose (74-99) mg/dL POC Glucose (mg/dL) 148 H 190 H 110 H (75-99) mg/dL 04/20/20 04/20/20 Range/Units 08:41 08:41 Plt Count 128 L (150-450) k/uL BUN 21 H (9-20) mg/dL Glucose 110 H (74-99) mg/dL POC Glucose (mg/dL) (75-99) mg/dL Diabetes panel 04/20/20 Range/Units 08:41 Sodium 140 (137-145) mmol/L Potassium 4.6 (3.5-5.1) mmol/L Chloride 105 (98-107) mmol/L Carbon Dioxide 30 (22-30) mmol/L BUN 21 H (9-20) mg/dL Creatinine 0.92 (0.66-1.25) mg/dL Glucose 110 H (74-99) mg/dL Calcium 9.3 (8.4-10.2) mg/dL Calcium panel 04/20/20 Range/Units 08:41 Calcium 9.3 (8.4-10.2) mg/dL Pituitary panel 04/20/20 Range/Units 08:41 Sodium 140 (137-145) mmol/L Potassium 4.6 (3.5-5.1) mmol/L Chloride 105 (98-107) mmol/L Carbon Dioxide 30 (22-30) mmol/L BUN 21 H (9-20) mg/dL Creatinine 0.92 (0.66-1.25) mg/dL Glucose 110 H (74-99) mg/dL Calcium 9.3 (8.4-10.2) mg/dL Adrenal panel 04/20/20 Range/Units 08:41 Sodium 140 (137-145) mmol/L Potassium 4.6 (3.5-5.1) mmol/L Chloride 105 (98-107) mmol/L Carbon Dioxide 30 (22-30) mmol/L BUN 21 H (9-20) mg/dL Creatinine 0.92 (0.66-1.25) mg/dL Glucose 110 H (74-99) mg/dL Calcium 9.3 (8.4-10.2) mg/dL Assessment and Plan Assessment: 1. Right symptomatic internal carotid stenosis, 90% stenosis per CTA 2. Left sided weakness and numbness due to subacute stroke 3. History of symptomatic left internal carotid artery status post endarterectomy in 2016 4. Diabetes mellitus 5. Hypertension 6. Hyperlipidemia 7. Tobacco use Plan: Continue with aspirin, Plavix and atorvastatin 80 mg daily. Recommend patient being stabilized from cardiology standpoint, patient is to undergo cardiac cath today. Appreciate further recommendations by cardiology. The plan is for right carotid vascular surgical intervention during this hospitalization. Further discussion with the patient regarding vascular surgical interventions based on cardiology intervention. Recommend smoking cessation, continue chantix. Further recommendations to follow. The above dictated assessment and findings were discussed with Dr. Sandoval. The impression and plan of care have been directed as dictated.
--- NOTE | 2020-04-20 12:44 | EST ---
EXERCISE STRESS AGE: 55 SEX: M HT: 5'10" WT: 254 lbs. PROTOCOL: Lexiscan STAGE: N/A DURATION OF EXERCISE: 6 minutes HEART RATE REST: 69 BLOOD PRESSURE REST: 158/102 MAXIMUM HEART RATE ACHIEVED: 98 MAXIMUM BLOOD PRESSURE: 200/96 85% MPHR: 141 100% MPHR: 166 METS: N/A INDICATIONS: Pre op clearance. CLINICAL INFORMATION: Baseline rhythm is sinus mechanism, rate of 69, normal axis, left ventricular hypertrophy, nonspecific ST-T wave changes. Baseline blood pressure 158/102 mmHg. Patient received injection of Lexiscan. Electrocardiograph monitoring revealed no evidence of diagnostic ischemic ST deviation. Cardiolite was injected per protocol. CONCLUSION: 1. Nondiagnostic electrocardiograph stress testing. 2. Nuclear images will be reported separately. MMODL / IJN: [id number] /
[2020-04-20] MEDS ORDERED: IV FLUID CONTINUATION 950 ML IV ONE (13:38)
[2020-04-20] MEDS ORDERED: LIDOCAINE 1% INJ 10MG/ML (20 ML MDV) ONE (13:57)
[2020-04-20] MEDS ORDERED: MIDAZOLAM 2 MG/2 ML VIAL IV ONE (13:57)
[2020-04-20] MEDS ORDERED: HEPARIN SODIUM 1,000 UN/ML (10ML VL) ONE (13:59)
[2020-04-20] MEDS ORDERED: diphenhydrAMINE 50 MG/ML 1 ML VIAL ONE (13:59)
[2020-04-20] MEDS ORDERED: VERAPAMIL 2.5 MG/ML 2 ML AMP ONE (13:59)
[2020-04-20] MEDS ORDERED: methylPREDNISolone SOD SUCCI 125 MG/2 ML VIAL ONE (13:59)
[2020-04-20] MEDS ORDERED: diphenhydrAMINE 50 MG/ML 1 ML VIAL IVP ONE (13:59)
[2020-04-20] MEDS ORDERED: methylPREDNISolone SOD SUCCI 125 MG/2 ML VIAL IV ONE (14:02)
[2020-04-20] MEDS ORDERED: LIDOCAINE 1% INJ 10MG/ML (20 ML MDV) SQ ONE (14:05)
[2020-04-20] MEDS ORDERED: VERAPAMIL SYRINGE (5 MG/10 ML) INTRAARTER ONE (14:08)
[2020-04-20] MEDS ORDERED: fentaNYL (PF) 50 MCG/ML 2 ML AMP ONE (14:16)
[2020-04-20] MEDS ORDERED: fentaNYL (PF) 50 MCG/ML 2 ML AMP IV ONE (14:17)
[2020-04-20] MEDS ORDERED: IOPAMIDOL-370 125ML BTL INJ ONE (14:38)
[2020-04-20] MEDS ORDERED: IOPAMIDOL-370 50ML BTL INJ ONE (14:39)
[2020-04-20] MEDS ORDERED: RX INFO: IV CONTRAST WAS GIVEN 1 EACH MISC MISCELLANE PRN (14:56)
--- NOTE | 2020-04-20 15:05 | P.CARDCATH ---
Date of Procedure: 04/20/20 Preoperative Diagnosis: Positive stress test, CVA, hypertension, diabetes and carotid disease. Postoperative Diagnosis: 2 vessel coronary artery disease and moderate impaired LV function Description of Procedure: HISTORY: This is a 55-year-old gentleman with history of hypertension, diabetes and carotid disease with previous CVA was admitted to the hospital with left- sided weakness and evidence of significant carotid disease. Patient is being considered for carotid surgery. Patient had a Lexiscan stress test showed reversible ischemia involving the inferoapical wall with impaired LV function. Echocardiogram showed an ejection fraction of 45-50%. Patient is advised to have cardiac catheterization for definitive diagnosis. CONSENT:I have discussed the risks, benefits and alternative therapies for the above-mentioned procedure and for both sedation/analgesia as well as necessary blood product administration, if indicated, as they pertain to this patient. The patient has indicated understanding and acceptance of the risks and procedures discussed. PROCEDURE: Patient was brought to the lab in a fasting state. Patient was given some IV sedation. The right wrist is infiltrated with lidocaine and right radial artery was entered using Seldinger technique. A 6-Uzbek catheter was left in place and selective coronary arteriography was performed. Patient tolerated the procedure well. TR band was applied for hemostasis. No immediate complications were noted and patient was transferred to selective care in a stable condition Conscious Sedation: Versed 1mg Fentanyl 50 g Duration 28minutes HEMODYNAMICS: Aortic pressure is about 130/80. Left ventricular end-diastolic pressure is about 10-15 SELECTIVE CORONARY ARTERIOGRAPHY: LEFT MAIN: Normal length and free of occlusive disease THE LEFT ANTERIOR DESCENDING CORONARY ARTERY: . This a fair caliber vessel giving rise to 2 diagonal branches. The LAD has mild disease in the midportion. No significant focal lesions are noted THE LEFT CIRCUMFLEX AND IS CORONARY ARTERY: . His is a fair caliber vessel giving rise to 2 OM branches. The circumflex is totally occluded closed after the second OM branch. The first OM branch has about 70% stenosis. Second OM branch has about 70% stenosis THE RIGHT CORONARY ARTERY: This is a nondominant vessel with a diffuse disease involving the mid and distal portion with areas of of 80-80% stenosis LEFT VENTRICULOGRAPHY: This revealed moderate to severe hypokinesis of the inferobasal segment with an ejection fraction probably in the range of 40-45% FINAL IMPRESSION: . Coronary artery disease with a total occlusion of the mid circumflex with moderate to severe disease involving the 2 OM branch of the circumflex and also moderate to severe disease involving the distal right coronary artery PLAN: The consult reviewed with Dr. Sears. Because of symptomatic carotid disease, patient is being cleared for surgery with more than average risk. Subsequent carotid surgery, Patient could be considered for further cardiac intervention PROGNOSIS: Guarded
[2020-04-20 16:54] LABS: Glucose,Whole Blood 177 mg/dL (75-99)
--- NOTE | 2020-04-20 17:38 | P.PN ---
Subjective Progress Note Date: 04/20/20 Patient was seen at bedside and stated that he's doing better today compared to his initial presentation. He denies of any new weakness, numbness, visual disturbance. He feels like he is back to his baseline now. The patient was taken for cardiac cath today and shows total occlusion of the mild circumflex with moderate to severe disease involving the 2 OM branch of the circumflex and also moderate to severe disease involving the distal right coronary artery Objective - Vital Signs Vital signs: Vital Signs Temp 97.6 F 04/20/20 03:05 Pulse 87 04/20/20 16:41 Resp 16 04/20/20 16:41 BP 133/69 04/20/20 16:41 Pulse Ox 97 04/20/20 16:41 Intake & Output 04/19/20 04/20/20 04/20/20 18:59 06:59 18:59 Intake Total 1110 340 Output Total 200 Balance 1110 140 Weight 115.5 kg Intake: IV 100 Oral 1110 240 Output: Urine 200 Other: Voiding Method Toilet Toilet Toilet # Voids 4 1 # Bowel Movements 0 - Exam GENERAL: The patient is lying in bed and is not in acute distress. NEUROLOGICAL: Higher mental function: The patient is awake, alert, oriented to self, place and time. Patient is slow to respond. Patient is following simple commands. No aphasia and no neglect. Cranial nerves: The pupils are round, equal and reactive to light and accommodation. Visual barcenas are full to confrontation throughout. Extraocular movement is intact no nystagmus is noted. Facial sensation is normal to touch throughout. The facial strength is normal throughout. Hearing is normal bilaterally to hand rub. Tongue is midline and moved [id number] without any difficulty. No dysarthria is noted. Shoulder shrug is normal bilaterally. Motor: Gait is normal with normal arm swings.The strength is 5- over the left upper extremity. Otherwise 5/5 throughout. Normal tone and bulk. Cerebellum: Normal finger to nose bilaterally. Sensation: Sensation is normal to touch throughout. Reflexes (right/left): 2+ throughout. Plantars are downgoing bilaterally. - Labs CBC & Chem 7: 04/20/20 08:41 04/20/20 08:41 Labs: Abnormal Lab Results - Last 24 Hours (Table) 04/20/20 04/20/20 04/20/20 Range/Units 06:11 08:41 08:41 Plt Count 128 L (150-450) k/uL BUN 21 H (9-20) mg/dL Glucose 110 H (74-99) mg/dL POC Glucose (mg/dL) 110 H (75-99) mg/dL 04/20/20 04/20/20 Range/Units 12:02 16:39 Plt Count (150-450) k/uL BUN (9-20) mg/dL Glucose (74-99) mg/dL POC Glucose (mg/dL) 128 H 177 H (75-99) mg/dL Assessment and Plan Assessment: This is a 55-year-old right-handed gentleman with multiple medical problems that presented to the emergency department on 04/15/2020 for left-sided weakness numbness and unsteady walking. Patient's symptoms started on 04/14/2020 after being discharged from the hospital and he refused to come back to the hospital because he wanted to be with the his family. No IV TPA since the outside the window. Patient had similar presentation per him on 04/12/2020 and I personally and his previous recent ED visit but the patient refused to get any stroke workup and wanted to be with his family. Left-sided weakness and numbness due to subacute stroke over the right hemisphere (has multiple foci over the right hemisphere per MRI Brain). Embolic (seems artery to artery emboli from Right Internal carotid artery). Symptomatic right internal carotid artery (Per CTA 90% stenosis) History of symptomatic left internal carotid artery s/p endarterectomy by Dr. Marcano on 04/11/2016 Coronary artery disease (Cardiac cath today showed total occlusion of the mild circumflex with moderate to severe disease involving the 2 OM branch of the circumflex and also moderate to severe disease involving the distal right coronary artery) Diabetes mellitus Hypertension Hyperlipidemia Tobacco use Plan: Patient is currently on aspirin 325 mg as well as Plavix 75 mg we'll continue dual antiplatelets because of the symptomatic right internal carotid artery. Also continue Lipitor 80 mg daily which also helps out with stabilizing plaque of the carotid stenosis. Dr. Nash vascular surgeon is consulted for the symptomatic right internal carotid artery. I recommend the patient to have intervention especially with acute stroke he had. Patient is scheduled for intervention for the right carotid stenosis on 04/21/2020. I spoke with the solids control technician regarding getting in touch with MRI radiologist in order to correct the note that it's a right hemispheric that's affected and not the left. 2-D echo: Was reported as moderate concentric left ventricular hypertrophy. Ejection fraction between 45-50%. Normal left atrial size. Cardiology is on board. PT/OT and FLOORMAN are consulted. Cardiology is on board and considering cardiac invetervention. We'll defer the medical management such as diabetes, hypertension to the primary team. He was counseled on tobacco cessation The plan was discussed with the patient. Jordan Rock M.D. Neuro-hospitalist Time with Patient: Less than 30
--- NOTE | 2020-04-20 18:06 | PN ---
PROGRESS NOTE DATE OF SERVICE: 04/20/2020 INTERVAL HISTORY: This is a 55-year-old gentleman who was admitted with acute stroke. Also had a Lexiscan stress test which showed ejection fraction only 24% with a findings compatible and stress-induced reversible ischemia involving the apical lateral inferior myocardium. Cardiology is following the patient closely. is tentatively planned tomorrow by Dr. Sandoval, who is covering for Dr. Nash. No chest pain. No palpitations. No fever. PHYSICAL EXAMINATION: GENERAL: Alert and oriented times three. VITAL SIGNS: Pulse 65, blood pressure 124/70, respirations 16, temperature 97.2, pulse ox 94% on room air. HEENT: Normal. NECK: No jugular venous distention. LUNGS: Diminished breath sounds in the bases, a few rhonchi, no crackles. ABDOMEN: Soft. NERVOUS SYSTEM: No focal deficits. LABORATORY DATA: Platelets 128, glucose 128. Other labs are noted. ASSESSMENT: 1. Acute stroke of the right hemisphere causing left-sided weakness. 2. Right internal carotid artery stenosis about 90%. 3. Positive stress test. 4. History of left internal carotid artery endarterectomy. 5. Hypertension. 6. Mild thrombocytopenia. 7. Congestive heart failure with chronic systolic dysfunction ejection fraction 45% to 50%. 8. Hyponatremia. 9. Diabetes mellitus type 2. 10.History of ongoing nicotine dependence. 11.History of cerebrovascular accident and transient ischemic attack. 12.Hyperlipidemia. 13.History of psoriasis. 14.Obesity with body mass index of 37.6. 15.FULL CODE. RECOMMENDATIONS AND DISCUSSION: I recommend to continue current medications. Continue to monitor. Symptomatic treatment. Otherwise at this time, closely follow with Cardiology for possible cardiac catheterization. Otherwise continue the rest of medications. Prognosis guarded because of multiple complex medical issues as listed above. Dr. Hwang will follow tomorrow. MMODL / IJN: [id number] / MTDKiah
[2020-04-20 20:27] LABS: Glucose,Whole Blood 254 mg/dL (75-99)
[2020-04-21] MEDS: SODIUM CHLORIDE 0.9% 1,000 ML IV SCH ×3 (04:46→18:04)
[2020-04-21 06:23] LABS: Glucose,Whole Blood 132 mg/dL (75-99)
[2020-04-21] MEDS: INSULIN ASPART (NovoLOG) 100 UNIT/ML VIAL SQ SCH ×3 (06:33→17:42)
[2020-04-21 08:49] LABS: Basophils % (A) 0 %; Eosinophils % (A) 0 %; HCT 45.6 % (39.0-53.0); HGB 15.5 gm/dL (13.0-17.5); Lymphocytes % (A) 8 %; MCV 94.1 fL (80.0-100.0); Mean Platelet Volume 7.6; Monocytes # (A) 0.7 k/uL (0-1.0); Monocytes % (A) 5 %; Neutrophils # (A) 11.1 k/uL (1.3-7.7); Neutrophils % (A) 85 %; Platelet Count 155 k/uL (150-450); RBC 4.85 m/uL (4.30-5.90)
[2020-04-21] MEDS: metFORMIN 850 MG TAB PO SCH ×2 (08:49→15:00)
[2020-04-21 09:06] LABS: ALT 37 U/L (4-49); AST 18 U/L (17-59); African American GFR (CKD) >90 (>60 ml/min/1.73 sqM); Albumin 4.3 g/dL (3.5-5.0); Alkaline Phosphatase 36 U/L (38-126); Anion Gap 5 mmol/L; Blood Urea Nitrogen 19 mg/dL (9-20); Calcium 9.4 mg/dL (8.4-10.2); Carbon Dioxide 27 mmol/L (22-30); Chloride 107 mmol/L (98-107); Glucose 131 mg/dL (74-99); Non-African American GFR(CKD) >90 (>60 ml/min/1.73 sqM); Potassium 4.3 mmol/L (3.5-5.1); Sodium 139 mmol/L (137-145); Total Bilirubin 0.4 mg/dL (0.2-1.3); Total Protein 6.3 g/dL (6.3-8.2)
[2020-04-21] MEDS: HEPARIN SODIUM,PORCINE 5,000 UNIT/ML 1 ML VIAL SQ SCH (09:34)
[2020-04-21] MEDS: ATORVASTATIN 80 MG TAB PO SCH (09:36)
[2020-04-21] MEDS: amLODIPine 10 MG TAB PO SCH (09:36)
[2020-04-21] MEDS: ASPIRIN 325 MG TAB PO SCH (09:36)
[2020-04-21] MEDS: METOPROLOL TARTRATE 25 MG TAB PO SCH (09:36)
[2020-04-21] MEDS: CLOPIDOGREL 75 MG TAB PO SCH (09:37)
[2020-04-21] MEDS: lisinopriL 10 MG TAB PO SCH (09:37)
[2020-04-21] MEDS: predniSONE 20 MG TAB PO SCH (09:37)
--- NOTE | 2020-04-21 09:43 | P.PN ---
Subjective Progress Note Date: 04/21/20 Principal diagnosis: Acute Stroke of the right hemisphere Right Internal carotid artery stenosis This pleasant 55 male is laying bed comfortably, arouses to verbal command, he is in no acute distress, he states he is going to have his carotid endarterectomy today, he has use of his left side which he states is back to baseline, he is being followed by cardiology closely as he has had a positive stress test and cardiac cath, he has a history of cigarette smoking and has cut the amount of cigarettes smoked down to 5 cigarettes a day and he states he has a goal of cessation Objective - Vital Signs Vital signs: Vital Signs Temp 97.8 F 04/21/20 08:00 Pulse 74 04/21/20 08:00 Resp 14 04/21/20 08:00 BP 141/69 04/21/20 08:00 Pulse Ox 96 04/21/20 08:00 Intake & Output 04/20/20 04/21/20 04/21/20 18:59 06:59 18:59 Intake Total 580 Output Total 200 800 Balance 380 -800 Weight 115.5 kg 115.3 kg Intake: IV 100 Oral 480 Output: Urine 200 800 Other: Voiding Method Toilet Toilet # Voids 1 # Bowel Movements 0 - Constitutional General appearance: Present: mild distress - EENT Eyes: Present: normal appearance Ears: bilateral: normal - Neck Neck: Present: normal ROM - Respiratory Respiratory: bilateral: CTA - Cardiovascular Rhythm: regular Heart sounds: normal: S1, S2 - Gastrointestinal General gastrointestinal: Present: normal bowel sounds, soft - Psychiatric Psychiatric: Present: A&O x's 3, appropriate affect, intact judgment & insight - Labs CBC & Chem 7: 04/21/20 08:12 04/21/20 08:12 Labs: Abnormal Lab Results - Last 24 Hours (Table) 04/20/20 04/20/20 04/20/20 Range/Units 08:41 08:41 12:02 WBC (3.8-10.6) k/uL Plt Count 128 L (150-450) k/uL Neutrophils # (1.3-7.7) k/uL BUN 21 H (9-20) mg/dL Glucose 110 H (74-99) mg/dL POC Glucose (mg/dL) 128 H (75-99) mg/dL Alkaline Phosphatase (38-126) U/L 04/20/20 04/20/20 04/21/20 Range/Units 16:39 20:24 06:19 WBC (3.8-10.6) k/uL Plt Count (150-450) k/uL Neutrophils # (1.3-7.7) k/uL BUN (9-20) mg/dL Glucose (74-99) mg/dL POC Glucose (mg/dL) 177 H 254 H 132 H (75-99) mg/dL Alkaline Phosphatase (38-126) U/L 04/21/20 04/21/20 Range/Units 08:12 08:12 WBC 13.0 H (3.8-10.6) k/uL Plt Count (150-450) k/uL Neutrophils # 11.1 H (1.3-7.7) k/uL BUN (9-20) mg/dL Glucose 131 H (74-99) mg/dL POC Glucose (mg/dL) (75-99) mg/dL Alkaline Phosphatase 36 L (38-126) U/L - Imaging and Cardiology CT Scan - head: report reviewed MRI - head: report reviewed Assessment and Plan Assessment: Acute Stroke of the right hemisphere causing left sided weakness Right Internal Carotid stenosis about 90% Positive stress test History of left internal carotid artery endarterectomy Hypertension Mild Thrombocytopenia Diabetes Mellitus Type II History of Nicotine dependence with current use History of CVA and TIA Hyperlipidemia History of psoriasis Obesity BMI 36.5 Plan: Continue current plan Continue Cardiology consultation for recommendations and treatment plan Continue Vascular consult for recommendation with plan for carotid endarterectomy today
--- NOTE | 2020-04-21 10:59 | P.PN ---
Subjective Progress Note Date: 04/21/20 Patient was seen at bedside and he feels is about the same since yesterday. Denies any new neurological problems. Is schedule for right carotid intervention today. Objective - Vital Signs Vital signs: Vital Signs Temp 97.8 F 04/21/20 08:00 Pulse 74 04/21/20 08:00 Resp 14 04/21/20 08:00 BP 141/69 04/21/20 08:00 Pulse Ox 96 04/21/20 08:00 Intake & Output 04/20/20 04/21/20 04/21/20 18:59 06:59 18:59 Intake Total 580 Output Total 200 800 Balance 380 -800 Weight 115.5 kg 115.3 kg Intake: IV 100 Oral 480 Output: Urine 200 800 Other: Voiding Method Toilet Toilet # Voids 1 1 # Bowel Movements 0 - Exam GENERAL: The patient is lying in bed and is not in acute distress. NEUROLOGICAL: Higher mental function: The patient is awake, alert, oriented to self, place and time. Patient is slow to respond. Patient is following simple commands. No aphasia and no neglect. Cranial nerves: The pupils are round, equal and reactive to light and accommodation. Visual barcenas are full to confrontation throughout. Extraocular movement is intact no nystagmus is noted. Facial sensation is normal to touch throughout. The facial strength is normal throughout. Hearing is normal bilaterally to hand rub. Tongue is midline and moved [id number] without any difficulty. No dysarthria is noted. Shoulder shrug is normal bilaterally. Motor: Gait is normal with normal arm swings.The strength is 5- over the left upper extremity. Otherwise 5/5 throughout. Normal tone and bulk. Cerebellum: Normal finger to nose bilaterally. Sensation: Sensation is normal to touch throughout. Reflexes (right/left): 2+ throughout. Plantars are downgoing bilaterally. - Labs CBC & Chem 7: 04/21/20 08:12 04/21/20 08:12 Labs: Abnormal Lab Results - Last 24 Hours (Table) 04/20/20 04/20/20 04/20/20 Range/Units 12:02 16:39 20:24 WBC (3.8-10.6) k/uL Neutrophils # (1.3-7.7) k/uL Glucose (74-99) mg/dL POC Glucose (mg/dL) 128 H 177 H 254 H (75-99) mg/dL Alkaline Phosphatase (38-126) U/L 04/21/20 04/21/20 04/21/20 Range/Units 06:19 08:12 08:12 WBC 13.0 H (3.8-10.6) k/uL Neutrophils # 11.1 H (1.3-7.7) k/uL Glucose 131 H (74-99) mg/dL POC Glucose (mg/dL) 132 H (75-99) mg/dL Alkaline Phosphatase 36 L (38-126) U/L Assessment and Plan Assessment: This is a 55-year-old right-handed gentleman with multiple medical problems that presented to the emergency department on 04/15/2020 for left-sided weakness numbness and unsteady walking. Patient's symptoms started on 04/14/2020 after being discharged from the hospital and he refused to come back to the hospital because he wanted to be with the his family. No IV TPA since the outside the window. Patient had similar presentation per him on 04/12/2020 and I personally and his previous recent ED visit but the patient refused to get any stroke workup and wanted to be with his family. Left-sided weakness and numbness due to subacute stroke over the right hemisp here (has multiple foci over the right hemisphere per MRI Brain). Embolic (seems artery to artery emboli from Right Internal carotid artery). Symptomatic right internal carotid artery (Per CTA 90% stenosis) History of symptomatic left internal carotid artery s/p endarterectomy by Dr. Marcano on 04/11/2016 Coronary artery disease (Cardiac cath 04/20/20 showed total occlusion of the mild circumflex with moderate to severe disease involving the 2 OM branch of the circumflex and also moderate to severe disease involving the distal right coronary artery) Diabetes mellitus Hypertension Hyperlipidemia Tobacco use Plan: Patient is currently on aspirin 325 mg as well as Plavix 75 mg we'll continue dual antiplatelets because of the symptomatic right internal carotid artery. Also continue Lipitor 80 mg daily which also helps out with stabilizing plaque of the carotid stenosis. Dr. Nash vascular surgeon is consulted for the symptomatic right internal carotid artery. I recommend the patient to have intervention especially with acute stroke he had. Patient is scheduled for intervention for the right carotid stenosis on 04/21/2020. 2-D echo: Was reported as moderate concentric left ventricular hypertrophy. Ejection fraction between 45-50%. Normal left atrial size. Cardiology is on board. PT/OT and INFRASTRUCTURE TECH are consulted. Cardiology is on board and considering cardiac invetervention. We'll defer the medical management such as diabetes, hypertension to the primary team. He was counseled on tobacco cessation The plan was discussed with the patient. Jordan Rock M.D. Neuro-hospitalist Time with Patient: Less than 30
[2020-04-21 11:46] LABS: Glucose,Whole Blood 156 mg/dL (75-99)
--- NOTE | 2020-04-21 13:07 | P.PN ---
Subjective This is a pleasant 55-year-old male past medical history significant for TIA, diabetes mellitus, hypertension, dyslipidemia, peripheral vascular disease who presented to the hospital with an acute CVA. He underwent cardiac catheterization yesterday as part of his preoperative evaluation revealing total occlusion of the mid circumflex with moderate to severe disease involving second OM branch of the circumflex and moderate to severe disease involving the distal RCA. Patient will be considered for further cardiac intervention after carotid surgery. He is seen and examined resting comfortably in bed laying flat no acute distress. He has no symptoms of chest pain, shortness of breath, dizziness or palpitations. Blood pressure 141/74 heart rate 62 afebrile maintaining oxygen saturation on room air. Telemetry data reviewed, WBC 13, hemoglobin 15.5, platelets 155, sodium 139, potassium 4.3, creatinine 0.91. Currently maintained on amlodipine 10 mg daily, aspirin 325 mg daily, atorvastatin 80 mg daily, Plavix 75 mg daily, lisinopril 10 mg twice a day and metoprolol 25 mg twice a day. GENERAL: Well-appearing, well-nourished and in no acute distress. NECK: Supple without JVD or thyromegaly. LUNGS: Breath sounds clear to auscultation bilaterally. Respiration equal and unlabored. No wheezes, rales or rhonchi. HEART: Regular rate and rhythm with soft systolic ejection murmur at the base, no rubs or gallops. S1 and S2 heard. EXTREMITIES: Normal range of motion, no edema. No clubbing or cyanosis. Peripheral pulses intact. ASSESSMENT Acute CVA Peripheral vascular disease status post left carotid endarterectomy Coronary artery disease Ischemic cardiomyopathy Hypertension Dyslipidemia Aortic stenosis Chronic nicotine dependence PLAN Given underlying coronary artery disease he is at increased risk to undergo surgical intervention, however there are no acute contraindications. He denies active chest pain or shortness of breath. He is not having unstable angina or in acute heart failure. Continue current medical regimen. Nurse Practitioner note has been reviewed, I agree with a documented findings and plan of care. Patient was seen and examined. Objective - Vital Signs Vital signs: Vital Signs Temp 98.2 F 04/21/20 12:00 Pulse 62 04/21/20 12:00 Resp 14 04/21/20 12:00 BP 141/74 04/21/20 12:00 Pulse Ox 92 L 04/21/20 12:00 Intake & Output 04/20/20 04/21/20 04/21/20 18:59 06:59 18:59 Intake Total 580 550 Output Total 200 800 Balance 380 -800 550 Weight 115.5 kg 115.3 kg Intake: IV 100 Intake, IV Titration 550 Amount Sodium Chloride 0.9% 1, 550 000 ml @ 75 mls/hr IV . [id number] [facility] Rx#:[id number] Oral 480 Output: Urine 200 800 Other: Voiding Method Toilet Toilet Toilet # Voids 1 1 # Bowel Movements 0 0 - Labs CBC & Chem 7: 04/21/20 08:12 04/21/20 08:12 Labs: Abnormal Lab Results - Last 24 Hours (Table) 04/20/20 04/20/20 04/21/20 Range/Units 16:39 20:24 06:19 WBC (3.8-10.6) k/uL Neutrophils # (1.3-7.7) k/uL Glucose (74-99) mg/dL POC Glucose (mg/dL) 177 H 254 H 132 H (75-99) mg/dL Alkaline Phosphatase (38-126) U/L 04/21/20 04/21/20 04/21/20 Range/Units 08:12 08:12 11:40 WBC 13.0 H (3.8-10.6) k/uL Neutrophils # 11.1 H (1.3-7.7) k/uL Glucose 131 H (74-99) mg/dL POC Glucose (mg/dL) 156 H (75-99) mg/dL Alkaline Phosphatase 36 L (38-126) U/L
[2020-04-21] MEDS ORDERED: LACTATED RINGERS 1,000 ML IV ONE ×3 (16:09→22:36)
[2020-04-21 16:15] LABS: Glucose,Whole Blood 163 mg/dL (75-99)
[2020-04-21] MEDS ORDERED: MIDAZOLAM 2 MG/2 ML VIAL IVP ONE (16:20)
[2020-04-21] MEDS ORDERED: SUCCINYLCHOLINE CHLORIDE 100 MG/5 ML SYR IV ONE (17:34)
[2020-04-21] MEDS ORDERED: HEPARIN SODIUM,PORCINE 10,000 UNIT/ML 1 ML VIAL ONE (17:34)
[2020-04-21] MEDS ORDERED: GLYCOPYRROLATE 0.2 MG/ML 2 ML VIAL ONE (17:34)
[2020-04-21] MEDS ORDERED: PROPOFOL 10 MG/ML 20 ML VIAL IV ONE (17:34)
[2020-04-21] MEDS ORDERED: ROCURONIUM 10 MG/ML (10 ML VIAL) IV ONE (17:34)
[2020-04-21] MEDS ORDERED: fentaNYL (PF) 50 MCG/ML 2 ML AMP ONE (17:34)
[2020-04-21] MEDS ORDERED: NEOSTIGMINE 1 MG/ML 10 ML VIAL ONE (17:34)
[2020-04-21] MEDS ORDERED: ePHEDrine SULFATE/0.9% NACL/PF 50 MG/5 ML SYRINGE IV ONE (17:34)
[2020-04-21] MEDS ORDERED: MIDAZOLAM 2 MG/2 ML VIAL ONE (17:34)
[2020-04-21] MEDS ORDERED: HEPARIN SODIUM,PORCINE 2,000 UNIT in SODIUM CHLORIDE 0.9% 500 ML 1,000 ML IRRIGATION ONE (18:12)
[2020-04-21] MEDS ORDERED: LIDOCAINE 1% INJ 10MG/ML (20 ML MDV) SQ ONE (18:12)
[2020-04-21] MEDS ORDERED: ceFAZolin 2,000 MG in SODIUM CHLORIDE 0.9% 500 ML IRRIGATION ONE (18:14)
[2020-04-21] MEDS ORDERED: GELATIN SPONGE,ABSORB (LARGE) 1 EACH SPONGE TOPICAL ONE (19:33)
[2020-04-21] MEDS ORDERED: THROMBIN (BOVINE) 5,000 UNIT VIAL TOPICAL ONE (19:33)
[2020-04-21] MEDS ORDERED: MAG HYDROX/AL HYDROX/SIMETH 30 ML CUP PO PRN (21:03)
[2020-04-21] MEDS ORDERED: BENZOCAINE/MENTHOL LOZENG 1 EACH LOZENGE MUCOUS MEM PRN (21:03)
[2020-04-21] MEDS ORDERED: TRIMETHOBENZAMIDE 100 MG/ML 2 ML VIAL IM PRN (21:03)
[2020-04-21] MEDS ORDERED: ACETAMINOPHEN TAB 325 MG TAB PO PRN (21:03)
[2020-04-21] MEDS ORDERED: MORPHINE SULFATE 2 MG/ML SYRINGE IVP PRN (21:03)
--- NOTE | 2020-04-21 21:15 | P.OP ---
Description of Procedure: Date of Procedure: 04/21/2020 Preoperative Diagnosis: Symptomatic Right Internal carotid artery stenosis with left sided weakness Postoperative Diagnosis: Same Procedure(s) Performed: Right carotid endarterectomy with patch angioplasty Anesthesia: WARNER Surgeon: Sourav Sandoval Estimated Blood Loss (ml): 50 mL IV Fluids: 1000 mL Urine Output: 230 mL Pathology: Right carotid plaque and cervical lymph node Condition: stable Disposition: PACU Indications for Procedure: 55-year-old gentleman with history of carotid stenosis and previous left carotid endarterectomy and patch angioplasty 4 years ago due to a stroke has been currently being treated in the hospital for recent CVA with left-sided weakness. His symptoms have improved over the last couple days and he underwent full workup which demonstrated 90% stenosis of the right internal carotid artery. During his workup for preop it was noted that he had an abnormal stress test and underwent cardiac catheterization and was deemed moderate risk for surgical intervention. He presents today for carotid endarterectomy. Description of Procedure: After written informed consent was obtained the patient all risks benefits and competitions were described the patient is brought to the operative suite and laid in a supine position. The area of the neck was prepped and draped in usual sterile fashion after appropriate anesthetic was performed per the anesthesiologist. A timeout was performed in normal fashion antibiotics were administered prior to incision. An oblique incision was then created just anterior to the sternocleidomastoid musculature with a 10 blade scalpel and dissection was carried down to the carotid sheath. The carotid sheath was then entered after facial vein was located and suture ligated in normal fashion. The common carotid, internal carotid, external carotid and superior thyroid arteries were located and dissected free in a meticulous fashion circumferentially and controlled with vessel loops. Attention was then placed to locating the vagus nerve as well as hypoglossal nerve which were both spared. Once controlled patient was administe red heparin and followed with ACTs for appropriate heparinization. Once ACT was above 200 the proximal and distal aspects of the dissection were then controlled with vascular clamps. Arteriotomy was then created with 11 blade scalpel and extended with Mayberry Skelton scissors. Utilizing pressure tubing stump pressures were unable to be obtained and were demonstrating trickle backbleeding and therefore shunt was chosen to be placed. The plaque was then feathered at the distal aspect and the internal carotid artery and removed, plaque was hemorrhagic appearing, loose and flaking. The area was copiously irrigated with heparinized saline and all free debris was removed. A 7-0 Prolene suture was then placed to tack the distal aspect of the dissection at the internal carotid artery. A 0.8 x 8 cm bovine pericardial patch was then chosen and patch angioplasty was performed with 6-0 Prolene suture in a running fashion. Prior to last sutures being placed the inflow was released flushing any free debris out of the patch. This was reclamped and the internal carotid artery was released revealing good brisk flow and was once again reclamped. The external carotid and superior thyroid artery were then released followed by the common carotid artery to allow any free debris to be flushed into the external system. Final sutures were placed and secured. Internal carotid artery control was then released. Good pulsatile flow was noted through the patch and a Doppler was utilized demonstrating good brisk flow into the internal, external carotid arteries without any signs of obstruction. Hemostasis was then assured with Gelfoam and thrombin with Surgicel. A 10-Kinyarwanda GINETTE drain was then placed in normal fashion and secured with 3-0 nylon suture. The incision was then closed in a multilayer fashion after hemostasis was assured. The skin was then cleansed and dressings were placed. Patient tolerated the procedure well and was following commands and moving all extremities. Patient was then sent to PACU for recovery.
[2020-04-21] MEDS: HYDROmorphone 0.5 MG/0.5 ML SYRINGE IVP ONE ×2 (21:31→22:18)
[2020-04-22] MEDS: HEPARIN SODIUM,PORCINE 5,000 UNIT/ML 1 ML VIAL SQ SCH ×2 (00:14→09:52)
[2020-04-22] MEDS: METOPROLOL TARTRATE 25 MG TAB PO SCH ×2 (00:15→11:03)
[2020-04-22] MEDS: lisinopriL 10 MG TAB PO SCH ×2 (00:15→11:03)
[2020-04-22] MEDS: INSULIN ASPART (NovoLOG) 100 UNIT/ML VIAL SQ SCH ×2 (00:15→06:07)
[2020-04-22 00:26] LABS: Glucose,Whole Blood 140 mg/dL (75-99)
[2020-04-22] MEDS: SODIUM CHLORIDE 0.9% 1,000 ML IV SCH ×2 (05:00→06:06)
[2020-04-22 05:58] LABS: Glucose,Whole Blood 145 mg/dL (75-99)
[2020-04-22 06:28] VITALS: TEMP 99.1
[2020-04-22] MEDS ORDERED: LORazepam 2 MG/ML INJ IV STA ×2 (07:10→09:35)
--- NOTE | 2020-04-22 08:23 | CT ---
EXAMINATION TYPE: CT brain wo con DATE OF EXAM: 04/22/2020 COMPARISON: 04/15/2020 HISTORY: 55 year-old male confusion, altered mental status status post carotid surgery TECHNIQUE: Examination was done in axial plane without intravenous contrast. Coronal and sagittal r econstructions performed. CT DLP: 1220 mGycm Automated exposure control for dose reduction was used. FINDINGS: Patchy hypodensity within the white matter of the right frontal lobe and right frontoparietal junctio n on 2 less degree within the posterior left frontal lobe have all increased in the interval. Old lacunar infarct left basal ganglia redemonstrated. No evidence for acute intracranial hemorrhage, mass, mass effect, midline shift, or extra-axial fluid collection. No hydrocephalus. No effacement of basal subarachnoid cisterns. Paranasal sinuses and mastoid air cells well pneumatized. Orbits and globes are intact. IMPRESSION: 1. Progressive and increasing patchy and confluent hypodensity within the right greater than left fro ntal lobes and right frontoparietal junction. No evidence for acute intracranial hemorrhage or midlin e shift. Suspect evolving subacute infarcts. MRI can assess for areas of subtle acute ischemia if ind icated. 2. No evidence for acute intracranial hemorrhage, herniation, or midline shift
[2020-04-22 08:47] LABS: Basophils % (A) 0 %; Eosinophils % (A) 0 %; HCT 39.2 % (39.0-53.0); Lymphocytes # (A) 0.9 k/uL (1.0-4.8); Lymphocytes % (A) 9 %; MCH 31.7 pg (25.0-35.0); MCHC 33.1 g/dL (31.0-37.0); MCV 95.8 fL (80.0-100.0); Mean Platelet Volume 7.7; Monocytes # (A) 0.4 k/uL (0-1.0); Monocytes % (A) 4 %; Neutrophils # (A) 8.2 k/uL (1.3-7.7); Neutrophils % (A) 85 %; Platelet Count 131 k/uL (150-450); RBC 4.09 m/uL (4.30-5.90); RDW 13.7 % (11.5-15.5); WBC 9.6 k/uL (3.8-10.6)
--- NOTE | 2020-04-22 08:54 | CT ---
EXAMINATION TYPE: CT angio head neck DATE OF EXAM: 04/22/2020 COMPARISON: 04/15/2020 HISTORY: 55-year-old male confusion, altered mental status post carotid surgery TECHNIQUE: Contiguous axial scanning of the head and neck performed with IV Contrast, patient injecte d with 65 mL of Isovue 370. Coronal/sagittal MIP reconstructions performed. 3-D reconstructions gener ated on a dedicated independent workstation. CT DLP: 999.6 mGycm Automated exposure control for dose reduction was used. FINDINGS: NECK: There are foci of soft tissue air and soft tissue swelling underlying the right side of the neck rela ting to patient's provided history of recent carotid surgery. There is conventional arterial sobriety anatomy. Some motion and beam hardening artifacts at the leve l of the thoracic inlet causing some limitation in assessment of the proximal right common carotid ar jillian. Either motion artifact or a short, 1.1 cm long nonocclusive dissection flap within the upper right co mmon carotid artery, reference axial image 44 and sagittal image 13. As compared to 04/15/2020, the origin of the right common carotid artery is now patent but there kishore ins moderate to severe severe long segment stenosis of the ICA beyond the level of the carotid bulb i nto the petrous segment. In the upper ICA, there is greater than 90% narrowing and diminutive, if any , flow is seen within the petrous segment. The left common and internal carotid arteries show no significant stenosis. Left basilar artery is dominant. There is mild scattered atherosclerotic calcifications throughout. HEAD: Moderate atherosclerotic calcifications within the carotid siphons. This seems to be reconstitution o f contrast within the distal cavernous segment of the right ICA. Some venous contamination is noted a t the level of the carotid terminus on both sides. Extensive motion artifacts along the superior to mid calvarium further limits assessment. Both middle cerebral arteries appear patent. Segmental areas of moderate atherosclerotic narrowing throughout the proximal V4 segment vertebral ar teries. The basilar artery and the posterior cerebral arteries appear patent. IMPRESSION: NECK: 1. INTERVAL SURGERY ALONG THE RIGHT SIDE OF THE NECK WITH ASSOCIATED SOFT TISSUE SWELLING AND FOCI OF AIR. THE ORIGIN OF THE RIGHT ICA IS NOW WIDELY PATENT BUT THERE REMAINS MODERATE TO SEVERE STENOSIS THROUGHOUT THE RIGHT ICA BEYOND THE LEVEL OF THE CAROTID BULB. SEVERE, 90% LONG SEGMENT STENOSIS IN T HE UPPER RIGHT ICA AND LITTLE IF ANY CONTRAST IS IDENTIFIED WITHIN THE PETROUS SEGMENT OF THE RIGHT I CA. 2. EITHER MOTION ARTIFACT OR A 1.1 CM LONG SEGMENT NONOCCLUSIVE DISSECTION FLAP WITHIN THE UPPER RIGH T CCA. REFER TO AXIAL IMAGE 44 AND SAGITTAL IMAGE 13. HEAD: 3. THE RIGHT ICA RECONSTITUTES AT THE DISTAL CAVERNOUS SEGMENT. OTHERWISE, NO LARGE VESSEL INTRACRANI AL ARTERIAL OCCLUSION IS SEEN. 4. MODERATE ATHEROSCLEROTIC CALCIFICATIONS THROUGHOUT THE BILATERAL CAROTID SIPHONS. ADDITIONAL MODER ATE ATHEROSCLEROTIC NARROWING WITHIN THE PROXIMAL V4 SEGMENTS OF THE VERTEBRAL ARTERIES. 5. MOTION LIMITED ASSESSMENT.
[2020-04-22 08:59] LABS: African American GFR (CKD) >90 (>60 ml/min/1.73 sqM); Anion Gap 5 mmol/L; Blood Urea Nitrogen 20 mg/dL (9-20); Calcium 8.6 mg/dL (8.4-10.2); Carbon Dioxide 28 mmol/L (22-30); Chloride 103 mmol/L (98-107); Glucose 142 mg/dL (74-99); Non-African American GFR(CKD) 90 (>60 ml/min/1.73 sqM); Potassium 4.3 mmol/L (3.5-5.1); Sodium 136 mmol/L (137-145)
[2020-04-22] MEDS: metFORMIN 850 MG TAB PO SCH (09:32)
[2020-04-22] MEDS: ATORVASTATIN 80 MG TAB PO SCH (09:43)
[2020-04-22] MEDS: ASPIRIN 325 MG TAB PO SCH (09:43)
[2020-04-22] MEDS: CLOPIDOGREL 75 MG TAB PO SCH (09:43)
[2020-04-22] MEDS: amLODIPine 10 MG TAB PO SCH (11:03)
[2020-04-22] MEDS: PANTOPRAZOLE 40 MG TABLET PO SCH (11:03)
[2020-04-22] MEDS: predniSONE 20 MG TAB PO SCH (11:04)
[2020-04-22 11:47] VITALS: BP 128/68; RESP 16
[2020-04-22 11:56] LABS: Glucose,Whole Blood 130 mg/dL (75-99)
--- NOTE | 2020-04-22 11:59 | P.PN ---
Subjective This is a pleasant 55-year-old male past medical history significant for TIA, diabetes mellitus, hypertension, dyslipidemia, peripheral vascular disease who presented to the hospital with an acute CVA. He underwent cardiac catheterization yesterday as part of his preoperative evaluation revealing total occlusion of the mid circumflex with moderate to severe disease involving second OM branch of the circumflex and moderate to severe disease involving the distal RCA. Patient will be considered for further cardiac intervention after carotid surgery. He is seen and examined resting comfortably in bed laying flat no acute distress. He has no symptoms of chest pain, shortness of breath, dizziness or palpitations. Blood pressure 141/74 heart rate 62 afebrile maintaining oxygen saturation on room air. Telemetry data reviewed, WBC 13, hemoglobin 15.5, platelets 155, sodium 139, potassium 4.3, creatinine 0.91. Currently maintained on amlodipine 10 mg daily, aspirin 325 mg daily, atorvastatin 80 mg daily, Plavix 75 mg daily, lisinopril 10 mg twice a day and metoprolol 25 mg twice a day. 04/22/2020 Pt is seen and examined laying flat in bed with at the bedside. Around 0530 this morning nursing staff noticed a change in his mentation and worsening left sided weakness. CT of the brain revealed progressive and increasing patchy and confluent hypodensity within the right greater than left frontal lobes and right frontoparietal junction. Suspect evolving subacute infarcts. CT angiography revealed the origin of the right ICA widely patent but there remains moderate to severe stenosis throughout the right ICA beyond the level of the carotid bulb it is severe approximately 90%. Possible 1.1 cm long segment nonocclusive dissection flap within the upper right CCA. Blood pressure 128/68 heart rate 78 afebrile and maintaining oxygen saturation on nasal cannula. Laboratory data reviewed, WBC 9.6, hemoglobin 13, platelets 131, sodium 136, potassium 4.3 and creatinine 0.96. GENERAL: in no acute distress. Mentation overall is blunted compared to yesterday. Speech is somewhat garbled but coherent and he is intermittently confused with left sided weakness noted. NECK: Supple without JVD or thyromegaly. LUNGS: Breath sounds clear to auscultation bilaterally. Respiration equal and unlabored. No wheezes, rales or rhonchi. HEART: Regular rate and rhythm with soft systolic ejection murmur at the base, no rubs or gallops. S1 and S2 heard. EXTREMITIES: Normal range of motion, no edema. No clubbing or cyanosis. Peripheral pulses intact. ASSESSMENT Acute CVA Peripheral vascular disease status post left carotid endarterectomy Coronary artery disease Ischemic cardiomyopathy Hypertension Dyslipidemia Aortic stenosis Chronic nicotine dependence PLAN Continue aspirin, atorvastatin and plavix as previously ordered. Tentative plan is for going back to the OR per the at the bedside. Nurse Practitioner note has been reviewed, I agree with a documented findings and plan of care. Patient was seen and examined. Objective - Vital Signs Vital signs: Vital Signs Temp 99.1 F 04/22/20 06:04 Pulse 76 04/22/20 06:04 Resp 20 04/22/20 06:04 BP 136/87 04/22/20 06:04 Pulse Ox 95 04/22/20 06:04 Intake & Output 04/21/20 04/22/20 04/22/20 18:59 06:59 18:59 Intake Total 1602.4 1100 Output Total 595 Balance 1602.4 505 Weight 123 kg Intake: IV 1052.4 1100 Intake, IV Titration 550 Amount Sodium Chloride 0.9% 1, 550 000 ml @ 75 mls/hr IV . [id number] [facility] Rx#:[id number] Output: Drainage 35 Right Lateral Neck 35 Urine 510 Estimated Blood Loss 50 Other: Voiding Method Toilet Urinal # Voids 1 1 # Bowel Movements 0 - Labs CBC & Chem 7: 04/22/20 08:07 04/22/20 08:07 Labs: Abnormal Lab Results - Last 24 Hours (Table) 04/21/20 04/21/20 04/22/20 Range/Units 11:40 16:14 00:14 RBC (4.30-5.90) m/uL Plt Count (150-450) k/uL Neutrophils # (1.3-7.7) k/uL Lymphocytes # (1.0-4.8) k/uL Sodium (137-145) mmol/L Glucose (74-99) mg/dL POC Glucose (mg/dL) 156 H 163 H 140 H (75-99) mg/dL 04/22/20 04/22/20 04/22/20 Range/Units 05:56 08:07 08:07 RBC 4.09 L (4.30-5.90) m/uL Plt Count 131 L (150-450) k/uL Neutrophils # 8.2 H (1.3-7.7) k/uL Lymphocytes # 0.9 L (1.0-4.8) k/uL Sodium 136 L (137-145) mmol/L Glucose 142 H (74-99) mg/dL POC Glucose (mg/dL) 145 H (75-99) mg/dL
--- NOTE | 2020-04-22 12:10 | P.PN ---
Subjective Progress Note Date: 04/22/20 Principal diagnosis: Right symptomatic internal carotid artery stenosis, subacute stroke Patient was seen and examined lying in bed on his left side with his at the bedside. He is postop day #1 for a right carotid endarterectomy with patch angioplasty. The patient had acute changes earlier this morning around 0530- 0600 that included some mental confusion where the patient thought he was at home, that he needed to go to the hospital, and then subsequently that he had b een kidnapped. He has since settled down. He is alert and oriented to person and time, however he still feels like he is at somebody's house. He has left sided upper and lower extremity weakness and is favoring laying on his left side. His speech is fluent and he is following commands, and answering questions appropriately. CT of the brain was ordered which showed progressive and increasing patchy and confluent hypodensity within the right greater than left frontal lobes and right frontoparietal junction. No evidence for acute intracranial hemorrhage or midline shift. Suspect evolving subacute infarcts. MRI can assist for areas of subtle acute ischemia if indicated. There was no evidence for acute intracranial hemorrhage, herniation, or midline shift. A CT angiogram of the head and neck showed interval surgery along the right side of the neck with associated soft tissue swelling and foci of air. Origin of the right ICA is widely patent but there remains moderate to severe stenosis throughout the right ICA beyond the level of the carotid bulb. Severe 90% long segment stenosis in the upper right ICA and little if any contrast identified within the petrous segment of the right ICA. Either motion artifact or 1.1 cm long segment nonocclusive dissection flap within the upper right CCA. The head shows right ICA reconstitutes at the distal cavernous segment otherwise no large vessel intracranial arterial occlusion is seen. Moderate arthrosclerotic calcifications throughout the bilateral carotid siphons. Additional moderate arthrosclerotic narrowing within the proximal V4 segments of the vertebral arteries. Motion limited assessment. Objective - Vital Signs Vital signs: Vital Signs Temp 99.1 F 04/22/20 06:04 Pulse 76 04/22/20 06:04 Resp 20 04/22/20 06:04 BP 136/87 04/22/20 06:04 Pulse Ox 95 04/22/20 06:04 Intake & Output 04/21/20 04/22/20 04/22/20 18:59 06:59 18:59 Intake Total 1602.4 1100 Output Total 595 Balance 1602.4 505 Weight 123 kg Intake: IV 1052.4 1100 Intake, IV Titration 550 Amount Sodium Chloride 0.9% 1, 550 000 ml @ 75 mls/hr IV . [id number] [facility] Rx#:[id number] Output: Drainage 35 Right Lateral Neck 35 Urine 510 Estimated Blood Loss 50 Other: Voiding Method Toilet Urinal # Voids 1 1 # Bowel Movements 0 - Exam General appearance: The patient is alert, oriented to person and time. Laying on left side in bed. HET: Head is normocephalic and atraumatic. Pupils are equal and reactive. Neck: Supple without lymphadenopathy. Trachea midline. Right side of neck with dressing clean dry and intact with GINETTE drain with bloody drainage approximately 20 cc. Heart: S1 S2. Regular rate and rhythm. Lungs: No crackles or wheezes are heard. Abdomen: Soft, nontender, nondistended. Extremities: Normal skin color and turgor. Right upper and lower extremity with good strength and tone 5/5. Right lower extremity with good tone, however mild weakness noted 4/5 compared to right side. Left upper extremity grasp 2/4, patient only able to elevate his arm approximately 10 off the bed. Neurological: Patient has facial asymmetry, left facial drooping, along with unable to raise the left eyebrow. His speech is fluent, he was swallowing without difficulty, he is following commands and responding appropriately. Sensations are intact bilaterally. - Labs CBC & Chem 7: 04/22/20 08:07 04/22/20 08:07 Labs: Abnormal Lab Results - Last 24 Hours (Table) 04/21/20 04/21/20 04/22/20 Range/Units 11:40 16:14 00:14 RBC (4.30-5.90) m/uL Plt Count (150-450) k/uL Neutrophils # (1.3-7.7) k/uL Lymphocytes # (1.0-4.8) k/uL Sodium (137-145) mmol/L Glucose (74-99) mg/dL POC Glucose (mg/dL) 156 H 163 H 140 H (75-99) mg/dL 04/22/20 04/22/20 04/22/20 Range/Units 05:56 08:07 08:07 RBC 4.09 L (4.30-5.90) m/uL Plt Count 131 L (150-450) k/uL Neutrophils # 8.2 H (1.3-7.7) k/uL Lymphocytes # 0.9 L (1.0-4.8) k/uL Sodium 136 L (137-145) mmol/L Glucose 142 H (74-99) mg/dL POC Glucose (mg/dL) 145 H (75-99) mg/dL Assessment and Plan Assessment: 1. Postop day #1 right internal carotid artery endarterectomy with patch angioplasty 2. Severe 90% long segment stenosis in the upper right ICA and little if any contrast is identified within the petrous segment of the right ICA found on CT angiogram of neck 3. Progressive and increasing patchy and confluent hypodensity within the right greater than left frontal lobes and right frontal parietal junction. Suspect evolving subacute infarcts noted on Brain CT 4. Right symptomatic internal carotid stenosis, 90% stenosis per CTA 5. Left sided weakness and numbness due to subacute stroke 6. History of symptomatic left internal carotid artery status post endarterectomy in 2016 7. Diabetes mellitus 8. Hypertension 9. Hyperlipidemia 10. Tobacco use Plan: The patient was discussed with Dr. Sandoval and Dr. Cagle. CT angiogram and CT of brain reviewed by Dr. Cagle and Dr. Sandoval. Will cancel MRI of the brain and transfer to [facility] for further evaluation and treatment with neurovascular interventionalist. Dr. Cagle discuss with the patient and the plan of care. The and patient are in agreement for transfer to higher level acuity of care. The impression and plan of care has been dictated as directed. Dr. Cagle I performed a history and examination of this patient, discussed the same with the dictator. I agree with the dictator's note ,documented as a scribe. Any additional findings or plans will be noted.
--- NOTE | 2020-04-22 12:33 | P.PN ---
Subjective Progress Note Date: 04/22/20 Principal diagnosis: Acute Stroke of the right hemisphere Right Internal carotid artery stenosis Acute altered mental status changes status post right carotid endarterectomy This pleasant 55 male is laying bed with increasing agitation and confusion, he is aware of his name, year, able to state he had a carotid endarterectomy and he is supposed to be in room 372 because he just had surgery and needs to be at the hospital, he is able to read the information board stating the room number and still states he has been kidnapped and is at someone's home and he called 911 dispatch. Contacted vascular and neurology and a CT of brain and CTA of head and neck ordered, notified and was given permission to sit at the bedside to help decrease agitation, discussed plan with staff Objective - Vital Signs Vital signs: Vital Signs Temp 99.1 F 04/22/20 06:04 Pulse 78 04/22/20 11:00 Resp 16 04/22/20 11:00 BP 128/68 04/22/20 11:00 Pulse Ox 96 04/22/20 11:00 Intake & Output 04/21/20 04/22/20 04/22/20 18:59 06:59 18:59 Intake Total 1602.4 1100 Output Total 595 Balance 1602.4 505 Weight 123 kg Intake: IV 1052.4 1100 Intake, IV Titration 550 Amount Sodium Chloride 0.9% 1, 550 000 ml @ 75 mls/hr IV . [id number] [facility] Rx#:[id number] Output: Drainage 35 Right Lateral Neck 35 Urine 510 Estimated Blood Loss 50 Other: Voiding Method Toilet Urinal Urinal # Voids 1 1 # Bowel Movements 0 - Constitutional General appearance: Present: mild distress - EENT Eyes: Present: EOMI Ears: bilateral: normal - Neck Neck: Present: normal ROM - Respiratory Respiratory: bilateral: CTA - Cardiovascular Rhythm: regular Heart sounds: normal: S1, S2 - Gastrointestinal General gastrointestinal: Present: normal bowel sounds - Neurologic Neurologic: Present: CNII-XII intact - Musculoskeletal Musculoskeletal: Present: strength equal bilaterally (physical assessment at 06:50am) - Psychiatric Psychiatric Comment(s): Oriented to name, year, situation, disoriented to place Increased agitation - Labs CBC & Chem 7: 04/22/20 08:07 04/22/20 08:07 Labs: Abnormal Lab Results - Last 24 Hours (Table) 04/21/20 04/22/20 04/22/20 Range/Units 16:14 00:14 05:56 RBC (4.30-5.90) m/uL Plt Count (150-450) k/uL Neutrophils # (1.3-7.7) k/uL Lymphocytes # (1.0-4.8) k/uL Sodium (137-145) mmol/L Glucose (74-99) mg/dL POC Glucose (mg/dL) 163 H 140 H 145 H (75-99) mg/dL 04/22/20 04/22/20 04/22/20 Range/Units 08:07 08:07 11:55 RBC 4.09 L (4.30-5.90) m/uL Plt Count 131 L (150-450) k/uL Neutrophils # 8.2 H (1.3-7.7) k/uL Lymphocytes # 0.9 L (1.0-4.8) k/uL Sodium 136 L (137-145) mmol/L Glucose 142 H (74-99) mg/dL POC Glucose (mg/dL) 130 H (75-99) mg/dL Assessment and Plan Assessment: Acute Stroke of the right hemisphere causing left sided weakness Acute altered mental status changes Right Internal Carotid stenosis about 90% Positive stress test History of left internal carotid artery endarterectomy Hypertension Mild Thrombocytopenia Diabetes Mellitus Type II History of Nicotine dependence with current use History of CVA and TIA Hyperlipidemia History of psoriasis Obesity BMI 36.5 (1) Acute CVA (cerebrovascular accident) Current Visit: Yes Status: Acute Code(s): I63.9 - CEREBRAL INFARCTION, UNSPECIFIED SNOMED Code(s): 162509317 Plan: Continue current plan Continue Cardiology consultation for recommendations and treatment plan Continue Vascular consultation for recommendations and treatment plan Continue Neurology consultation for recommendations and treatment plan Time with Patient: Greater than 30
--- NOTE | 2020-04-22 13:40 | P.TRANS ---
Providers Date of admission: 04/15/20 18:29 Expected date of discharge: 04/22/20 Attending physician: Hung Hwang Consults: 04/15/20 18:29 Consult Physician Routine Consulting Provider: Steve Nash Consult Reason/Comments: carotid artery stenosis Do you want consulting provider notified?: Yes 04/15/20 18:30 Consult Physician Routine Consulting Provider: Jordan Rock Consult Reason/Comments: cva Do you want consulting provider notified?: Yes 04/16/20 07:56 Consult Physician Routine Consulting Provider: Morgan Lema Consult Reason/Comments: cardioembolic stroke Do you want consulting provider notified?: Yes 04/20/20 10:37 Consult Physician Stat Consulting Provider: Sourav Sandoval Consult Reason/Comments: carotid endart Do you want consulting provider notified?: Yes Primary care physician: Hung Hwang - Discharge Diagnosis(es) (1) Acute CVA (cerebrovascular accident) This 55 year old male had presented to the ER after confusion and weakness, he was admitted for acute right hemisphere CVA having a right ICA with 90% stenosis, cardiology, neurology, and vascular surgery were consulted. He had a positive stress test and underwent a right carotid endarterectomy on 04/21/2020, he started to have increased agitation and confusion with increasing left sided weakness hours after procedure, neurology and vascular surgeon notified, CT of brain shows progressive and increasing patchy and confluent hypodensity within the right greater than left frontal lobes and right frontalparietal junction, suspect evolving subacute infarcts, and CTA of head and neck severe 90% long segment stenosis in the upper right ICA and little if any contrast is identified within the petrous segment of the right ICA, Neurology and vascular surgeon aware of the results and has requested him to be transferred. Status: Acute Patient Condition at Discharge: Fair Plan - Transfer Summary Follow up Appointment(s)/Referral(s): Hung Hwang MD [Primary Care Provider] - 1-2 days Discharge Disposition: OTHER INSTITUTION NOT DEFINED
[2020-04-22 19:41] VITALS: PULSE 80
--- NOTE | 2020-04-22 20:58 | P.PN ---
Subjective Progress Note Date: 05/10/20 Yesterday the patient was taken for right carotid endoarectomy. I was perfected served by nurse practioner by primary team in AM today at around 7:15-to 7:30that nurse noticed that the patient was confused and felt that he had left-sided weakness mostly upper extremity and not himself around 5am to 5:30am. Unsure when last normal state. I notified them to get a stat CT of the head as well as a CTA of the head and neck. Upon coming to the hospital on Per the patient's was at bedside she stated that she talked to him via phone past midnight about 12:15 midnight and these seemed to be himself. Objective - Vital Signs Vital signs: Vital Signs Temp 99.1 F 04/22/20 06:04 Pulse 80 04/22/20 12:04 Resp 16 04/22/20 12:04 BP 128/68 04/22/20 12:04 Pulse Ox 95 04/22/20 12:04 Intake & Output 04/22/20 04/22/20 04/23/20 06:59 18:59 06:59 Intake Total 1100 Output Total 595 Balance 505 Weight 123 kg Intake: IV 1100 Output: Drainage 35 Right Lateral Neck 35 Urine 510 Estimated Blood Loss 50 Other: Voiding Method Urinal Urinal # Voids 1 - Exam GENERAL: The patient is lying in bed and seemed restless. NEUROLOGICAL: Higher mental function: The patient is awake, alert, oriented to self and time but not place. He kept on saying I needed to the hospital. Patient was able to identify objects such as pen and watch glasses. Patient is following simple commands. No aphasia and no neglect. Cranial nerves: The pupils are round, equal (3mm) and reactive to light. Visual barcenas are full to confrontation throughout. Extraocular movement is intact no nystagmus is noted. Facial sensation is normal to touch throughout. The facial strength: mild left facial weakness noted. Tongue is midline and moved [id number] without any difficulty. No dysarthria is noted. Motor: Gait is deferred because lack of cooperation..The strength: Patient was able to lift up the left upper x-ray above gravity by kept on the dropping the and at times a fell in bed. And minimal drift on the left lower extremity at. Otherwise able to lift up the right side the without any drift. Normal tone and bulk. Cerebellum: Could not assess because of cooperation. Sensation: Sensation is normal to touch throughout. Reflexes (right/left): 2+ throughout. Plantars are downgoing bilaterally. - Labs CBC & Chem 7: 04/22/20 08:07 04/22/20 08:07 Labs: Abnormal Lab Results - Last 24 Hours (Table) 04/22/20 04/22/20 04/22/20 Range/Units 00:14 05:56 08:07 RBC 4.09 L (4.30-5.90) m/uL Plt Count 131 L (150-450) k/uL Neutrophils # 8.2 H (1.3-7.7) k/uL Lymphocytes # 0.9 L (1.0-4.8) k/uL Sodium (137-145) mmol/L Glucose (74-99) mg/dL POC Glucose (mg/dL) 140 H 145 H (75-99) mg/dL 04/22/20 04/22/20 Range/Units 08:07 11:55 RBC (4.30-5.90) m/uL Plt Count (150-450) k/uL Neutrophils # (1.3-7.7) k/uL Lymphocytes # (1.0-4.8) k/uL Sodium 136 L (137-145) mmol/L Glucose 142 H (74-99) mg/dL POC Glucose (mg/dL) 130 H (75-99) mg/dL Assessment and Plan Assessment: This is a 55-year-old right-handed gentleman with multiple medical problems that presented to the emergency department on 04/15/2020 for left-sided weakness numbness and unsteady walking. Patient's symptoms started on 04/14/2020 after being discharged from the hospital and he refused to come back to the hospital b ecause he wanted to be with the his family. No IV TPA since the outside the window. Patient had similar presentation per him on 04/12/2020 and I personally and his previous recent ED visit but the patient refused to get any stroke workup and wanted to be with his family. Reoccurrence off left sided weakness especially the upper extremity with a facial droop and confusion due to artery to artery emboli (his symptoms were improved prior to surgery). Status postop cardotic endoarectomy day 1--his condition seems worse today set compared to yesterday after the procedure. Left-sided weakness and numbness due to subacute stroke over the right hemisphere (has multiple foci over the right hemisphere per MRI Brain). Embolic (seems artery to artery emboli from Right Internal carotid artery). Symptomatic right internal carotid artery (Per CTA 90% stenosis) status post endarterectomy day 1 History of symptomatic left internal carotid artery s/p endarterectomy by Dr. Marcano on 04/11/2016 Coronary artery disease (Cardiac cath 04/20/20 showed total occlusion of the mild circumflex with moderate to severe disease involving the 2 OM branch of the circumflex and also moderate to severe disease involving the distal right coronary artery) Diabetes mellitus Hypertension Hyperlipidemia Tobacco use Plan: Because of the change in his examination the repeat CT of the head that today and was reported as progressive and increasing patchy and confluent hypodensity within the right greater than the left frontal lobe and the right frontal parietal junction. No evidence for acute intracranial hemorrhage or midline shift. Suspect evolving subacute infarct. MRI can assess the 4 areas of supple acute ischemia if indicated. No evidence for acute intracranial hemorrhage, herniation or midline shift. Regarding the the left frontal lobe and it was not seen the on MRI which is a new finding and possibly the one of the possibilities is from the surgery. CTA of the head 04/22/20 is reported as right ICA reconstituted at the distal cavernous segment. Otherwise no large vessel intracranial artery occlusion is seen. Moderate atherosclerotic calcification throughout the bilateral carotid the siphons. Additional moderate atherosclerotic narrowing within the proximal V4 segment of the vertebral arteries. Motion limited assessment. CTA of the neck 04/22/20 is reported as interval surgery along the right side of the neck with associated soft tissue swelling and foci of air. The origin of the right ICA is now widely patent but there remains moderate to severe stenosis throughout the right ICA beyond the level of carotid bulb. Severe, 90% long segment stenosis in the upper right ICA and little if any contrast identified within the petrous segment of the right ICA. Either motion artifact or a 1.1 cm long segment nonocclusive dissection flap within the upper right CCA. Refer to axial image 44 and the sagittal image 13. Patient is currently on aspirin 325 mg as well as Plavix 75 mg we'll continue dual antiplatelets because of the symptomatic right internal carotid artery. Also continue Lipitor 80 mg daily which also helps out with stabilizing plaque of the carotid stenosis. 2-D echo: Was reported as moderate concentric left ventricular hypertrophy. Ejection fraction between 45-50%. Normal left atrial size. Cardiology is on board. PT/OT and FENCE LABORER are consulted. Cardiology is on board. We'll defer the medical management such as diabetes, hypertension to the primary team. He was counseled on tobacco cessation As a result of that CT of the head and neck findings, CT of the head findings vascular team the transferred him to another facility. The plan was discussed with the patient. Jordan Rock M.D. Neuro-hospitalist
== END 2020-04-22 12:35 | disposition short-term general hospital (02) | DRG 38 ==
LOC: EC 15:37 → 3SCARD 18:29
PROVIDERS: ADMIT Family Medicine; ATTEND Family Medicine
PROC: B2151ZZ Fluoroscopy of Left Heart using Low Osmolar Contrast (ICD-10-PCS; 2020-04-20)
PROC: 4A023N7 Measurement of Cardiac Sampling and Pressure, Left Heart, Percutaneous Approach (ICD-10-PCS; 2020-04-20)
PROC: B2111ZZ Fluoroscopy of Multiple Coronary Arteries using Low Osmolar Contrast (ICD-10-PCS; 2020-04-20)
PROC: 03UK0KZ Supplement Right Internal Carotid Artery with Nonautologous Tissue Substitute, Open Approach (ICD-10-PCS; principal; 2020-04-21 10:15)
PROC: 03CK0ZZ Extirpation of Matter from Right Internal Carotid Artery, Open Approach (ICD-10-PCS; principal; 2020-04-21 10:15)
DX: I63.231 Cerebral infarction due to unspecified occlusion or stenosis of right carotid arteries (principal); G81.94 Hemiplegia, unspecified affecting left nondominant side; E87.1 Hypo-osmolality and hyponatremia; G37.9 Demyelinating disease of central nervous system, unspecified; I50.22 Chronic systolic (congestive) heart failure; D69.6 Thrombocytopenia, unspecified; E11.51 Type 2 diabetes mellitus with diabetic peripheral angiopathy without gangrene; E66.9 Obesity, unspecified; E78.5 Hyperlipidemia, unspecified; F17.210 Nicotine dependence, cigarettes, uncomplicated; I25.82 Chronic total occlusion of coronary artery; I25.10 Atherosclerotic heart disease of native coronary artery without angina pectoris; I25.5 Ischemic cardiomyopathy; I08.2 Rheumatic disorders of both aortic and tricuspid valves; R29.810 Facial weakness; Z68.37 Body mass index [BMI] 37.0-37.9, adult; Z79.02 Long term (current) use of antithrombotics/antiplatelets; Z79.82 Long term (current) use of aspirin; Z79.84 Long term (current) use of oral hypoglycemic drugs; Z79.899 Other long term (current) drug therapy; Z83.3 Family history of diabetes mellitus; L40.9 Psoriasis, unspecified; R45.1 Restlessness and agitation; Z88.2 Allergy status to sulfonamides; Z88.8 Allergy status to other drugs, medicaments and biological substances; Z91.013 Allergy to seafood; Z86.73 Personal history of transient ischemic attack (TIA), and cerebral infarction without residual deficits
CPT/HCPCS: 36415; 70450; 70496; 70498; 70553; 78452; 80048; 80053; 80061; 84443; 84484; 85025; 85610; 85730; 86850; 86900; 86901; 88304; 88305; 88311; 93005; 93017; 93306; 93458; 94640; 96361; 96374; 99291

== ENCOUNTER 2020-10-15 06:07 | Day surgery (SDC) | payer BC ==
[~2020-10-15 06:07] MED LIST changes: +ALPRAZolam 0.25 MG TAB PO PRN; +ALPRAZolam 0.5 MG TAB PO PRN; +ASPIRIN 325 MG TAB PO STA; -ATROPINE SULFATE 0.1 MG/ML 10ML SYRINGE ONE; -DOBUTamine DRIP for NUC MED 500 MG in DEXTROSE/WATER 1 250ML.BAG IV ONE; +NITROGLYCERIN SL TABS 0.4 MG TAB SUBLINGUAL PRN; +SODIUM CHLORIDE 0.9% 1,000 ML in EMPTY BAG 1 BAG IV ONE
[2020-10-15] MEDS ORDERED: ASPIRIN 81 MG ONE (06:22)
[2020-10-15 06:42] LABS: Glucose,Whole Blood 129 mg/dL (75-99)
[2020-10-15] MEDS ORDERED: SODIUM CHLORIDE 0.9% 1,000 ML IV ONE (06:45)
[2020-10-15 06:58] LABS: Basophils % (A) 1 %; Eosinophils # (A) 0.2 k/uL (0-0.7); Eosinophils % (A) 3 %; HCT 39.7 % (39.0-53.0); HGB 13.9 gm/dL (13.0-17.5); Lymphocytes # (A) 1.3 k/uL (1.0-4.8); Lymphocytes % (A) 22 %; MCH 32.6 pg (25.0-35.0); MCV 93.2 fL (80.0-100.0); Mean Platelet Volume 7.3; Monocytes # (A) 0.4 k/uL (0-1.0); Monocytes % (A) 8 %; Neutrophils # (A) 3.6 k/uL (1.3-7.7); Neutrophils % (A) 64 %; Platelet Count 158 k/uL (150-450); RBC 4.26 m/uL (4.30-5.90); RDW 13.9 % (11.5-15.5); WBC 5.6 k/uL (3.8-10.6)
[2020-10-15] MEDS ORDERED: ATORVASTATIN 80 MG TAB PO ONE (07:00)
[2020-10-15] MEDS ORDERED: VERAPAMIL 2.5 MG/ML 2 ML AMP ONE (07:25)
[2020-10-15] MEDS ORDERED: LIDOCAINE 1% INJ 10MG/ML (20 ML MDV) ONE (07:25)
[2020-10-15 07:27] LABS: African American GFR (CKD) >90 (>60 ml/min/1.73 sqM); Anion Gap 7 mmol/L; Blood Urea Nitrogen 20 mg/dL (9-20); Calcium 9.2 mg/dL (8.4-10.2); Carbon Dioxide 26 mmol/L (22-30); Chloride 109 mmol/L (98-107); Glucose 134 mg/dL (74-99); Non-African American GFR(CKD) >90 (>60 ml/min/1.73 sqM); Potassium 4.6 mmol/L (3.5-5.1); Sodium 142 mmol/L (137-145)
[2020-10-15] MEDS ORDERED: fentaNYL (PF) 50 MCG/ML 2 ML AMP ONE (07:43)
[2020-10-15] MEDS ORDERED: MIDAZOLAM 2 MG/2 ML VIAL IV ONE ×2 (07:47→08:20)
[2020-10-15] MEDS ORDERED: HEPARIN SODIUM 1,000 UN/ML (10ML VL) ONE ×2 (07:47→09:05)
[2020-10-15] MEDS ORDERED: LIDOCAINE 1% INJ 10MG/ML (20 ML MDV) SQ ONE (07:48)
[2020-10-15] MEDS ORDERED: fentaNYL (PF) 50 MCG/ML 2 ML AMP IV ONE ×2 (07:48→08:20)
[2020-10-15] MEDS ORDERED: VERAPAMIL SYRINGE (5 MG/10 ML) INTRAARTER ONE (07:52)
[2020-10-15] MEDS ORDERED: HEPARIN SODIUM,PORCINE 30 ML 30 ML ONE (08:25)
[2020-10-15] MEDS ORDERED: IOPAMIDOL-370 125ML BTL INJ ONE (08:32)
[2020-10-15] MEDS ORDERED: IOPAMIDOL-250 100ML BTL INTRAARTER ONE (09:06)
[2020-10-15] MEDS ORDERED: HEPARIN SODIUM 1,000 UN/ML (10ML VL) IV ONE (09:07)
[2020-10-15] MEDS ORDERED: RX INFO: IV CONTRAST WAS GIVEN 1 EACH MISC MISCELLANE PRN (09:19)
[2020-10-15] MEDS ORDERED: ZOLPIDEM 5 MG TAB PO PRN (09:19)
[2020-10-15] MEDS ORDERED: ATROPINE SULFATE 0.1 MG/ML 10ML SYRINGE IV PRN (09:19)
[2020-10-15] MEDS ORDERED: MAG HYDROX/AL HYDROX/SIMETH 30 ML CUP PO PRN (09:19)
[2020-10-15] MEDS: SODIUM CHLORIDE 0.9% 1,000 ML IV SCH (12:38)
--- NOTE | 2020-10-15 13:01 | P.PRCINT ---
Percutaneous Coronary Int. - Percutaneous Coronary Intervention Percutaneous Coronary Intervention: PROCEDURES PERFORMED: Left heart catheterization, bilateral coronary angiography, PCI of mid RCA with a 2.0 x 26mm Hammad JULIA, PCI of OM2 with a 2.5 x 28mm Xience JULIA, iFR mid to distal LAD, PCI mid to distal LAD with a 2.75 x 23mm Xience JULIA INDICATION: CAD, abnormal stress test HISTORY: Patient is a pleasant 55-year-old male with history of coronary artery disease, carotid artery disease, hypertension, hyperlipidemia. He has been noting increased dyspnea on exertion and therefore had stress test performed which showed inferior and lateral ischemia. He also had diagnostic left heart catheterization which showed 80% RCA stenosis, 75% OM 2 stenosis, 100% mid circumflex stenosis, 60-70% mid to distal LAD stenosis with some [id number] and [id number] collaterals. The circumflex appeared dominant with right coronary artery being nondominant however did supply some collaterals to the circumflex territory. Given ongoing class III symptoms of dyspnea on exertion and abnormal stress test, PCI was recommended. CONSENT:I have discussed the risks, benefits and alternative therapies for the above-mentioned procedure and for both sedation/analgesia as well as necessary blood product administration, if indicated, as they pertain to this patient. The patient has indicated understanding and acceptance of the risks and procedures discussed. PROCEDURE: After the risks, benefits and alternatives of the above mentioned procedure explained in detail with the patient, informed consent was obtained. Patient was taken to the catheterization lab and prepped and draped in usual fashion. 1% lidocaine was used to anesthetize the right radial artery. A 6- [place] sheath was placed in the right radial artery using modified Seldinger technique. Left coronary angiography was performed with a 6-[place] CLS 3.5 guide catheter and right coronary angiography was performed with a 6-[place] AL 0.75 guide catheter in various views. The AL1 was inserted into the left ventricle and pressure measurements were obtained. Although the RCA was nondominant it did supply significant collaterals to the circumflex and therefore intervention was recommended. The RCA was engaged with a 6-[place] AL 0.75 guide catheter. A 0.014 BMW wire was advanced into the distal RCA. Balloon angioplasty was performed with a 1.5 x 12 mm balloon. Next a 2.0 x 26 mm Hammad JULIA was deployed in the mid RCA. The proximal portion was postdilated with a 2.5 noncompliant balloon. The wire was pulled and final images were obtained. Intervention there was EV-3 flow with a mid RCA 80% stenosis and post intervention there was EV-3 flow with 0% residual stenosis and no dissection. Next the CLS 3.5 guide was used to engage the left main. A 0.014 the MW wire was advanced into the distal OM 2 branch. Balloon angioplasty was performed with a 2.5 x 12 mm noncompliant balloon. Next a 2.5 x 28 mm Xience JULIA was applied from the proximal to mid OM 2. The wire was pulled and final images were obtained. Per intervention there was a proximal and mid 75% OM 2 stenosis with EV 3 flow and postintervention there was 0% residual stenosis, EV 3 flow and no dissection. Next the decision was made to perform iFR of the LAD. A 0.014 iFR wire was advanced into left main and normalized. This was then advanced into the distal LAD and iFR was performed and was abnormal at 0.79. Therefore balloon angioplasty was performed of the mid to distal LAD with a 2.75 x 15 mm balloon. Next a 2.75 x 23 mm Xience JULIA was deployed. The wire was pulled and final images were obtained. Preintervention there was 60-70% mid LAD stenosis with EV 3 flow and postintervention there was 0% residual stenosis with EV 3 flow and no dissection. The right radial sheath was removed and a TR band was placed with hemostasis achieved. The patient tolerated the procedure well. Patient was transported back to the post catheterization holding area in stable condition. Conscious Sedation: Patient was monitored under the direct supervision of vision of myself for conscious sedation using Versed and fentanyl for a total duration of 76 minutes HEMODYNAMICS: Ao:167/86 LV: 161/3, LVEDP 14mmHg SELECTIVE CORONARY ARTERIOGRAPHY: LEFT MAIN: The left main is a large caliber vessel which bifurcates into the LAD and circumflex. There is no significant stenosis. LEFT ANTERIOR DESCENDING CORONARY ARTERY: LAD is a large caliber vessel which wraps around to the apex. There is a mid to distal LAD 60-70% stenosis and otherwise mild luminal irregularities. There are some left to left collaterals from the LAD to the distal circumflex and what appears to be a left PDA. LEFT CIRCUMFLEX CORONARY ARTERY: Left circumflex is a moderate to large caliber vessel which appears to give off a PDA and is the dominant vessel. OM1 is a small caliber vessel without significant stenosis. OM2 is a moderate caliber vessel with a proximal and mid 75% stenosis. After OM2 the circumflex is 100% occluded and there are left to left collaterals which appear to give rise to a left PDA. RIGHT CORONARY ARTERY: The right coronary artery is a small caliber vessel which gives off an RV branch and has a mid 80% stenosis with right to left collaterals. FINAL IMPRESSION: 1. CAD as described above. 2. Successful PCI of mid RCA with a 2.0 x 26mm [place] JULIA, PCI of OM2 with a 2.5 x 28mm Xience JULIA, iFR mid to distal LAD, PCI mid to distal LAD with a 2.75 x 23mm Xience JULIA PLAN: 1. Aggressive risk factor modification per most recent ACC/AHA guidelines. 2. Continue dual antiplatelets for 12 months. 3. May consider HOTEL OR MOTEL CLEANING SUPERVISOR intervention of circumflex if patient has persistent angina.
[2020-10-15 15:03] VITALS: BMI 31.8
[2020-10-15] MEDS ORDERED: ACETAMINOPHEN TAB 325 MG TAB PO PRN (15:47)
[2020-10-15] MEDS ORDERED: PROPRANOLOL 20 MG TAB PO SCH (21:00)
[2020-10-15] MEDS: FAMOTIDINE 20 MG TAB PO SCH (22:05)
[2020-10-15] MEDS: TICAGRELOR 90 MG TAB PO SCH (22:06)
[2020-10-16 05:48] LABS: Basophils % (A) 1 %; Eosinophils # (A) 0.1 k/uL (0-0.7); Eosinophils % (A) 3 %; HCT 36.6 % (39.0-53.0); HGB 12.9 gm/dL (13.0-17.5); Lymphocytes % (A) 22 %; MCH 33.1 pg (25.0-35.0); MCHC 35.3 g/dL (31.0-37.0); MCV 93.8 fL (80.0-100.0); Mean Platelet Volume 7.6; Monocytes # (A) 0.3 k/uL (0-1.0); Monocytes % (A) 7 %; Neutrophils % (A) 66 %; Platelet Count 123 k/uL (150-450); WBC 4.6 k/uL (3.8-10.6)
[2020-10-16 05:57] LABS: African American GFR (CKD) >90 (>60 ml/min/1.73 sqM); Anion Gap 6 mmol/L; Blood Urea Nitrogen 16 mg/dL (9-20); Calcium 8.8 mg/dL (8.4-10.2); Carbon Dioxide 26 mmol/L (22-30); Chloride 107 mmol/L (98-107); Glucose 101 mg/dL (74-99); Non-African American GFR(CKD) >90 (>60 ml/min/1.73 sqM); Sodium 139 mmol/L (137-145)
[2020-10-16] MEDS: SODIUM CHLORIDE 0.9% 1,000 ML IV SCH (06:54)
[2020-10-16] MEDS: TICAGRELOR 90 MG TAB PO SCH (08:53)
[2020-10-16] MEDS: FAMOTIDINE 20 MG TAB PO SCH (08:54)
[2020-10-16] MEDS ORDERED: DULoxetine HCL 20 MG CAPSULE.DR PO SCH (09:00)
[2020-10-16] MEDS ORDERED: amLODIPine 10 MG TAB PO SCH (09:00)
[2020-10-16] MEDS ORDERED: ASPIRIN 81 MG PO SCH (09:00)
[2020-10-16] MEDS ORDERED: PROPRANOLOL 20 MG TAB PO SCH (09:00)
[2020-10-16] MEDS ORDERED: PROPRANOLOL LA 60 MG CAP.SA.24H PO SCH (09:00)
[2020-10-16] MEDS ORDERED: lisinopriL 20 MG TAB PO SCH (09:00)
[2020-10-16] MEDS ORDERED: ATORVASTATIN 80 MG TAB PO SCH (09:00)
[2020-10-16 15:37] VITALS: BP 152/83; PULSE 57; RESP 16; TEMP 97.7
== END 2020-10-16 15:45 | disposition home or self-care (01) ==
LOC: CATHCVL 06:07 → 6NMEDSUR 11:05 → CATHCVL 10-16 15:45
PROVIDERS: ATTEND Internal Medicine
DX: I25.10 Atherosclerotic heart disease of native coronary artery without angina pectoris (principal); I25.82 Chronic total occlusion of coronary artery; I10 Essential (primary) hypertension; E78.5 Hyperlipidemia, unspecified; Z82.49 Family history of ischemic heart disease and other diseases of the circulatory system; I65.22 Occlusion and stenosis of left carotid artery; F17.210 Nicotine dependence, cigarettes, uncomplicated; E11.9 Type 2 diabetes mellitus without complications; Z20.822 Contact with and (suspected) exposure to COVID-19; Z88.2 Allergy status to sulfonamides; Z88.8 Allergy status to other drugs, medicaments and biological substances
CPT/HCPCS: 94760; 93571; 93458; 80048 ×2; 85025 ×2; 87635; C9600 ×3; C1769 ×2; C1887 ×2; C1894; C1725 ×3; C1874 ×2; J2250; J2001; J3010; J1644 ×2; Q9966; Q9967

== ENCOUNTER 2021-03-16 14:15 | Observation (INO) | payer BC ==
[2021-03-16 14:48] LABS: Basophils # (A) 0.1 k/uL (0-0.2); Basophils % (A) 1 %; Eosinophils # (A) 0.1 k/uL (0-0.7); Eosinophils % (A) 2 %; HCT 41.7 % (39.0-53.0); HGB 14.3 gm/dL (13.0-17.5); Lymphocytes # (A) 1.2 k/uL (1.0-4.8); Lymphocytes % (A) 22 %; MCH 31.4 pg (25.0-35.0); MCHC 34.2 g/dL (31.0-37.0); MCV 91.6 fL (80.0-100.0); Mean Platelet Volume 7.1; Monocytes # (A) 0.3 k/uL (0-1.0); Monocytes % (A) 6 %; Neutrophils # (A) 3.6 k/uL (1.3-7.7); Neutrophils % (A) 67 %; Platelet Count 200 k/uL (150-450); RBC 4.55 m/uL (4.30-5.90); RDW 13.9 % (11.5-15.5); WBC 5.4 k/uL (3.8-10.6)
[2021-03-16 14:57] LABS: INR 0.9 (<1.2); Partial Thromboplastin Time 23.2 sec (22.0-30.0); Prothrombin Time 9.9 sec (9.0-12.0)
[2021-03-16 14:58] LABS: ALT 22 U/L (4-49); AST 19 U/L (17-59); African American GFR (CKD) >90 (>60 ml/min/1.73 sqM); Albumin 4.5 g/dL (3.5-5.0); Alkaline Phosphatase 51 U/L (38-126); Anion Gap 9 mmol/L; Blood Urea Nitrogen 17 mg/dL (9-20); Calcium 9.4 mg/dL (8.4-10.2); Carbon Dioxide 25 mmol/L (22-30); Chloride 106 mmol/L (98-107); Glucose 145 mg/dL (74-99); Magnesium 2.2 mg/dL (1.6-2.3); Non-African American GFR(CKD) >90 (>60 ml/min/1.73 sqM); Potassium 4.5 mmol/L (3.5-5.1); Sodium 140 mmol/L (137-145); Total Bilirubin 0.4 mg/dL (0.2-1.3)
--- NOTE | 2021-03-16 15:26 | XR ---
EXAMINATION TYPE: XR chest 2V DATE OF EXAM: 03/16/2021 COMPARISON: Chest x-ray April 13, 2020 HISTORY: Chest pain. Abnormal EKG. TECHNIQUE: Frontal and lateral views of the chest are obtained. FINDINGS: There is no suspicious focal air space opacity, pleural effusion, or pneumothorax seen. T he cardiac silhouette size is stable and within normal limits. The osseous structures remain intact . IMPRESSION: No acute process. No significant change from prior.
--- NOTE | 2021-03-16 18:28 | ED ---
Recheck HPI - General Chief Complaint: Recheck/Abnormal Lab/Rx Stated Complaint: abnormal EKG Time Seen by Provider: 03/16/21 14:45 Source: patient Mode of arrival: wheelchair Limitations: no limitations - History of Present Illness Initial Comments: Patient sent to the [facility] by his cardiology office. Apparently on arrival today for cardiac rehab he had some T-wave inversions on his EKG which are new. Patient has no chest pain or pressure. He has no tightness in the chest. He has no shortness of breath. He has no palpitations. He has no nausea or vomiting or diaphoresis. He has no swelling in the arms or legs. - Related Data Home Medications Medication Instructions Recorded Confirmed lisinopriL [Zestril] 40 mg PO DAILY 04/13/20 03/16/21 DULoxetine HCL 40 mg PO DAILY 10/13/20 03/16/21 Famotidine [Pepcid] 20 mg PO BID 10/13/20 03/16/21 Ticagrelor [Brilinta] 90 mg PO BID 10/13/20 03/16/21 amLODIPine BESYLATE 10 mg PO DAILY 10/13/20 03/16/21 Amoxicillin/Potassium Clav 1 tab PO BID 03/16/21 03/16/21 [Augmentin 875-125 Tablet] Clobetasol Emollient 0.05% Cream 1 applic TOPICAL BID 03/16/21 03/16/21 DULoxetine HCL [Cymbalta] 60 mg PO DAILY 03/16/21 03/16/21 Previous Rx's Medication Instructions Recorded Aspirin 81 mg PO DAILY #30 chew 04/14/20 Atorvastatin [Lipitor] 80 mg PO DAILY #30 tab 04/14/20 metFORMIN HCL [Glucophage] 850 mg PO BID #60 tab 04/14/20 Allergies Allergy/AdvReac Type Severity Reaction Status Date / Time shellfish derived [Shellfish] Allergy Severe Rash/Hives Verified 03/16/21 15:56 sulfamethoxazole AdvReac Severe Blistering Verified 03/16/21 15:56 [From Bactrim] all over body (not hives) trimethoprim [From Bactrim] AdvReac Severe Blistering Verified 03/16/21 15:56 all over body (not hives) monosodium glutamate [MSG] AdvReac Nausea & Verified 03/16/21 15:56 Vomiting Review of Systems ROS Statement: Those systems with pertinent positive or pertinent negative responses have been documented in the HPI. ROS Other: All systems not noted in ROS Statement are negative. 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 lt carotid endarterectomy. peg tube placed and then removed Past Anesthesia/Blood Transfusion Reactions: No Reported Reaction Past Psychological History: Anxiety Smoking Status: Former smoker Past Alcohol Use History: Rare Past Drug Use History: None Reported - Past Family History Mother Family Medical History: Diabetes Mellitus General Exam Limitations: no limitations General appearance: alert, in no apparent distress Head exam: Present: atraumatic, normocephalic, normal inspection Eye exam: Present: normal appearance, PERRL, EOMI. Absent: scleral icterus, conjunctival injection, periorbital swelling ENT exam: Present: normal exam, mucous membranes moist Neck exam: Present: normal inspection. Absent: tenderness, meningismus, lymphadenopathy Respiratory exam: Present: normal lung sounds bilaterally. Absent: respiratory distress, wheezes, rales, rhonchi, stridor Cardiovascular Exam: Present: regular rate, normal rhythm, normal heart sounds. Absent: systolic murmur, diastolic murmur, rubs, gallop, clicks GI/Abdominal exam: Present: soft, normal bowel sounds. Absent: distended, tenderness, guarding, rebound, rigid Extremities exam: Present: normal inspection, full ROM, normal capillary refill. Absent: tenderness, pedal edema, joint swelling, calf tenderness Back exam: Present: normal inspection Neurological exam: Present: alert, oriented X3, CN II-XII intact Psychiatric exam: Present: normal affect, normal mood Skin exam: Present: warm, dry, intact, normal color. Absent: rash Course Vital Signs 03/16/21 03/16/21 14:17 17:22 Temperature 97.7 F Pulse Rate 80 80 Respiratory 19 18 Rate Blood Pressure 155/83 153/75 O2 Sat by Pulse 96 98 Oximetry Medical Decision Making - Medical Decision Making Patient sent in by his prepared foods production team member for evaluation for new EKG findings. His troponins are negative, his labs are normal. Given that he was sent in by cardiology for a cardiology evaluation he will be admitted for observation, and I will place a consult to cardiology. - Lab Data Result diagrams: 03/16/21 14:37 03/16/21 14:37 Lab Results 03/16/21 03/16/21 03/16/21 Range/Units 14:37 14:37 14:37 WBC 5.4 (3.8-10.6) k/uL RBC 4.55 (4.30-5.90) m/uL Hgb 14.3 (13.0-17.5) gm/dL Hct 41.7 (39.0-53.0) % MCV 91.6 (80.0-100.0) fL MCH 31.4 (25.0-35.0) pg MCHC 34.2 (31.0-37.0) g/dL RDW 13.9 (11.5-15.5) % Plt Count 200 (150-450) k/uL MPV 7.1 Neutrophils % 67 % Lymphocytes % 22 % Monocytes % 6 % Eosinophils % 2 % Basophils % 1 % Neutrophils # 3.6 (1.3-7.7) k/uL Lymphocytes # 1.2 (1.0-4.8) k/uL Monocytes # 0.3 (0-1.0) k/uL Eosinophils # 0.1 (0-0.7) k/uL Basophils # 0.1 (0-0.2) k/uL PT 9.9 (9.0-12.0) sec INR 0.9 (<1.2) APTT 23.2 (22.0-30.0) sec Sodium 140 (137-145) mmol/L Potassium 4.5 (3.5-5.1) mmol/L Chloride 106 (98-107) mmol/L Carbon Dioxide 25 (22-30) mmol/L Anion Gap 9 mmol/L BUN 17 (9-20) mg/dL Creatinine 0.75 (0.66-1.25) mg/dL Est GFR (CKD-EPI)AfAm >90 (>60 ml/min/1.73 sqM) Est GFR (CKD-EPI)NonAf >90 (>60 ml/min/1.73 sqM) Glucose 145 H (74-99) mg/dL Calcium 9.4 (8.4-10.2) mg/dL Magnesium 2.2 (1.6-2.3) mg/dL Total Bilirubin 0.4 (0.2-1.3) mg/dL AST 19 (17-59) U/L ALT 22 (4-49) U/L Alkaline Phosphatase 51 (38-126) U/L Troponin I (0.000-0.034) ng/mL Total Protein 7.0 (6.3-8.2) g/dL Albumin 4.5 (3.5-5.0) g/dL 03/16/21 03/16/21 Range/Units 14:37 16:49 WBC (3.8-10.6) k/uL RBC (4.30-5.90) m/uL Hgb (13.0-17.5) gm/dL Hct (39.0-53.0) % MCV (80.0-100.0) fL MCH (25.0-35.0) pg MCHC (31.0-37.0) g/dL RDW (11.5-15.5) % Plt Count (150-450) k/uL MPV Neutrophils % % Lymphocytes % % Monocytes % % Eosinophils % % Basophils % % Neutrophils # (1.3-7.7) k/uL Lymphocytes # (1.0-4.8) k/uL Monocytes # (0-1.0) k/uL Eosinophils # (0-0.7) k/uL Basophils # (0-0.2) k/uL PT (9.0-12.0) sec INR (<1.2) APTT (22.0-30.0) sec Sodium (137-145) mmol/L Potassium (3.5-5.1) mmol/L Chloride (98-107) mmol/L Carbon Dioxide (22-30) mmol/L Anion Gap mmol/L BUN (9-20) mg/dL Creatinine (0.66-1.25) mg/dL Est GFR (CKD-EPI)AfAm (>60 ml/min/1.73 sqM) Est GFR (CKD-EPI)NonAf (>60 ml/min/1.73 sqM) Glucose (74-99) mg/dL Calcium (8.4-10.2) mg/dL Magnesium (1.6-2.3) mg/dL Total Bilirubin (0.2-1.3) mg/dL AST (17-59) U/L ALT (4-49) U/L Alkaline Phosphatase (38-126) U/L Troponin I <0.012 0.013 (0.000-0.034) ng/mL Total Protein (6.3-8.2) g/dL Albumin (3.5-5.0) g/dL 03/16/21 18:27 Twelve-lead EKG shows ventricular rate 81 bpm, normal MD interval and QRS complex is, no ST elevation or depression, interpreted by me as normal sinus rhythm. Disposition Clinical Impression: Angina of effort Disposition: ADMITTED IP TO THIS HOSP Condition: Fair Referrals: Mili Rivero MD [Primary Care Provider] - 1-2 days
[2021-03-17 07:49] LABS: Glucose,Whole Blood 114 mg/dL (75-99)
[2021-03-17] MEDS ORDERED: DULoxetine HCL 60 MG CAPSULE.DR PO SCH (10:00)
[2021-03-17] MEDS ORDERED: TICAGRELOR 90 MG TAB PO SCH (10:00)
[2021-03-17] MEDS ORDERED: amLODIPine 10 MG TAB PO SCH (10:00)
[2021-03-17] MEDS ORDERED: DULoxetine HCL 20 MG CAPSULE.DR PO SCH (11:00)
[2021-03-17] MEDS ORDERED: lisinopriL 20 MG TAB PO SCH (11:00)
--- NOTE | 2021-03-17 11:15 | P.HPIM ---
History of Present Illness Patient is a pleasant 56-year-old male with a recent the cardiac catheterization and stenting in month of September came in because patient was believed to have some abnormal T-wave changes on the EKG which was new. I reviewed the EKG that was done yesterday patient does have a left ventricular which can cause some nonspecific ST-T wave changes which are not significantly different from the previous EKG. Patient had has troponins negative patient doesn't have any chest pain. Patient is obese and never had any sleep study probably has sleep apnea is trying to lose weight. Patient was unsure whether he had a stress test after the cardiac catheterization his believes he may have had one a month after the catheterization. Cardiology was consulted. REVIEW OF SYSTEMS: CONSTITUTIONAL: No fever, no malaise, no fatigue. HEENT: No recent visual problems or hearing problems. Denied any sore throat. CARDIOVASCULAR: No chest pain, orthopnea, PND, no palpitations, no syncope. PULMONARY: No shortness of breath, no cough, no hemoptysis. GASTROINTESTINAL: No diarrhea, no nausea, no vomiting, no abdominal pain. NEUROLOGICAL: No headaches, no weakness, no numbness. HEMATOLOGICAL: Denies any bleeding or petechiae. GENITOURINARY: Denies any burning micturition, frequency, or urgency. MUSCULOSKELETAL/RHEUMATOLOGICAL: Denies any joint pain, swelling, or any muscle pain. ENDOCRINE: Denies any polyuria or polydipsia. The rest of the 14-point review of systems is negative. PHYSICAL EXAMINATION: GENERAL: The patient is alert and oriented x3, not in any acute distress. Well developed, well nourished. HEENT: Pupils are round and equally reacting to light. EOMI. No scleral icterus. No conjunctival pallor. Normocephalic, atraumatic. No pharyngeal erythema. No thyromegaly. CARDIOVASCULAR: S1 and S2 present. No murmurs, rubs, or gallops. PULMONARY: Chest is clear to auscultation, no wheezing or crackles. ABDOMEN: Soft, nontender, nondistended, normoactive bowel sounds. No palpable organomegaly. MUSCULOSKELETAL: No joint swelling or deformity. EXTREMITIES: No cyanosis, clubbing, or pedal edema. NEUROLOGICAL: Gross neurological examination did not reveal any focal deficits. SKIN: No rashes. Assessment and plan -Concern for some nonspecific ST-T wave changes on the EKG: Cardiology will evaluate the patient considering patient's cardiac history. Further management as per cardiology. Cardiology patient will be discharged today -Carotid artery disease with recent headache ablation patient is on dual antiplatelet therapy high-dose statin and the lisinopril which will be continued -Hypertension and hypertensive heart disease -Depression -Hyperlipidemia -Obesity possibly of sleep apnea DVT prophylaxis: Early ambulation Patient will be discharged today after cardiology evaluation if cleared by cardiology. 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 lt carotid endarterectomy. peg tube placed and then removed Past Anesthesia/Blood Transfusion Reactions: No Reported Reaction Date of Last Stent Placement:: september 2020 Past Psychological History: Anxiety Smoking Status: Former smoker Past Alcohol Use History: Rare Additional Past Alcohol Use History / Comment(s): quit smoking 04/10 Past Drug Use History: None Reported - Past Family History Mother Family Medical History: Diabetes Mellitus Medications and Allergies Home Medications Medication Instructions Recorded Confirmed Type lisinopriL [Zestril] 40 mg PO DAILY 04/13/20 03/16/21 History Aspirin 81 mg PO DAILY #30 chew 04/14/20 03/16/21 Rx Atorvastatin [Lipitor] 80 mg PO DAILY #30 tab 04/14/20 03/16/21 Rx metFORMIN HCL [Glucophage] 850 mg PO BID #60 tab 04/14/20 03/16/21 Rx DULoxetine HCL 40 mg PO DAILY 10/13/20 03/16/21 History Famotidine [Pepcid] 20 mg PO BID 10/13/20 03/16/21 History Ticagrelor [Brilinta] 90 mg PO BID 10/13/20 03/16/21 History amLODIPine BESYLATE 10 mg PO DAILY 10/13/20 03/16/21 History Clobetasol Emollient 0.05% Cream 1 applic TOPICAL BID 03/16/21 03/16/21 History DULoxetine HCL [Cymbalta] 60 mg PO DAILY 03/16/21 03/16/21 History Allergies Allergy/AdvReac Type Severity Reaction Status Date / Time shellfish derived [Shellfish] Allergy Severe Rash/Hives Verified 03/16/21 15:56 sulfamethoxazole AdvReac Severe Blistering Verified 03/16/21 15:56 [From Bactrim] all over body (not hives) trimethoprim [From Bactrim] AdvReac Severe Blistering Verified 03/16/21 15:56 all over body (not hives) monosodium glutamate [MSG] AdvReac Nausea & Verified 03/16/21 15:56 Vomiting Physical Exam Vitals: Vital Signs Temp Pulse Pulse Resp BP BP BP 03/17/21 07:38 97.3 F L 79 18 146/79 03/17/21 01:27 97.8 F 74 16 160/92 03/16/21 19:45 89 23 135/62 03/16/21 17:22 80 18 153/75 03/16/21 14:17 97.7 F 80 19 155/83 Pulse Ox 03/17/21 07:38 97 03/17/21 01:27 92 L 03/16/21 19:45 96 03/16/21 17:22 98 03/16/21 14:17 96 Intake and Output 03/16/21 03/17/21 03/17/21 22:59 06:59 14:59 Other: # Voids 1 Weight 108.862 kg Results CBC & Chem 7: 03/16/21 14:37 03/16/21 14:37 Labs: Abnormal Lab Results - Last 24 Hours (Table) 03/16/21 03/17/21 Range/Units 14:37 07:48 Glucose 145 H (74-99) mg/dL POC Glucose (mg/dL) 114 H (75-99) mg/dL Thrombosis Risk Factor Assmnt - Choose All That Apply Any of the Below Risk Factors Present?: Yes Each Factor Represents 1 point: Age 41-60 years, Obesity (BMI >25) Other Risk Factors: No Other congenital or acquired thrombophilia - If yes, enter type in comment: No Thrombosis Risk Factor Assessment Total Risk Factor Score: 2 Thrombosis Risk Factor Assessment Level: Low Risk
[2021-03-17 11:59] LABS: Glucose,Whole Blood 147 mg/dL (75-99)
[2021-03-17 15:45] VITALS: BP 156/85; PULSE 95; RESP 16; TEMP 97.8
[2021-03-17 17:31] LABS: Glucose,Whole Blood 98 mg/dL (75-99)
[2021-03-17] MEDS ORDERED: FAMOTIDINE 20 MG TAB PO SCH (21:00)
[2021-03-17] MEDS ORDERED: CLOBETASOL PROP 0.05% CR 15GM TOPICAL SCH (21:00)
--- NOTE | 2021-03-17 22:04 | P.DS ---
Providers Date of admission: 03/16/21 19:00 Attending physician: Eva La Primary care physician: [facility] Hospital Course: Final Diagnosis -Concern for some nonspecific ST-T wave changes on the EKG, patient is non symptomatic, stress test completed a few months ago was negative -Carotid artery disease with history of right carotid endartectomy patient is on dual antiplatelet therapy high-dose statin and the lisinopril which will be continued -Coronary artery disease s/p cardiac stenting in September of 2020 - on aspirin and plavix -Hypertension and hypertensive heart disease -Depression -Hyperlipidemia -Diabetes Mellitus type 2 -Obesity possibly of sleep apnea Discharge Disposition Patient was discharged home after echocardiogram to follow-up in the office with Dr Lema. Cardiology consult was placed late in the day today, and cardiology office reviewed stress test. Patient was felt stable for discharge home as troponins were negative and he was symptom free at the time of examination. Hospital Course Patient was admitted to [facility] from cardiac rehab for some possible EKG changes which showed T Wave inversions that appeared new from previous EKGs. Cardiology consult was not placed until later in the day on 03/17/21. Discussed case with cardiology who recommended an echocardiogram, and to follow up in the office with Dr Lema. Consultation was cancelled, and patient can follow up in the cardiology office outpatient. EKG was reviewed and patient does have a left ventricular which can cause some nonspecific ST-T wave changes which are not significantly different from the previous EKG. Lab work this admission is unremarkable, Troponin was negative. COVID PCR was not detected. Patient was symptom free during this admission, and at the time of examination. He denies any chest pain, chest pressure, palpitations, dizziness or lightheadedness. He denies any cough or SOB. Patient has been compliant with his medications. Please see medical H&P for ROS and examination Thank you for allowing us to participate in the care of this patient. Patient Condition at Discharge: Fair Plan - Discharge Summary Discharge Rx Participant: Yes New Discharge Prescriptions: Continue lisinopriL [Zestril] 40 mg PO DAILY Aspirin 81 mg PO DAILY #30 chew metFORMIN HCL [Glucophage] 850 mg PO BID #60 tab Atorvastatin [Lipitor] 80 mg PO DAILY #30 tab Ticagrelor [Brilinta] 90 mg PO BID Famotidine [Pepcid] 20 mg PO BID DULoxetine HCL 40 mg PO DAILY Clobetasol Emollient 0.05% Cream 1 applic TOPICAL BID amLODIPine BESYLATE 10 mg PO DAILY DULoxetine HCL [Cymbalta] 60 mg PO DAILY Discontinued Amoxicillin/Potassium Clav [Augmentin 875-125 Tablet] 1 tab PO BID Discharge Medication List lisinopriL [Zestril] 40 mg PO DAILY 04/13/20 [History] Aspirin 81 mg PO DAILY #30 chew 04/14/20 [Rx] Atorvastatin [Lipitor] 80 mg PO DAILY #30 tab 04/14/20 [Rx] metFORMIN HCL [Glucophage] 850 mg PO BID #60 tab 04/14/20 [Rx] DULoxetine HCL 40 mg PO DAILY 10/13/20 [History] Famotidine [Pepcid] 20 mg PO BID 10/13/20 [History] Ticagrelor [Brilinta] 90 mg PO BID 10/13/20 [History] amLODIPine BESYLATE 10 mg PO DAILY 10/13/20 [History] Clobetasol Emollient 0.05% Cream 1 applic TOPICAL BID 03/16/21 [History] DULoxetine HCL [Cymbalta] 60 mg PO DAILY 03/16/21 [History] Follow up Appointment(s)/Referral(s): Morgan Lema DO [STAFF PHYSICIAN] - 1 Week Mili Rivero MD [Primary Care Provider] - 3 Days Patient Instructions/Handouts: Transthoracic Echocardiogram (GEN) Activity/Diet/Wound Care/Special Instructions: Please schedule appointment with Dr. Lema to follow-up with this next week. Discharge Disposition: HOME SELF-CARE
[2021-03-18] MEDS ORDERED: ATORVASTATIN 80 MG TAB PO SCH (09:00)
[2021-03-18] MEDS ORDERED: ASPIRIN 81 MG PO SCH (09:00)
--- NOTE | 2021-03-18 10:37 | ECHOF ---
Referral Reason:chest pain MEASUREMENTS -------- HEIGHT: 177.8 cm WEIGHT: 108.9 kg BP: RVIDd: 2.8 cm (< 3.3) IVSd: 1.5 cm (0.6 - 1.1) LVIDd: 4.7 cm (3.9 - 5.3) LVPWd: 1.7 cm (0.6 - 1.1) IVSs: 2.0 cm LVIDs: 3.2 cm LVPWs: 1.9 cm LAESV Index (A-L): 18.65 ml/m Ao Diam: 2.9 cm (2.0 - 3.7) AV Cusp: 1.7 cm (1.5 - 2.6) MV EXCURSION: 24.324 mm (> 18.000) MV EF SLOPE: 64 mm/s (70 - 150) EPSS: 0.5 cm MV E Hayder: 0.40 m/s MV DecT: 139 ms MV A Hayder: 0.73 m/s MV E/A Ratio: 0.55 AV maxP.18 mmHg AV meanP.72 mmHg RAP: 5.00 mmHg RVSP: 19.13 mmHg FINDINGS -------- Sinus rhythm. This was a technically difficult study with suboptimal apical views. The left ventricular size is normal. There is moderate concentric left ventricular hypertrophy. O verall left ventricular systolic function is low-normal with, an EF between 50 - 55 %. The right ventricle is normal in size. Normal LA size by volume 22+/-6 ml/m2. The right atrial size is normal. 5.0mg of Lumason was utilized for enhancement of images Interatrial and interventricular septum intact. There is no evidence of aortic regurgitation. There is mild aortic stenosis present. Peak/mean gr adient across the Aortic Valve is 21.18mmHg / 11.72mmHg. No mitral regurgitation. Mild tricuspid regurgitation present. There is no evidence of pulmonary hypertension. The right v entricular systolic pressure, as measured by Doppler, is 19.13mmHg. There is no pulmonic regurgitation present. The aortic root size is normal. IVC Not well visulized. There is no pericardial effusion. CONCLUSIONS -------- 1. The left ventricular size is normal. 2. There is moderate concentric left ventricular hypertrophy. 3. Overall left ventricular systolic function is low-normal with, an EF between 50 - 55 %. 4. There is mild aortic stenosis present. 5. Peak/mean gradient across the Aortic Valve is 21.18mmHg / 11.72mmHg. 6. Mild tricuspid regurgitation present. [employer]ER: Ai Lee RDCS
== END 2021-03-17 18:50 | disposition home or self-care (01) ==
LOC: EC 14:15 → 6NMEDSUR 19:00
PROVIDERS: ADMIT Internal Medicine; ATTEND Internal Medicine
DX: I25.118 Atherosclerotic heart disease of native coronary artery with other forms of angina pectoris (principal); R94.31 Abnormal electrocardiogram [ECG] [EKG]; I11.9 Hypertensive heart disease without heart failure; I65.29 Occlusion and stenosis of unspecified carotid artery; E11.9 Type 2 diabetes mellitus without complications; E78.5 Hyperlipidemia, unspecified; I69.311 Memory deficit following cerebral infarction; I69.398 Other sequelae of cerebral infarction; L40.9 Psoriasis, unspecified; F41.9 Anxiety disorder, unspecified; F32.9 Major depressive disorder, single episode, unspecified; E66.9 Obesity, unspecified; Z68.34 Body mass index [BMI] 34.0-34.9, adult; Z20.822 Contact with and (suspected) exposure to COVID-19; Z79.02 Long term (current) use of antithrombotics/antiplatelets; Z79.82 Long term (current) use of aspirin; Z79.84 Long term (current) use of oral hypoglycemic drugs; Z79.899 Other long term (current) drug therapy; Z88.2 Allergy status to sulfonamides; Z88.1 Allergy status to other antibiotic agents; Z91.02 Food additives allergy status; Z91.013 Allergy to seafood; Z95.5 Presence of coronary angioplasty implant and graft; Z87.891 Personal history of nicotine dependence; Z98.890 Other specified postprocedural states; Z83.3 Family history of diabetes mellitus
CPT/HCPCS: 99285; 36415; 93005; 93306; 80053; 83735; 84484; 85025; 85610; 85730; 87635; 71046; G0378 ×2; Q9950

== ENCOUNTER 2021-04-22 08:24 | Emergency (ER) | payer BC ==
--- NOTE | 2021-04-22 08:57 | ED ---
General Adult HPI - General Chief complaint: Shortness of Breath Stated complaint: SOB Time Seen by Provider: 04/22/21 08:34 Source: patient, RN notes reviewed, old records reviewed Mode of arrival: ambulatory Limitations: no limitations - History of Present Illness Initial comments: 56-year-old male presenting for evaluation of dyspnea, lightheadedness. Patient had coronavirus on April 08. He had recovered from this and return to work. However over the past one week or so he's had persistent dyspnea. No fevers. No central chest pain. He has previous history of CVA with residual left-sided weakness which is unchanged from baseline. No abdominal pain nausea vomiting. No lower extremity pain or swelling. - Related Data Home Medications Medication Instructions Recorded Confirmed lisinopriL [Zestril] 40 mg PO DAILY 04/13/20 04/22/21 Famotidine [Pepcid] 20 mg PO BID 10/13/20 04/22/21 Ticagrelor [Brilinta] 90 mg PO BID 10/13/20 04/22/21 amLODIPine BESYLATE 10 mg PO DAILY 10/13/20 04/22/21 DULoxetine HCL [Cymbalta] 60 mg PO DAILY 03/16/21 04/22/21 Fluconazole [Diflucan] 100 mg PO DAILY 04/22/21 04/22/21 Propranolol LA [Inderal LA] 60 mg PO DAILY 04/22/21 04/22/21 Previous Rx's Medication Instructions Recorded Aspirin 81 mg PO DAILY #30 chew 04/14/20 Atorvastatin [Lipitor] 80 mg PO DAILY #30 tab 04/14/20 metFORMIN HCL [Glucophage] 850 mg PO BID #60 tab 04/14/20 predniSONE 50 mg PO DAILY #5 tab 04/22/21 Allergies Allergy/AdvReac Type Severity Reaction Status Date / Time shellfish derived [Shellfish] Allergy Severe Anaphylaxis Verified 04/22/21 10:17 sulfamethoxazole Allergy Severe Blistering Verified 04/22/21 10:17 [From Bactrim] all over body (not hives) trimethoprim [From Bactrim] Allergy Severe Blistering Verified 04/22/21 10:17 all over body (not hives) monosodium glutamate [MSG] AdvReac Nausea & Verified 04/22/21 10:17 Vomiting Review of Systems ROS Statement: Those systems with pertinent positive or pertinent negative responses have been documented in the HPI. ROS Other: All systems not noted in ROS Statement are negative. 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 lt carotid endarterectomy. peg tube placed and then removed Past Anesthesia/Blood Transfusion Reactions: No Reported Reaction Date of Last Stent Placement:: september 2020 Past Psychological History: Anxiety Smoking Status: Former smoker Past Alcohol Use History: Rare Past Drug Use History: None Reported - Past Family History Mother Family Medical History: Diabetes Mellitus General Exam Limitations: no limitations General appearance: alert, in no apparent distress Head exam: Present: atraumatic, normocephalic Eye exam: Present: normal appearance, PERRL ENT exam: Present: normal exam Neck exam: Present: normal inspection Respiratory exam: Present: normal lung sounds bilaterally. Absent: respiratory distress, wheezes Cardiovascular Exam: Present: regular rate, normal rhythm GI/Abdominal exam: Present: soft. Absent: distended, tenderness, rebound Extremities exam: Present: normal inspection, normal capillary refill. Absent: pedal edema Neurological exam: Present: alert, oriented X3 Psychiatric exam: Present: normal affect, normal mood Skin exam: Present: warm, dry, intact. Absent: cyanosis, diaphoretic Course Vital Signs 04/22/21 04/22/21 04/22/21 08:30 08:41 10:30 Temperature 99 F 97.5 F L Pulse Rate 77 62 Respiratory 22 18 17 Rate Blood Pressure 217/111 188/83 O2 Sat by Pulse 97 98 Oximetry EKG Findings - EKG Comments: EKG Findings:: EKG: Normal sinus rhythm, rate of 75, MA interval 136, QRS duration 106, QTC 462, no ST segment elevation. Medical Decision Making - Medical Decision Making 46-year-old male with dyspnea after Covid. Patient well-appearing, he is hypertensive but this is down trending in the emergency department without treatment. His lungs are clear to auscultation. He has no peripheral edema. He has a negative troponin, negative BNP, negative d-dimer. Chest x-ray is clear. He will be given a referral to pulmonology for likely a postviral dyspnea. Additionally he asks for prescription for his psoriasis which is unrelated to his complaint today. - Lab Data Result diagrams: 04/22/21 09:16 12 09:16 Lab Results 04/22/21 04/22/21 04/22/21 Range/Units 09:16 09:16 09:16 WBC 5.2 (3.8-10.6) k/uL RBC 4.37 (4.30-5.90) m/uL Hgb 13.6 (13.0-17.5) gm/dL Hct 39.6 (39.0-53.0) % MCV 90.6 (80.0-100.0) fL MCH 31.1 (25.0-35.0) pg MCHC 34.3 (31.0-37.0) g/dL RDW 13.8 (11.5-15.5) % Plt Count 206 (150-450) k/uL MPV 7.1 Neutrophils % 73 % Lymphocytes % 15 % Monocytes % 7 % Eosinophils % 2 % Basophils % 1 % Neutrophils # 3.8 (1.3-7.7) k/uL Lymphocytes # 0.8 L (1.0-4.8) k/uL Monocytes # 0.3 (0-1.0) k/uL Eosinophils # 0.1 (0-0.7) k/uL Basophils # 0.1 (0-0.2) k/uL Poikilocytosis Slight PT 10.0 (9.0-12.0) sec INR 0.9 (<1.2) APTT 24.4 (22.0-30.0) sec D-Dimer (<0.60) mg/L FEU Sodium 139 (137-145) mmol/L Potassium 4.3 (3.5-5.1) mmol/L Chloride 106 (98-107) mmol/L Carbon Dioxide 24 (22-30) mmol/L Anion Gap 9 mmol/L BUN 20 (9-20) mg/dL Creatinine 1.01 (0.66-1.25) mg/dL Est GFR (CKD-EPI)AfAm >90 (>60 ml/min/1.73 sqM) Est GFR (CKD-EPI)NonAf 84 (>60 ml/min/1.73 sqM) Glucose 142 H (74-99) mg/dL Plasma Lactic Acid Denis (0.7-2.0) mmol/L Calcium 9.2 (8.4-10.2) mg/dL Magnesium 2.2 (1.6-2.3) mg/dL Total Bilirubin 0.5 (0.2-1.3) mg/dL AST 22 (17-59) U/L ALT 22 (4-49) U/L Alkaline Phosphatase 42 (38-126) U/L Troponin I (0.000-0.034) ng/mL NT-Pro-B Natriuret Pep pg/mL Total Protein 6.9 (6.3-8.2) g/dL Albumin 4.4 (3.5-5.0) g/dL 04/22/21 04/22/21 04/22/21 Range/Units 09:16 09:16 09:16 WBC (3.8-10.6) k/uL RBC (4.30-5.90) m/uL Hgb (13.0-17.5) gm/dL Hct (39.0-53.0) % MCV (80.0-100.0) fL MCH (25.0-35.0) pg MCHC (31.0-37.0) g/dL RDW (11.5-15.5) % Plt Count (150-450) k/uL MPV Neutrophils % % Lymphocytes % % Monocytes % % Eosinophils % % Basophils % % Neutrophils # (1.3-7.7) k/uL Lymphocytes # (1.0-4.8) k/uL Monocytes # (0-1.0) k/uL Eosinophils # (0-0.7) k/uL Basophils # (0-0.2) k/uL Poikilocytosis PT (9.0-12.0) sec INR (<1.2) APTT (22.0-30.0) sec D-Dimer (<0.60) mg/L FEU Sodium (137-145) mmol/L Potassium (3.5-5.1) mmol/L Chloride (98-107) mmol/L Carbon Dioxide (22-30) mmol/L Anion Gap mmol/L BUN (9-20) mg/dL Creatinine (0.66-1.25) mg/dL Est GFR (CKD-EPI)AfAm (>60 ml/min/1.73 sqM) Est GFR (CKD-EPI)NonAf (>60 ml/min/1.73 sqM) Glucose (74-99) mg/dL Plasma Lactic Acid Denis 0.8 (0.7-2.0) mmol/L Calcium (8.4-10.2) mg/dL Magnesium (1.6-2.3) mg/dL Total Bilirubin (0.2-1.3) mg/dL AST (17-59) U/L ALT (4-49) U/L Alkaline Phosphatase (38-126) U/L Troponin I 0.031 (0.000-0.034) ng/mL NT-Pro-B Natriuret Pep 673 pg/mL Total Protein (6.3-8.2) g/dL Albumin (3.5-5.0) g/dL 04/22/21 Range/Units 09:16 WBC (3.8-10.6) k/uL RBC (4.30-5.90) m/uL Hgb (13.0-17.5) gm/dL Hct (39.0-53.0) % MCV (80.0-100.0) fL MCH (25.0-35.0) pg MCHC (31.0-37.0) g/dL RDW (11.5-15.5) % Plt Count (150-450) k/uL MPV Neutrophils % % Lymphocytes % % Monocytes % % Eosinophils % % Basophils % % Neutrophils # (1.3-7.7) k/uL Lymphocytes # (1.0-4.8) k/uL Monocytes # (0-1.0) k/uL Eosinophils # (0-0.7) k/uL Basophils # (0-0.2) k/uL Poikilocytosis PT (9.0-12.0) sec INR (<1.2) APTT (22.0-30.0) sec D-Dimer 0.42 (<0.60) mg/L FEU Sodium (137-145) mmol/L Potassium (3.5-5.1) mmol/L Chloride (98-107) mmol/L Carbon Dioxide (22-30) mmol/L Anion Gap mmol/L BUN (9-20) mg/dL Creatinine (0.66-1.25) mg/dL Est GFR (CKD-EPI)AfAm (>60 ml/min/1.73 sqM) Est GFR (CKD-EPI)NonAf (>60 ml/min/1.73 sqM) Glucose (74-99) mg/dL Plasma Lactic Acid Denis (0.7-2.0) mmol/L Calcium (8.4-10.2) mg/dL Magnesium (1.6-2.3) mg/dL Total Bilirubin (0.2-1.3) mg/dL AST (17-59) U/L ALT (4-49) U/L Alkaline Phosphatase (38-126) U/L Troponin I (0.000-0.034) ng/mL NT-Pro-B Natriuret Pep pg/mL Total Protein (6.3-8.2) g/dL Albumin (3.5-5.0) g/dL Disposition Clinical Impression: Post-viral cough syndrome, COVID-19 Disposition: HOME SELF-CARE Condition: Fair Instructions (If sedation given, give patient instructions): Chronic Bronchitis (ED), Coronavirus Disease 2019 (COVID-19) Prescriptions: predniSONE 50 mg PO DAILY #5 tab Is patient prescribed a controlled substance at d/c from ED?: No Referrals: Mili Rivero MD [Primary Care Provider] - 1-2 days Time of Disposition: 11:15
[2021-04-22 09:34] LABS: Basophils # (A) 0.1 k/uL (0-0.2); Basophils % (A) 1 %; Eosinophils # (A) 0.1 k/uL (0-0.7); Eosinophils % (A) 2 %; HCT 39.6 % (39.0-53.0); HGB 13.6 gm/dL (13.0-17.5); Lymphocytes # (A) 0.8 k/uL (1.0-4.8); Lymphocytes % (A) 15 %; MCH 31.1 pg (25.0-35.0); MCHC 34.3 g/dL (31.0-37.0); MCV 90.6 fL (80.0-100.0); Mean Platelet Volume 7.1; Monocytes # (A) 0.3 k/uL (0-1.0); Monocytes % (A) 7 %; Neutrophils # (A) 3.8 k/uL (1.3-7.7); Neutrophils % (A) 73 %; Platelet Count 206 k/uL (150-450); Poikilocytosis Slight; RBC 4.37 m/uL (4.30-5.90); RDW 13.8 % (11.5-15.5); WBC 5.2 k/uL (3.8-10.6)
[2021-04-22 09:43] LABS: INR 0.9 (<1.2); Partial Thromboplastin Time 24.4 sec (22.0-30.0)
[2021-04-22 09:44] LABS: ALT 22 U/L (4-49); AST 22 U/L (17-59); African American GFR (CKD) >90 (>60 ml/min/1.73 sqM); Albumin 4.4 g/dL (3.5-5.0); Alkaline Phosphatase 42 U/L (38-126); Anion Gap 9 mmol/L; Blood Urea Nitrogen 20 mg/dL (9-20); Calcium 9.2 mg/dL (8.4-10.2); Carbon Dioxide 24 mmol/L (22-30); Chloride 106 mmol/L (98-107); Glucose 142 mg/dL (74-99); Magnesium 2.2 mg/dL (1.6-2.3); Non-African American GFR(CKD) 84 (>60 ml/min/1.73 sqM); Potassium 4.3 mmol/L (3.5-5.1); Sodium 139 mmol/L (137-145); Total Bilirubin 0.5 mg/dL (0.2-1.3); Total Protein 6.9 g/dL (6.3-8.2)
--- NOTE | 2021-04-22 10:02 | XR ---
EXAMINATION TYPE: XR chest 2V DATE OF EXAM: 04/22/2021 COMPARISON: NONE TECHNIQUE: PA and lateral views submitted. HISTORY: Difficulty breathing FINDINGS: The lungs are clear and there is no pneumothorax, pleural effusion, or focal pneumonia. Hypertrophi c and degenerative changes spine. Arthropathy of the shoulders. IMPRESSION: 1. No acute process.
[2021-04-22 10:31] VITALS: BP 188/83; PULSE 62; RESP 17; TEMP 97.5
== END 2021-04-22 11:30 | disposition home or self-care (01) ==
LOC: EC 08:24
DX: U07.1 COVID-19 (principal); I10 Essential (primary) hypertension; E11.9 Type 2 diabetes mellitus without complications; Z86.73 Personal history of transient ischemic attack (TIA), and cerebral infarction without residual deficits; Z87.891 Personal history of nicotine dependence; Z88.2 Allergy status to sulfonamides; Z88.8 Allergy status to other drugs, medicaments and biological substances; Z91.013 Allergy to seafood; Z79.899 Other long term (current) drug therapy; Z79.02 Long term (current) use of antithrombotics/antiplatelets
CPT/HCPCS: 36415; 71046; 80053; 83605; 83735; 83880; 84484; 85025; 85379; 85610; 85730; 93005; 99285

== ENCOUNTER 2022-04-05 17:57 | Emergency (ER) | payer BC ==
[2022-04-05] MEDS ORDERED: SODIUM CHLORIDE 0.9% 1,000 ML IV STA (18:41)
[2022-04-05 19:14] LABS: Basophils # (A) 0.1 k/uL (0-0.2); Basophils % (A) 1 %; Eosinophils # (A) 0.3 k/uL (0-0.7); Eosinophils % (A) 3 %; HCT 43.1 % (39.0-53.0); HGB 15.4 gm/dL (13.0-17.5); Lymphocytes # (A) 1.7 k/uL (1.0-4.8); Lymphocytes % (A) 18 %; MCH 33.2 pg (25.0-35.0); MCHC 35.8 g/dL (31.0-37.0); MCV 92.8 fL (80.0-100.0); Monocytes # (A) 0.5 k/uL (0-1.0); Monocytes % (A) 5 %; Neutrophils # (A) 6.3 k/uL (1.3-7.7); Neutrophils % (A) 70 %; Platelet Count 134 k/uL (150-450); RBC 4.65 m/uL (4.30-5.90)
[2022-04-05 19:23] LABS: Appearance,Urine Clear (Clear); Bilirubin,Urine Negative (Negative); Blood,Urine Negative (Negative); Color,Urine Light Yellow; Glucose,Urine (UA) 4+ (Negative); Ketones,Urine Negative (Negative); Leukocyte Esterase,Urine Negative (Negative); Nitrite,Urine Negative (Negative); Protein,Urine Negative (Negative); Specific Gravity,Urine 1.022 (1.001-1.035); Urobilinogen,Urine <2.0 mg/dL (<2.0)
[2022-04-05 19:24] LABS: Potassium 4.2 mmol/L (3.5-5.1)
[2022-04-05 19:25] LABS: ALT 22 U/L (4-49); AST 15 U/L (17-59); African American GFR (CKD) >90 (>60 ml/min/1.73 sqM); Albumin 4.4 g/dL (3.5-5.0); Alkaline Phosphatase 47 U/L (38-126); Anion Gap 5 mmol/L; Blood Urea Nitrogen 17 mg/dL (9-20); Calcium 8.9 mg/dL (8.4-10.2); Carbon Dioxide 27 mmol/L (22-30); Chloride 106 mmol/L (98-107); Glucose 272 mg/dL (74-99); Lipase 112 U/L (23-300); Non-African American GFR(CKD) >90 (>60 ml/min/1.73 sqM); Sodium 138 mmol/L (137-145); Total Bilirubin 0.4 mg/dL (0.2-1.3); Total Protein 6.3 g/dL (6.3-8.2)
--- NOTE | 2022-04-05 20:57 | CT ---
EXAMINATION TYPE: CT abdomen pelvis w con CT DLP: 2060.3 mGycm, Automated exposure control for dose reduction was used. DATE OF EXAM: 04/05/2022 8:14 PM COMPARISON: 06/27/2018 CLINICAL INDICATION:Male, 57 years old with history of abdominal pain; Abdomen and back pain TECHNIQUE: Axial CT of the abdomen and pelvis. Sagittal and coronal reformats were created on a [employer] workstation. Contrast used:100cc mL of Isovue 300 with IV Contrast, Oral contrast used: without Oral Contrast FINDINGS: LOWER CHEST: Lingula 6 mm pulmonary nodule, left lower lobe 3 mm pulmonary nodule, both stable from 2 019. ABDOMEN LIVER: Hepatic cysts. GALLBLADDER AND BILE DUCTS: Unremarkable. PANCREAS: Unremarkable. SPLEEN: Spleen is enlarged measuring up to 17.0 cm. ADRENAL GLANDS: Unremarkable. KIDNEYS AND URETERS: No evidence of hydronephrosis or renal calculus. The ureters are unremarkable. PELVIS BLADDER: Unremarkable REPRODUCTIVE: Unremarkable. ABDOMEN & PELVIS STOMACH AND BOWEL: No evidence of bowel obstruction. Scattered clonic diverticula present. Appendix i s normal. PERITONEUM: No evidence of pneumoperitoneum or free fluid. VASCULATURE: No evidence of aortic aneurysm. Atherosclerosis of the arterial vasculature. Disc bulgin g at L5-S1 without significant spinal canal stenosis. MUSCULOSKELETAL: No acute osseous abnormalities, mild multilevel disc degeneration changes. LYMPH NODES: No gross evidence for lymphadenopathy. SOFT TISSUE/ABDOMINAL WALL: Fat-containing umbilical hernia. IMPRESSION: 1. No evidence for acute intra-abdominal process. 2. No evidence for intra-abdominal lymphadenopathy. 3. Stable pulmonary nodules back to 2019. 4. Splenomegaly similar back to 2019
[2022-04-05 20:59] VITALS: BP 175/82; PULSE 54; RESP 16; TEMP 98.1
--- NOTE | 2022-04-05 21:32 | ED ---
General Adult HPI - General Chief complaint: Back Pain/Injury Stated complaint: back pain Time Seen by Provider: 04/05/22 18:28 Source: patient Mode of arrival: ambulatory Limitations: no limitations - History of Present Illness Initial comments: Patient states that he has a swollen red area on the right flank. It is warm and tender to the touch. He had some x-rays done. They were negative. He has no fevers or chills. He has no chest pain. He has no shortness of breath. He has no weakness or lightheaded. He has no dizziness. He wasn't doing anything when this began. Does not recall any specific injuries or other problems. He has not had any sick contacts. He has had no muscle strains. - Related Data Home Medications Medication Instructions Recorded Confirmed lisinopriL [Zestril] 40 mg PO DAILY 04/13/20 04/22/21 Famotidine [Pepcid] 20 mg PO BID 10/13/20 04/22/21 Ticagrelor [Brilinta] 90 mg PO BID 10/13/20 04/22/21 amLODIPine BESYLATE 10 mg PO DAILY 10/13/20 04/22/21 DULoxetine HCL [Cymbalta] 60 mg PO DAILY 03/16/21 04/22/21 Fluconazole [Diflucan] 100 mg PO DAILY 04/22/21 04/22/21 Propranolol LA [Inderal LA] 60 mg PO DAILY 04/22/21 04/22/21 Previous Rx's Medication Instructions Recorded Aspirin 81 mg PO DAILY #30 chew 04/14/20 Atorvastatin [Lipitor] 80 mg PO DAILY #30 tab 04/14/20 metFORMIN HCL [Glucophage] 850 mg PO BID #60 tab 04/14/20 predniSONE 50 mg PO DAILY #5 tab 04/22/21 Doxycycline Hyclate 100 mg PO BID 10 Days #20 tab 04/05/22 Allergies Allergy/AdvReac Type Severity Reaction Status Date / Time shellfish derived [Shellfish] Allergy Severe Anaphylaxis Verified 04/05/22 18:07 sulfamethoxazole Allergy Severe Blistering Verified 04/05/22 18:07 [From Bactrim] all over body (not hives) trimethoprim [From Bactrim] Allergy Severe Blistering Verified 04/05/22 18:07 all over body (not hives) monosodium glutamate [MSG] AdvReac Nausea & Verified 04/05/22 18:07 Vomiting Review of Systems ROS Statement: Those systems with pertinent positive or pertinent negative responses have been documented in the HPI. ROS Other: All systems not noted in ROS Statement are negative. 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 lt carotid endarterectomy. peg tube placed and then removed Past Anesthesia/Blood Transfusion Reactions: No Reported Reaction Date of Last Stent Placement:: september 2020 Past Psychological History: Anxiety Smoking Status: Former smoker Past Alcohol Use History: Rare Past Drug Use History: None Reported - Past Family History Mother Family Medical History: Diabetes Mellitus General Exam Limitations: no limitations General appearance: alert, in no apparent distress Head exam: Present: atraumatic, normocephalic, normal inspection Eye exam: Present: normal appearance, PERRL, EOMI. Absent: scleral icterus, conjunctival injection, periorbital swelling ENT exam: Present: normal exam, mucous membranes moist Neck exam: Present: normal inspection. Absent: tenderness, meningismus, lymphadenopathy Respiratory exam: Present: normal lung sounds bilaterally. Absent: respiratory distress, wheezes, rales, rhonchi, stridor Cardiovascular Exam: Present: regular rate, normal rhythm, normal heart sounds. Absent: systolic murmur, diastolic murmur, rubs, gallop, clicks GI/Abdominal exam: Present: soft, normal bowel sounds. Absent: distended, tenderness, guarding, rebound, rigid Extremities exam: Present: normal inspection, full ROM, normal capillary refill. Absent: tenderness, pedal edema, joint swelling, calf tenderness Back exam: Present: normal inspection Neurological exam: Present: alert, oriented X3, CN II-XII intact Psychiatric exam: Present: normal affect, normal mood Skin exam: Present: warm, dry, intact, other (Red tender area on the right flank) Course Vital Signs 04/05/22 04/05/22 18:04 20:59 Temperature 98.3 F 98.1 F Pulse Rate 112 H 54 L Respiratory 20 16 Rate Blood Pressure 143/76 175/82 O2 Sat by Pulse 98 96 Oximetry Medical Decision Making - Medical Decision Making Patient presents with redness and fullness on the right flank. This appears to be an infectious processes. Laboratory studies are interpreted by me is all within normal limits. CT shows no acute process. There is no fluid collection, tissue or any other emergency. I will start him on an appropriate antibiotic. He is stable for discharge. - Lab Data Result diagrams: 04/05/22 18:59 04/05/22 18:59 Lab Results 04/05/22 04/05/22 04/05/22 Range/Units 18:59 18:59 18:59 WBC 9.0 (3.8-10.6) k/uL RBC 4.65 (4.30-5.90) m/uL Hgb 15.4 (13.0-17.5) gm/dL Hct 43.1 (39.0-53.0) % MCV 92.8 (80.0-100.0) fL MCH 33.2 (25.0-35.0) pg MCHC 35.8 (31.0-37.0) g/dL RDW 13.0 (11.5-15.5) % Plt Count 134 L (150-450) k/uL MPV 8.0 Neutrophils % 70 % Lymphocytes % 18 % Monocytes % 5 % Eosinophils % 3 % Basophils % 1 % Neutrophils # 6.3 (1.3-7.7) k/uL Lymphocytes # 1.7 (1.0-4.8) k/uL Monocytes # 0.5 (0-1.0) k/uL Eosinophils # 0.3 (0-0.7) k/uL Basophils # 0.1 (0-0.2) k/uL Sodium 138 (137-145) mmol/L Potassium 4.2 (3.5-5.1) mmol/L Chloride 106 (98-107) mmol/L Carbon Dioxide 27 (22-30) mmol/L Anion Gap 5 mmol/L BUN 17 (9-20) mg/dL Creatinine 0.79 (0.66-1.25) mg/dL Est GFR (CKD-EPI)AfAm >90 (>60 ml/min/1.73 sqM) Est GFR (CKD-EPI)NonAf >90 (>60 ml/min/1.73 sqM) Glucose 272 H (74-99) mg/dL Calcium 8.9 (8.4-10.2) mg/dL Total Bilirubin 0.4 (0.2-1.3) mg/dL AST 15 L (17-59) U/L ALT 22 (4-49) U/L Alkaline Phosphatase 47 (38-126) U/L Total Protein 6.3 (6.3-8.2) g/dL Albumin 4.4 (3.5-5.0) g/dL Lipase 112 (23-300) U/L Urine Color Light Yellow Urine Appearance Clear (Clear) Urine pH 5.0 (5.0-8.0) Ur Specific [place] 1.022 (1.001-1.035) Urine Protein Negative (Negative) Urine Glucose (UA) 4+ H (Negative) Urine Ketones Negative (Negative) Urine Blood Negative (Negative) Urine Nitrite Negative (Negative) Urine Bilirubin Negative (Negative) Urine Urobilinogen <2.0 (<2.0) mg/dL Ur Leukocyte Esterase Negative (Negative) Disposition Clinical Impression: Cellulitis Disposition: HOME SELF-CARE Condition: Good Instructions (If sedation given, give patient instructions): Cellulitis (ED) Prescriptions: Doxycycline Hyclate 100 mg PO BID 10 Days #20 tab Is patient prescribed a controlled substance at d/c from ED?: No Referrals: Mili Rivero MD [Primary Care Provider] - 1-2 days
== END 2022-04-05 21:45 | disposition home or self-care (01) ==
LOC: EC 17:57
DX: L03.90 Cellulitis, unspecified (principal); G45.9 Transient cerebral ischemic attack, unspecified; E11.9 Type 2 diabetes mellitus without complications; E78.5 Hyperlipidemia, unspecified; I10 Essential (primary) hypertension; F41.9 Anxiety disorder, unspecified; Z87.891 Personal history of nicotine dependence; Z79.01 Long term (current) use of anticoagulants; Z79.811 Long term (current) use of aromatase inhibitors; Z79.899 Other long term (current) drug therapy; Z79.82 Long term (current) use of aspirin; Z79.84 Long term (current) use of oral hypoglycemic drugs; Z91.013 Allergy to seafood; Z91.018 Allergy to other foods; Z88.2 Allergy status to sulfonamides
CPT/HCPCS: 36415; 80053; 83690; 85025; 81003; 74177; 99284; 96360; Q9967

== ENCOUNTER → 2022-08-16 | Outpatient (CLI) | payer BC ==
--- NOTE | 2022-08-16 08:11 | CTL ---
EXAMINATION TYPE: CT Low Dose Lung DATE OF EXAM ORDERED: 08/16/2022 COMPARISON: None HISTORY: . Low Dose CT Lung Screening CT DLP: 144.[address] CTDI: 4.30 mGy IV CONTRAST USED: None. SCREENING VISIT: First visit COMPARISON: None. TECHNIQUE: Low dose computed tomography scan was performed through the chest at 1 millimeter thick se ctions and reconstructed images in the coronal plane at [address] DIAGNOSTIC QUALITY: Satisfactory FINDINGS: LUNG NODULES: 3 mm pulmonary nodule left lower lobe image 265 sequence 3. 6.4 mm pulmonary nodule left upper lobe solid in appearance image 149 sequence 3. 4 mm pulmonary n odule solid in appearance right upper lobe 156 sequence 3. LUNGS: COPD: Severity: Mild Fibrosis: Severity:None Lymph nodes: None Other findings: None RIGHT PLEURAL SPACE: Effusion: None Calcification: None Thickening: None Pneumothorax: None LEFT PLEURAL SPACE: Effusion: None Calcification: None Thickening: None Pneumothorax: None HEART: Heart Size: Mildly enlarged Coronary calcification: Mild Pericardial effusion: None OTHER FINDINGS: Upper abdomen: No significant abnormality Bony thorax: Degenerative changes Supraclavicular region: No significant abnormalityOther: No significant abnormalityI IMPRESSION: 1. Pulmonary nodules as described. FOLLOW UP CT CHEST RECOMMENDATION: Follow-up low dose CT recommended in [address] LUNG RAD: LUNG RAD CATEGORY 3 probably benign
== END | disposition home or self-care (01) ==
LOC: RADCTMAIN 06:02
PROVIDERS: ATTEND Family Medicine
DX: Z12.2 Encounter for screening for malignant neoplasm of respiratory organs (principal); R91.8 Other nonspecific abnormal finding of lung field; Z87.891 Personal history of nicotine dependence
CPT/HCPCS: 71271

== ENCOUNTER 2022-11-20 16:25 | Emergency (ER) | payer BC ==
[2022-11-20 16:30] VITALS: BP 167/75; PULSE 62; RESP 18; TEMP 98.6
[2022-11-20] MEDS ORDERED: LIDOCAINE 5% PATCH TOPICAL STA (17:12)
[2022-11-20] MEDS ORDERED: KETOROLAC 15 MG/ML 1 ML VIAL IVP STA (17:12)
[2022-11-20] MEDS ORDERED: CYCLOBENZAPRINE 5 MG TAB PO STA (17:12)
--- NOTE | 2022-11-20 18:01 | ED ---
Back Pain HPI - General Chief Complaint: Back Pain/Injury Stated Complaint: BACK PAIN Time Seen by Provider: 11/20/22 17:04 Source: patient - History of Present Illness Initial Comments: Patient is a 57-year-old male who presents to the emergency department for back pain. It started yesterday as patient was lifting a box at work. Patient reports pain in his middle back which is worse with movement. Took Tylenol with some relief. Denies any numbness and tingling. Denies loss of bowel or bladder function. Denies chest pain and shortness of breath. Denies urinary symptoms. - Related Data Home Medications Medication Instructions Recorded Confirmed lisinopriL [Zestril] 40 mg PO DAILY 04/13/20 04/22/21 Famotidine [Pepcid] 20 mg PO BID 10/13/20 04/22/21 Ticagrelor [Brilinta] 90 mg PO BID 10/13/20 04/22/21 amLODIPine BESYLATE 10 mg PO DAILY 10/13/20 04/22/21 DULoxetine HCL [Cymbalta] 60 mg PO DAILY 03/16/21 04/22/21 Fluconazole [Diflucan] 100 mg PO DAILY 04/22/21 04/22/21 Propranolol LA [Inderal LA] 60 mg PO DAILY 04/22/21 04/22/21 Previous Rx's Medication Instructions Recorded Aspirin 81 mg PO DAILY #30 chew 04/14/20 Atorvastatin [Lipitor] 80 mg PO DAILY #30 tab 04/14/20 metFORMIN HCL [Glucophage] 850 mg PO BID #60 tab 04/14/20 predniSONE 50 mg PO DAILY #5 tab 04/22/21 Doxycycline Hyclate 100 mg PO BID 10 Days #20 tab 04/05/22 Cyclobenzaprine [Flexeril] 5 mg PO TID PRN #15 tablet 11/20/22 Ibuprofen [Motrin] 800 mg PO Q8HR PRN #30 tab 11/20/22 Lidocaine 5% Patch [Lidoderm 5% 1 patch TOPICAL DAILY PRN #7 patch 11/20/22 Patch] Allergies Allergy/AdvReac Type Severity Reaction Status Date / Time shellfish derived [Shellfish] Allergy Severe Anaphylaxis Verified 11/20/22 16:30 sulfamethoxazole Allergy Severe Blistering Verified 11/20/22 16:30 [From Bactrim] all over body (not hives) trimethoprim [From Bactrim] Allergy Severe Blistering Verified 11/20/22 16:30 all over body (not hives) monosodium glutamate [MSG] AdvReac Nausea & Verified 11/20/22 16:30 Vomiting Review of Systems ROS Statement: Those systems with pertinent positive or pertinent negative responses have been documented in the HPI. ROS Other: All systems not noted in ROS Statement are negative. 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 lt carotid endarterectomy. peg tube placed and then removed Past Anesthesia/Blood Transfusion Reactions: No Reported Reaction Date of Last Stent Placement:: september 2020 Past Psychological History: Anxiety Smoking Status: Former smoker Past Alcohol Use History: Rare Past Drug Use History: None Reported - Past Family History Mother Family Medical History: Diabetes Mellitus General Exam Head exam: Present: atraumatic, normocephalic, normal inspection Eye exam: Present: normal appearance, PERRL, EOMI. Absent: scleral icterus, conjunctival injection, periorbital swelling Respiratory exam: Present: normal lung sounds bilaterally. Absent: respiratory distress, wheezes, rales, rhonchi, stridor Cardiovascular Exam: Present: regular rate, normal rhythm, normal heart sounds. Absent: systolic murmur, diastolic murmur, rubs, gallop, clicks Back exam: Present: normal inspection, full ROM, paraspinal tenderness (thoracic bilateral ). Absent: vertebral tenderness Neurological exam: Present: alert, oriented X3, CN II-XII intact Expanded Sensory exam: Upper Extremity Light Touch: Normal, Lower Extremity Light Touch: Normal Motor strength exam: RUE: 5, LUE: 5, RLE: 5, LLE: 5 Psychiatric exam: Present: normal affect, normal mood Skin exam: Present: warm, dry, intact, normal color. Absent: rash Course Vital Signs 11/20/22 16:27 Temperature 98.6 F Pulse Rate 62 Respiratory 18 Rate Blood Pressure 167/75 O2 Sat by Pulse 95 Oximetry Medical Decision Making - Medical Decision Making Was pt. sent in by a medical professional or institution (DEONTE Long, CHLORINE CELLS OPERATOR, urgent care, hospital, or senior care...) When possible be specific @ -urgent care today Did you speak to anyone other than the patient for history (EMS, parent, family, police, friend...)? What history was obtained from this source @ -No Did you review nursing and triage notes (agree or disagree)? Why? @ -I reviewed and agree with nursing and triage notes Were old charts reviewed (outside hosp., previous admission, EMS record, old EKG, old radiological studies, urgent care reports/EKG's, senior care records)? Report findings @ -No old charts were reviewed Differential Diagnosis (chest pain, altered mental status, abdominal pain women, abdominal pain men, vaginal bleeding, weakness, fever, dyspnea, syncope, headache, dizziness, GI bleed, back pain, seizure, CVA, palpatations, mental health)? @ Differential Back Pain: Strain, zoster, cauda equina syndrome, epidural abscess, vertebral osteomyelitis, discitis, fracture, subluxation, disc herniation, DJD, spinal stenosis, dissection, AAA, pancreatitis, peptic ulcer disease, pyelonephritis, kidney stone, this is not meant to be an all-inclusive list. EKG interpreted by me (3pts min.). @ -None X-rays interpreted by me (1pt min.). @ -None done CT interpreted by me (1pt min.). @ -None done U/S interpreted by me (1pt. min.). @ -None done What testing was considered but not performed or refused? (CT, X-rays, U/S, labs)? Why? @ -Considered imaging all of her clinical presentation consistent with muscle strain. No midline tenderness What meds were considered but not given or refused? Why? @ -None Did you discuss the management of the patient with other professionals (professionals i.e. DEONTE Long, CHLORINE CELLS OPERATOR, lab, RT, psych nurse, administrator social welfare, storage architect, teacher, occupational health and safety officer, case sealer)? Give summary @ -No Was smoking cessation discussed for >3mins.? @ -No Was critical care preformed (if so, how long)? @ -No Were there social determinants of health that impacted care today? How? (Homelessness, low income, unemployed, alcoholism, drug addiction, transportation, low edu. Level, literacy, decrease access to med. care, assisted, rehab)? @ -No Was there de-escalation of care discussed even if they declined (Discuss DNR or withdrawal of care, Hospice)? DNR status @ -No What co-morbidities impacted this encounter? (DM, HTN, Smoking, COPD, CAD, Cancer, CVA, ARF, Chemo, Hep., AIDS, mental health diagnosis, sleep apnea, morbid obesity)? @ -None Was patient admitted / discharged? Hospital course, mention meds given and rout e, prescriptions, significant lab abnormalities, going to OR and other pertinent info. @ -Discharged Undiagnosed new problem with uncertain prognosis? @ -No Drug Therapy requiring intensive monitoring for toxicity (Heparin, Nitro, Insulin, Cardizem)? @ -No Were any procedures done? @ -No Diagnosis/symptom? @ -Thoracic muscle strain Acute, or Chronic, or Acute on Chronic? @Acute Uncomplicated (without systemic symptoms) or Complicated (systemic symptoms)? @Uncomplicated Side effects of treatment? @ -No Exacerbation, Progression, or Severe Exacerbation? @ -No Poses a threat to life or bodily function? How? (Chest pain, [place], MT, pneumonia, PE, COPD, DKA, ARF, appy, cholecystitis, CVA, Diverticulitis, Homicidal, Suicidal, threat to staff... and all critical care pts) @ -No Dr. Calhoun is my attending Disposition Clinical Impression: Strain of thoracic back region Disposition: HOME SELF-CARE Condition: Good Instructions (If sedation given, give patient instructions): Low Back Strain (ED), Lower Back Exercises (ED) Additional Instructions: Apply warm compress to injury and perform light stretching. Take medication as directed. Do not drink alcohol or operate machinery while taking Flexeril as it can cause drowsiness. Please follow-up with your primary care provider in 1-2 days. Return to the emergency department if you experience new, concerning, or worsening symptoms. Prescriptions: Cyclobenzaprine [Flexeril] 5 mg PO TID PRN #15 tablet PRN Reason: Muscle Spasm Lidocaine 5% Patch [Lidoderm 5% Patch] 1 patch TOPICAL DAILY PRN #7 patch PRN Reason: Pain Ibuprofen [Motrin] 800 mg PO Q8HR PRN #30 tab PRN Reason: Pain Is patient prescribed a controlled substance at d/c from ED?: No Referrals: Mili Rivero MD [Primary Care Provider] - 1-2 days
== END 2022-11-20 18:19 | disposition home or self-care (01) ==
LOC: EC 16:25
DX: S29.012A Strain of muscle and tendon of back wall of thorax, initial encounter (principal); E11.9 Type 2 diabetes mellitus without complications; I10 Essential (primary) hypertension; Z86.73 Personal history of transient ischemic attack (TIA), and cerebral infarction without residual deficits; F41.9 Anxiety disorder, unspecified; Z87.891 Personal history of nicotine dependence; Z88.2 Allergy status to sulfonamides; Z91.013 Allergy to seafood; Z88.8 Allergy status to other drugs, medicaments and biological substances; Z79.899 Other long term (current) drug therapy; X50.0XXA Overexertion from strenuous movement or load, initial encounter
CPT/HCPCS: 99283; 96374; J1885

== ENCOUNTER → 2023-09-27 | Outpatient (CLI) | payer BC ==
[2023-09-27 15:34] LABS: NT-Pro-B-Type Natriuretic Pept 471 pg/mL (0-125)
[2023-09-27 15:59] LABS: ALT 29 U/L (10-49); AST 19 U/L (14-35); Albumin 4.7 g/dL (3.8-4.9); Albumin/Globulin Ratio 2.76 Ratio (1.60-3.17); Alkaline Phosphatase 43 U/L (41-126); Blood Urea Nitrogen 16.6 mg/dL (9.0-27.0); Calcium 9.1 mg/dL (8.7-10.3); Carbon Dioxide 22.7 mmol/L (21.6-31.8); Chloride 105 mmol/L (96-109); Globulin 1.7 g/dL (1.6-3.3); Glucose 144 mg/dL (70-110); LDL Cholesterol,Calculated 52.8 mg/dL (0.0-131.0); Potassium 4.5 mmol/L (3.5-5.5); Sodium 141 mmol/L (135-145); Total Bilirubin 0.5 mg/dL (0.3-1.2); Total Protein 6.4 g/dL (6.2-8.2)
[2023-09-27 16:20] LABS: Basophils # (A) 0.05 X 10*3/uL (0.00-0.10); Basophils % (A) 0.9 %; Eosinophils # (A) 0.28 X 10*3/uL (0.04-0.35); Eosinophils % (A) 4.9 %; HCT 45.1 % (39.6-50.0); HGB 14.9 g/dL (13.0-17.0); Lymphocytes # (A) 1.01 X 10*3/uL (0.90-5.00); Lymphocytes % (A) 17.7 %; MCH 31.4 pg (27.0-32.0); MCV 95.1 FL (80.0-97.0); Mean Platelet Volume 10.2 FL (9.5-12.2); NRBC Per 100 WBC 0 X 10*3/uL (0.00-0.01); Neutrophils # (A) 3.95 X 10*3/uL (1.80-7.70); Neutrophils % (A) 69.1 %; Platelet Count 131 X 10*3/uL (140-440); RBC 4.74 X 10*6/uL (4.40-5.60); RDW 12.8 % (11.5-14.5); WBC 5.71 X 10*3/uL (4.50-10.00)
== END | disposition home or self-care (01) ==
LOC: LABWHC1 09:12
PROVIDERS: ATTEND Internal Medicine
DX: I10 Essential (primary) hypertension (principal); I25.10 Atherosclerotic heart disease of native coronary artery without angina pectoris; E03.9 Hypothyroidism, unspecified; I69.30 Unspecified sequelae of cerebral infarction; Z98.62 Peripheral vascular angioplasty status; E78.5 Hyperlipidemia, unspecified; R06.02 Shortness of breath
CPT/HCPCS: 36415; 80053; 80061; 83880; 84439; 84443; 85025

== ENCOUNTER → 2023-10-02 | Outpatient (CLI) | payer BC ==
[2023-10-02 10:00] LABS: African American GFR (CKD) >90 (>60 ml/min/1.73 sqM); Blood Urea Nitrogen 17 mg/dL (9-20); Non-African American GFR(CKD) >90 (>60 ml/min/1.73 sqM)
--- NOTE | 2023-10-02 10:27 | CT ---
EXAMINATION TYPE: CT chest w con DATE OF EXAM: 10/02/2023 COMPARISON: Low-dose CT dated 11/07/[address] chest 08/16/2022 HISTORY: abnormal findings, lung nodule CT DLP: 645.10 mGycm Automated exposure control for dose reduction was used. CONTRAST: CT scan of the chest is performed with IV Contrast, patient injected with 100 mL of Isovue 300. FINDINGS: LUNGS: Stable 6.6 mm lingular nodule dating back to 2019. Stable 5 mm right upper lobe nodule image 3 1 dating back to 2019. Stable left 4.8 mm right upper lobe pulmonary nodule image 15 dating back to 2 019. There is no pleural effusion or pneumothorax seen. The tracheobronchial tree is patent. MEDIASTINUM: There are no greater than 1 cm hilar or mediastinal lymph nodes. No pericardial effusi on is seen. Thoracic aorta is of normal caliber. Moderate coronary artery calcifications. The heart is not enlarged. UPPER ABDOMEN: No significant abnormality appreciated. OTHER: No additional significant abnormality is seen. IMPRESSION: 1. Stable and presumed benign pulmonary nodularity dating back to 2018. 2. Moderate coronary artery calcifications.
== END | disposition home or self-care (01) ==
LOC: RADCTMAIN 09:13
PROVIDERS: ATTEND Internal Medicine Critical Care Medicine
DX: I25.10 Atherosclerotic heart disease of native coronary artery without angina pectoris (principal); R91.8 Other nonspecific abnormal finding of lung field; R91.1 Solitary pulmonary nodule
CPT/HCPCS: 82565; 84520; 71260; 36415; Q9967

== ENCOUNTER → 2023-12-18 | Outpatient (CLI) | payer BC ==
--- NOTE | 2023-12-18 16:17 | XR ---
EXAMINATION TYPE: XR shoulder complete LT DATE OF EXAM: 12/18/2023 4:08 PM CLINICAL INDICATION:Male, 58 years old with history of M25.512 LT SHOULDER PAIN, M54.12 RADICULOPATHY , CE; [facility] COMPARISON: None TECHNIQUE: XR shoulder complete LT; examined in AP, internally rotated and scapular Y projections. FINDINGS: No evidence of acute osseous pathology, joint dislocation, or soft tissue swelling. The remaining po rtions of the visualized chest are unremarkable. Mild degeneration changes of the acromion and dista l clavicle. IMPRESSION: 1. No acute osseous pathology. 2. Mild shoulder osteoarthrosis.
--- NOTE | 2023-12-18 16:24 | XR ---
EXAMINATION TYPE: XR cervical spine limited DATE OF EXAM: 12/18/2023 4:08 PM CLINICAL INDICATION:Male, 58 years old with history of M25.512 LT SHOULDER PAIN, M54.12 RADICULOPATHY , CE; [facility] COMPARISON: None TECHNIQUE: The cervical spine was imaged in frontal, lateral, and odontoid. FINDINGS: The osseous structures show normal alignment without evidence of an acute fracture. There are osteoph ytes noted throughout the cervical spine on the anterior and lateral aspects of the vertebral bodies. The intervertebral disk spaces are narrowed at multiple levels Pedicles are intact. Soft tissues ar e within normal limits. The odontoid appears intact. IMPRESSION: 1. No fracture or dislocation. 2. Mild degenerative disc disease changes of the cervical spine.
== END | disposition home or self-care (01) ==
LOC: RADXRMAIN 15:44
PROVIDERS: ATTEND Nurse Practitioner Family
DX: R20.2 Paresthesia of skin (principal); M19.012 Primary osteoarthritis, left shoulder; M50.10 Cervical disc disorder with radiculopathy, unspecified cervical region
CPT/HCPCS: 72040

== ENCOUNTER → 2024-10-29 | Outpatient (CLI) | payer BC ==
[2024-10-29 19:32] LABS: Blood Urea Nitrogen 13.9 mg/dL (9.0-27.0); Carbon Dioxide 23.8 mmol/L (21.6-31.8); Chloride 107 mmol/L (96-109); Potassium 5.2 mmol/L (3.5-5.5); Sodium 142 mmol/L (135-145)
[2024-10-29 20:11] LABS: HCT 44.2 % (39.6-50.0); HGB 14.6 g/dL (13.0-17.0); MCH 31.7 pg (27.0-32.0); MCV 95.9 FL (80.0-97.0); Mean Platelet Volume 10.5 FL (9.5-12.2); NRBC Per 100 WBC 0 X 10*3/uL (0.00-0.01); Platelet Count 135 X 10*3/uL (140-440); RBC 4.61 X 10*6/uL (4.40-5.60); RDW 12.8 % (11.5-14.5); WBC 5.01 X 10*3/uL (4.50-10.00)
== END | disposition home or self-care (01) ==
LOC: LABWHC1 13:04
PROVIDERS: ATTEND Internal Medicine
DX: Z01.812 Encounter for preprocedural laboratory examination (principal); I25.10 Atherosclerotic heart disease of native coronary artery without angina pectoris
CPT/HCPCS: 36415; 80051; 82565; 84520; 85027

== ENCOUNTER 2024-11-05 08:27 | Day surgery (SDC) | payer BC ==
[~2024-11-05 08:27] MED LIST changes: -ALPRAZolam 0.5 MG TAB PO PRN; -ASPIRIN 325 MG TAB PO STA; +HEPARIN SODIUM,PORCINE (1 ML) 2,500 UNIT in SODIUM CHLORIDE 0.9% 250 ML IRRIGATION PRN; +HEPARIN SODIUM,PORCINE 10,000 UNIT in SODIUM CHLORIDE 0.9% 1,000 ML IRRIGATION PRN; -SODIUM CHLORIDE 0.9% 1,000 ML in EMPTY BAG 1 BAG IV ONE
[2024-11-05] MEDS: IV FLUID CONTINUATION 1,000 ML IV ONE (08:32)
[2024-11-05 08:51] VITALS: RESP 16; TEMP 98
[2024-11-05 08:55] LABS: Glucose,Whole Blood 236 mg/dL (70-110)
[2024-11-05] MEDS: ATORVASTATIN 80 MG TAB PO STA (08:55)
[2024-11-05] MEDS: ASPIRIN 325 MG TAB PO STA (08:55)
[2024-11-05] MEDS: EMPTY BAG 1 BAG with SODIUM CHLORIDE 0.9% 1,000 ML IV ONE (08:55)
[2024-11-05] MEDS: INSULIN LISPRO (HumaLOG) 100 UNIT/ML 10 mL VL SQ ONE (09:05)
[2024-11-05] MEDS: ALPRAZolam 0.5 MG TAB PO PRN (09:09)
[2024-11-05] MEDS: MIDAZOLAM 2 MG/2 ML VIAL IVP ONE (10:56)
[2024-11-05] MEDS: fentaNYL (PF) 50 MCG/ML 2 ML AMP IVP ONE (10:57)
[2024-11-05] MEDS: LIDOCAINE 1% INJ 10MG/ML (5 ML VIAL-PF) SQ ONE (11:04)
[2024-11-05] MEDS: VERAPAMIL SYRINGE (5 MG/10 ML) INTRAARTER ONE (11:05)
[2024-11-05] MEDS: HEPARIN SODIUM 1,000 UN/ML (10ML VL) IVP ONE (11:07)
[2024-11-05] MEDS: IOPAMIDOL-370 100ML BTL INJ ONE (11:20)
[2024-11-05 15:48] VITALS: BP 113/55; PULSE 57
--- NOTE | 2024-11-05 18:13 | P.CARDCATH ---
Description of Procedure: PROCEDURES PERFORMED: Left heart catheterization, bilateral coronary angiography, ultrasound guided arterial access INDICATION: Cardiomyopathy CONSENT:I have discussed the risks, benefits and alternative therapies for the above-mentioned procedure and for both sedation/analgesia as well as necessary blood product administration, if indicated, as they pertain to this patient. The patient has indicated understanding and acceptance of the risks and procedures discussed. PROCEDURE: After the risks, benefits and alternatives of the above mentioned procedure explained in detail with the patient, informed consent was obtained. Patient was taken to the catheterization lab and prepped and draped in usual fashion. Ultrasound guidance was used to assess for arterial access. 1% lidocaine was used to anesthetize the right radial artery. A 6-American sheath was placed in the right radial artery using modified Seldinger technique and ultrasound guidance. Left coronary angiography was performed with a 5-American JL 3.5 catheter and right coronary angiography was performed with a 5-American AR2 catheter in various views. A 5-American AR2 catheter was inserted into the left ventricle and pressure measurements were obtained. The decision was made to perform functional assessment of the LAD and circumflex lesion. Heparin was given. A 0.014 pressure wire was advanced in the left main and normalized. It was then advanced into the mid LAD and IFR/RFR was performed and was abnormal at 0.81. There was gradual step up across the entire proximal to mid LAD. Next the wire was advanced in the mid to distal circumflex and IFR was performed and was normal at 0.91. The right radial sheath was removed and a TR band was placed with hemostasis achieved. The patient tolerated the procedure well. Patient was transported back to the post catheterization holding area in stable condition. Conscious Sedation: Patient was monitored under the direct supervision of myself for conscious sedation using Versed and fentanyl for a total duration of 17 minutes HEMODYNAMICS: Aorta: 129/72 LV: 130/10, LVEDP 20 SELECTIVE CORONARY ARTERIOGRAPHY: LEFT MAIN: The left main is a large caliber vessel which bifurcates into the LAD and circumflex. There is no significant stenosis. LEFT ANTERIOR DESCENDING CORONARY ARTERY: LAD is a large caliber vessel which wraps around to the apex. There a proximal LAD 50 to 60% stenosis and otherwise 20% mid LAD stenosis. There is a patent mid to distal LAD stent. There are [id number] collaterals to the RCA. LEFT CIRCUMFLEX CORONARY ARTERY: Left circumflex is a moderate caliber vessel with proximal 40-50% stenosis and otherwise patent mid to distal circumflex stent and mild 10 to 20% stenosis. RIGHT CORONARY ARTERY: The right coronary artery is a moderate caliber vessel which gives off a PDA and PLV branch and is the dominant vessel. There is a patent mid RCA stent with 50% stenosis and otherwise similar-appearing 100% RATE REVIEWER of the mid to distal RCA. FINAL IMPRESSION: 1. CAD as described above including 50 to 60% proximal LAD long lesion, patent mid LAD and circumflex stents, 40 to 50% proximal circumflex stenosis and similar 100% RATE REVIEWER of the RCA 2. Mildly elevated left sided filling pressures 3. Abnormal IFR LAD at 0.81, normal IFR circumflex at 0.91. PLAN: 1. Aggressive risk factor modification per most recent ACC/AHA guidelines. 2. CAD out of proportion to his cardiomyopathy and IFR abnormal in the LAD territory however no significant ischemia in the LAD territory noted on stress test. Additionally not having angina type symptoms and more of his symptoms are related to heart failure. Therefore optimize heart failure regimen and likely consider patient for biventricular pacemaker or defibrillator with significant LBBB.
== END 2024-11-05 15:25 | disposition home or self-care (01) ==
LOC: CATHCVL 08:27
PROVIDERS: ATTEND Internal Medicine
DX: I25.10 Atherosclerotic heart disease of native coronary artery without angina pectoris (principal); I42.9 Cardiomyopathy, unspecified; I25.82 Chronic total occlusion of coronary artery; I44.7 Left bundle-branch block, unspecified; I50.9 Heart failure, unspecified; I11.0 Hypertensive heart disease with heart failure; E11.9 Type 2 diabetes mellitus without complications; E78.5 Hyperlipidemia, unspecified; Z72.0 Tobacco use; Z95.5 Presence of coronary angioplasty implant and graft; Z95.0 Presence of cardiac pacemaker; Z88.1 Allergy status to other antibiotic agents; Z88.2 Allergy status to sulfonamides; Z79.51 Long term (current) use of inhaled steroids; Z79.02 Long term (current) use of antithrombotics/antiplatelets; Z79.84 Long term (current) use of oral hypoglycemic drugs; Z79.899 Other long term (current) drug therapy
CPT/HCPCS: 93458; 93799; 99152; C1769 ×2; C1894; J2250; J2003; J3010; J1644; Q9967